=== PATIENT | female | born 1970 | race Caucasian/White ===

== ENCOUNTER 2020-09-03 14:05 | Emergency (ER) | payer MEDICAID, SELFPAY ==
[2020-09-03 14:17] VITALS: BP 145/81; PULSE 115; RESP 26; TEMP 36.9; O2SAT 99; BMI 16.4
--- NOTE | 2020-09-03 14:29 | XR_ITS ---
WS: [id number] XR chest 1V portable [id number] REASON FOR EXAM: chest pain FINDINGS: There is a mass density projected over the medial upper portion of the right lung which appears to be mediastinal, possibly enlarged lymph node or lymph nodes. This is associated with a very irregular t hickening of the apex of the right lung. The remainder of the mediastinum and lungs are unremarkable. No abnormality of the bony thorax is identified. XR/XR chest 1V portable [id number] IMPRESSION: The lung abnormalities described above were not present on views of the cervica l spine 05/23/2016 with this area of the chest included on the AP view. 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 A contrast-enhanced CT scan of the chest wou ld be the next most appropriate imaging to determine the diagnosis.
[2020-09-03 15:06] VITALS: BP 135/68; PULSE 108; RESP 18; O2SAT 100
--- NOTE | 2020-09-03 15:08 | ED_ITS ---
HPI - Chest Pain General: Chief Complaint: Chest Pain Stated Complaint: CP Time Seen by Provider: 09/03/20 14:29 History of Present Illness: HPI narrative: 50-year-old female presents emergency room with complaint of chest pain radiating to her shoulder blades. This began 4 days ago. She states it is worse when she takes deep breath better with shallow breathing other than that she has not really taken any medicines for she has noticed anything else that seems to relieve it. She denies any trauma. She not had any fever sweats or chills he is not had a productive cough or particularly been short of breath other than the fact that she just cannot take a deep breath. It is mildly reproducible with patient in the anterior chest wall. MD complaint: chest pain Onset (ago): day(s) (4) Timing of current episode: constant Onset: during rest Pain location: left chest Pain radiation: back, left shoulder and right shoulder Severity: severe Quality: sharp Relieving factors: nothing Exacerbating factors: other (Inspiration) Associated symptoms: Reports sense of impending doom; Deny abdominal pain, diaphoresis, dyspnea, fever(s), leg edema, nausea, palpitations, syncope, vomiting or other Review of Systems Const: Denies: fever(s) or diaphoresis ENMT: Denies: throat pain, ear or mastoid pain, nasal discharge or nasal congestion Card: Denies: palpitations or syncope Resp: Denies: dyspnea GI: Denies: abdominal pain, nausea or vomiting : Denies: flank pain, difficulty voiding, dysuria, urinary frequency or urinary urgency Skin/Breast: Denies: rash or pruritus [facility] ED PFSH: Medical History Anxiety Surgical History Delivery by section H/O dilation and curettage H/O LEEP History of hysterectomy S/P lumpectomy, right breast Physical Exam Const: COMMON NORMALS: no acute distress GENERAL APPEARANCE: cooperative and comfortable ORIENTATION/CONSCIOUSNESS: Yes awake, Yes oriented to person, Yes oriented to place and Yes oriented to time HENMT: COMMON NORMALS: normocephalic, atraumatic and hearing grossly normal bilaterally HEAD & SCALP: normocephalic and atraumatic Eye: COMMON NORMALS: Equal, round and reactive pupils present, EOMs intact bilaterally, conjunctivae normal and no scleral icterus CONJUNCTIVA: Yes conjunctivae normal PUPIL: Yes Equal, round and reactive pupils present Neck/C-Spine: COMMON NORMALS: full ROM, no lymphadenopathy, supple and no JVD Lymph: LYMPHATIC: no lymphadenopathy noted and no lymphedema noted Resp: COMMON NORMALS: normal respiratory effort, No retractions, No use of accessory muscles and clear to auscultation bilaterally AUSCULTATION: clear to auscultation bilaterally Cardio: COMMON NORMALS: no JVD, regular rate, regular rhythm and No murmurs present (Cardio) RATE: regular rate RHYTHM: regular rhythm GI: COMMON NORMALS: Soft to palpation and No hepatosplenomegaly present AUSCULTATION: Yes normoactive bowel sounds PALPATION: Yes Soft to palpation, No Tenderness to palpation present (GI), No Guarding due to palpation present (GI) and Yes No hepatosplenomegaly present Extremity: COMMON NORMALS: normal to inspection, capillary refill normal, no clubbing, cyanosis or edema, no calf tenderness and no pedal edema Neuro: SENSORIUM/ORIENTATION: Yes oriented to person, Yes oriented to place and Yes oriented to time Skin: COMMON NORMALS: no rashes or lesions noted GENERAL SKIN EXAM: no rashes or lesions noted Course Vital Signs: Vital signs: Vital Signs Temperature 98.5 F 09/03/20 14:17 Pulse Rate 97 09/03/20 15:48 Respiratory Rate 18 09/03/20 15:48 Blood Pressure 104/73 09/03/20 15:48 Pulse Oximetry 99 09/03/20 15:48 MDM - Chest Pain MDM Narrative: Medical decision making narrative: CT shows chest mass that it on the right that is highly suspicious for cancer with metastasis we will go and discharge home set up see pulmonology for bronchoscopy. Lab Data: Labs: Lab Results 09/03/20 09/03/20 09/03/20 Range/Units 15:03 15:03 15:03 WBC 15.3 H (4.0-10.0) 10^3/ uL RBC 4.40 (4.1-5.3) 10^6/u L Hgb 13.5 (11.5-15.3) g/dL Hct 41.7 (37.0-47.0) % MCV 94.8 (81-99) fL MCH 30.7 (28.0-34.0) pg MCHC 32.4 (30.0-36.0) g/dL RDW 12.2 (12.1-15.1) % Plt Count 332 (130-400) 10^3/c mm MPV 10.1 (7.4-10.4) fL Neut % (Auto) 71.0 % Lymph % (Auto) 19.0 % [place] % (Auto) 8.3 % Eos % (Auto) 0.8 % Baso % (Auto) 0.4 % Neut # (Auto) 10.89 H (1.8-7.7) 10^3/u L Lymph # (Auto) 2.9 (0.8-4.8) 10^3/u L [place] # (Auto) 1.3 H (0.2-0.9) 10^3/u L Eos # (Auto) 0.1 (0.0-0.8) 10^3/u L Baso # (Auto) 0.1 (0.0-0.1) 10^3/u L Nucleated RBC % (a uto) 0 % Nucleated RBCs # 0.0 /100WBC Sodium 140 (136-145) mmol/L Potassium 3.9 (3.5-5.1) mmol/L Chloride 105 (98-107) mmol/L Carbon Dioxide 24 (22-29) mmol/L Anion Gap 14.9 (5-19) BUN 5 L (6-20) mg/dL Creatinine 0.5 (0.5-0.9) mg/dL GFR Calculation 131.7 H (90-130) mL/min Glucose 93 (65-115) mg/dL Calculated Osmolal ity 287 (285-295) mOsm/k g Calcium 9.5 (8.5-10.5) mg/dL Total Bilirubin 0.2 (0.15-1.2) mg/dL AST 18 (0-32) U/L ALT 7 (0-33) U/L Alkaline Phosphata se 62 (35-105) IU/L Troponin T Baselin e 6 (0-10) ng/L Total Protein 6.7 (6.6-8.7) g/dL Albumin 4.6 (3.5-5.2) g/dL Globulin 2.1 (1.3-4.6) g/dL Discharge Plan Discharge Patient Disposition: Home Clinical Impression: Lung mass, Pleuritic chest pain Condition: Stable Prescriptions: New hydrocodone-acetaminophen 5-325 mg tablet 1 tab PO Q6H PRN (Reason: pain) Qty: 25 RF: 0 Zofran 4 mg tablet 4 mg PO Q6H PRN (Reason: nausea and vomiting) Qty: 20 RF: 0 Ativan 1 mg tablet 1 mg PO Q6H PRN (Reason: anxiety) Qty: 14 RF: 0 Discharge Orders: Discharge ED (Routine); Ordered 09/03/20 Ordered By: Nicola Sibley Referrals: Aslhey Jennings FNP [Primary Care Provider] - Activity Restrictions/Additional Instructions: Case management will call to assist to getting referrals for further evaluation of the chest mass. If you have increasing difficulty or uncontrollable pain return to the emergency room. Coding Level of Care Code ED Potter Or Ceramic Artist for Joeg Fwd Exam Comprehensive
[2020-09-03 15:11] LABS: Basophils # 0.1 10^3/uL (0.0-0.1); Basophils % 0.4 %; Eosinophils # 0.1 10^3/uL (0.0-0.8); Eosinophils % 0.8 %; Hematocrit 41.7 % (37.0-47.0); Hemoglobin 13.5 g/dL (11.5-15.3); Lymphocytes # 2.9 10^3/uL (0.8-4.8); Mean Corpuscular HGB Conc 32.4 g/dL (30.0-36.0); Mean Corpuscular Hemoglobin 30.7 pg (28.0-34.0); Mean Corpuscular Volume 94.8 fL (81-99); Mean Platelet Volume 10.1 fL (7.4-10.4); Monocytes # 1.3 10^3/uL (0.2-0.9); Monocytes % 8.3 %; Neutrophils # 10.89 10^3/uL (1.8-7.7); Nucleated Red Blood Cells % 0 %; Platelet Count 332 10^3/cmm (130-400); Red Cell Distribution Width 12.2 % (12.1-15.1); White Blood Count 15.3 10^3/uL (4.0-10.0)
--- NOTE | 2020-09-03 15:15 | CT_ITS ---
WS: [id number] CT CHEST ANGIOGRAPHY WITH REFORMATS HISTORY: Chest pain and abnormal chest CT. TECHNIQUE: Contiguous axial images are obtained through the chest during arterial injection of intrav enous contrast. Images are reconstructed to evaluate the pulmonary arteries. MIP imaging also reviewe d. All CT scans at [facility] use at least one of these dose optimization techniques: aut omated exposure control; mA and/or kV adjustment per patient size (includes targeted exams where dose is matched to clinical indication); or iterative reconstruction. CONTRAST: Omnipaque 350; 95 mL IV. DLP: 308.29 mGy.cm COMPARISON: Chest radiograph 09/03/2020. Very good opacification of the pulmonary arteries. No pulmonary embolism is identified. Mildly ectati c thoracic aorta. Scattered calcified plaque and intimal thickening. Heart size is normal. No RIGHT h eart strain. No pericardial or pleural effusions. Marked emphysema. RIGHT apical soft tissue mass centered at the apex, greatest laterally. Soft tissue mass measures at least 6.0 x 2.6 cm. There is additional interstitial thickening extending into the RIGHT upper lobe suggesting lymphangitic spread of tumor. No bone destruction is evident. Mass does e xtend medially to the upper thoracic vertebral bodies and is closely associated with the foramen at T 1-2. No supraclavicular lymph nodes are identified. Marked emphysema and hyperexpansion of both lungs. 5 mm nodule along the superior RIGHT major fissure . There is some very small indeterminate nodules along the RIGHT diaphragmatic surface. There is extensive mediastinal and hilar lymphadenopathy. Largest confluent lymph node group is along the RIGHT paratracheal location measuring 5.2 x 2.5 cm. Additional lymph nodes retroesophageal causi ng obscuration of the esophagus. Large RIGHT hilar lymph node maximum diameter 1.5 cm. There are poli tional smaller subcarinal lymph nodes. 1.1 cm lymph node near the RIGHT pulmonary vein. No evidence for metastatic disease in the liver on this early arterial enhancement examination. Hyper plastic LEFT adrenal gland. No evidence for metastatic disease to the osseous structures. CT/CT angio chest PE protcl [id number] IMPRESSION: 1. RIGHT apical soft tissue mass measures at least 6.0 x 2.6 cm. Likely a Panc oast tumor or metastatic disease.. 2. There is significant lymphadenopathy within the mediastinum and hilum. Larg est confluent group of lymph nodes is RIGHT paratracheal measuring 5.2 x 2.5 cm . 3. Additional small nodules along the RIGHT diaphragmatic surface may be metas tatic deposits. 4. Severe chronic emphysema. 5. Suspicious for lymphangitic spread of tumor into the RIGHT upper lobe. 6. No rib destruction or metastatic disease to the bones by CT. 7. No pulmonary embolism. 8. Mildly hyperplastic LEFT adrenal gland. Early metastatic lesion is not excl uded.
[2020-09-03 15:37] LABS: Alanine Aminotransferase 7 U/L (0-33); Albumin Level 4.6 g/dL (3.5-5.2); Alkaline Phosphatase 62 IU/L (35-105); Anion Gap 14.9 (5-19); Aspartate Amino Transferase 18 U/L (0-32); Blood Urea Nitrogen 5 mg/dL (6-20); Calcium 9.5 mg/dL (8.5-10.5); Carbon Dioxide 24 mmol/L (22-29); Chloride 105 mmol/L (98-107); Globulin 2.1 g/dL (1.3-4.6); Glomerular Filtration Rate 131.7 mL/min (90-130); Glucose 93 mg/dL (65-115); Osmolality Calculated 287 mOsm/kg (285-295); Potassium 3.9 mmol/L (3.5-5.1); Sodium 140 mmol/L (136-145); Total Bilirubin 0.2 mg/dL (0.15-1.2); Total Protein 6.7 g/dL (6.6-8.7)
[2020-09-03 15:38] LABS: Troponin(5th) Baseline 6 ng/L (0-10)
[2020-09-03] MEDS: iohexol 350 mg/mL 100 mL Btl IV (15:41)
[2020-09-03 15:45] VITALS: RESP 15; O2SAT 100
[2020-09-03] MEDS: morphine 4 mg/mL SDV 1 mL IVP (15:45)
[2020-09-03] MEDS: ondansetron 2 mg/ML SDV 2 mL 4 MG IVP (15:46)
[2020-09-03 15:48] VITALS: BP 104/73; PULSE 97; RESP 18; O2SAT 99
[2020-09-03 16:37] VITALS: BP 145/77; PULSE 94; RESP 14; O2SAT 96
--- NOTE | 2020-09-03 20:29 | ECG_ITS ---
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 Measurements Intervals Reading Rate: 102 P: 85 FL: 115 QRS: 87 QRSD: 86 T: 75 QT: 318 QTc: 415 Interpretive Statements SINUS TACHYCARDIA WITH SHORT FL INTERVAL RIGHT ATRIAL ENLARGEMENT [0.3mV P WAVE] LEFT ATRIAL ENLARGEMENT [-0.15mV P WAVE IN V1/V2] MODERATE ST DEPRESSION [0.05+ mV ST DEPRESSION] No previous ECG available for comparison Electronically Signed On 09-03-2020 20:57:59 PLASTER MOLD MAKER by Chloe Garzon M.D. [id number]
--- NOTE | 2020-09-06 10:13 | DCPLANNER ---
manager report had message to schedule a follow up appointment for patient with pulmonolgy. manager report called [facility], spoke with Ros, gave clinic patients information. A follow up appointment was scheduled for Monday, September 14, 2020 at 1:[address] Grande. manager report spoke with patient and gave patient appointment information.
--- NOTE | 2020-11-05 13:45 | DCPLANNER ---
Patient had a follow up appointment scheduled for 09.14.21 with heart care - patient did attend appointment.
== END 2020-09-03 16:38 | disposition home or self-care (01) ==
PROVIDERS: Emergency Provider Family Medicine; PCP Nurse Practitioner Family
DX: R07.81 Pleurodynia (principal); R91.8 Other nonspecific abnormal finding of lung field
CPT/HCPCS: 12345; 71045; 71275; 80053; 84484; 85025; 93005; 96374; 96375; 99282; 99284; J2270; J2405; Q9967

== ENCOUNTER → 2020-09-07 09:17 | Outpatient (BNVA) | payer MEDICAID, SELFPAY | PROVIDERS: PCP Nurse Practitioner Family; Visit Provider Internal Medicine Critical Care Medicine | DX: R91.8 Other nonspecific abnormal finding of lung field (principal) | CPT/HCPCS: 87635 ==

== ENCOUNTER 2020-09-10 05:59 | Day surgery (SDC) | payer MEDICAID, SELFPAY ==
[2020-09-09 14:07] VITALS: BMI 16.9
[2020-09-10] VITALS (12 sets, daily range): BP systolic 86–151; BP diastolic 48–88; PULSE 77–99; RESP 16–25; TEMP 36.4–37; O2SAT 68–100
--- NOTE | 2020-09-10 | CT_ITS ---
Guided Bronchoscopy Planning CT images; total exam DLP: 809.47 mGy-cm MTDD
--- NOTE | 2020-09-10 06:25 | ANES.PREANE2 ---
Pre-Anesthetic Assessment Pre-Anesthetic Assessment: Height/Weight: Height 1.5 m Weight 38.102 kg Temp Pulse Resp BP Pulse Ox 97.5 F L 84 18 97/63 99 09/10/20 06:11 09/10/20 06:11 09/10/20 06:11 09/10/20 06:11 09/10/20 06:11 Preop Diagnosis: Suspected lung cancer Proposed Procedure: Operation Date: 09/10/20 07:00 Proposed Procedures p Bhupinder(Not Applicable) - Madie Anand MD Last intake: Intake Last Liquid Date 09/09/20 Last Liquid Time 23:45 Last Solid Date 09/09/20 Last Solid Time 19:30 Social: Social History: Alcohol (occ) and Tobacco Exam: Pre-Anes Outpt Exam: alert, oriented x 3, clear to auscultation bilaterally and regular rate & rhythm Airway: Submandibular: WNL MP: 1 Dentition: Full (dentures) History/ROS: No significant history except as noted Pulmonary: Pulmonary: CHISHOLM Comments: lung mass CV/HEM: CV/HEM: None reported : : None reported Hepatic: Hepatic: None reported GI: GI: None reported Metabolic: Metabolic: None reported Musc/skel: Musc/skel: None reported Neuropsych: Neuropsych: None reported Anesthetic Plan: ASA status: 3 Anesthesia: Anesthesia Evaluation and General Risk of > 500 ml blood loss (7ml/kg in children): No PFSH Anesthesia PFSH: Medical History Anxiety Surgical History Delivery by section H/O dilation and curettage H/O LEEP History of hysterectomy S/P lumpectomy, right breast Social History Smoking and tobacco status: current every day smoker cigarettes Years cigarettes smoked: 40 [ Other cigarette details: Hx of 1PPD x 40 Years ] Quit status (tobacco): considering quitting Second hand smoke exposure: Yes Smoking risk assessment/counseling performed?: Yes Alcohol intake: current Alcohol intake frequency: holidays/special occasions only Desire information about substance/drug rehabilitation?: No Counseling given: Yes Lives independently: Yes Household members: spouse Marital status: Current occupational status: disabled History of recent travel: No Current gender identity: Female Data Anesthesia Cardiac Studies: No Data to Display
[2020-09-10] MEDS: sodium chloride 0.9% 500 ML 999 ML IV (06:30)
[2020-09-10] MEDS: sodium chloride 0.9% 1,000 ML 30 ML IV (06:32)
--- NOTE | 2020-09-10 06:49 | W.PM.OPSUD ---
Surgery/Procedure H&P Update DATE OF PROCEDURE: September 10, 2020 DATE H&P PERFORMED: 09/08/20 H&P UPDATE INFORMATION: I have reviewed H&P completed within last 30 days, I have examined patient prior to procedure and No changes to prior documentation PREOP DIAGNOSIS: Suspected lung cancer PRIMARY INDICATION FOR PROCEDURE: Suspected lung cancer PLANNED PROCEDURE: Bronchoscopy with inspection of the airway, possible endobronchial biopsies, bronchoalveolar lavage, navigational bronchoscopy guided transbronchial biopsies of the right upper lobe lung mass, fine-needle aspiration, Cytobrush, endobronchial ultrasound-guided transbronchial needle aspiration of lymph nodes and control of bleeding Operation Date: 09/10/20 07:00 Proposed Procedures p Vertasha(Not Applicable) - Madie Anand MD
[2020-09-10] MEDS: midazolam 1 mg/mL INJ 2 mL 2 MG IVP (06:56)
[2020-09-10] MEDS: lidocaine 1% INJ 20 mL SUBCUT (08:01)
--- NOTE | 2020-09-10 08:48 | P.OP_ITS ---
Operative Report Date of procedure: September 10, 2020 Pre-op Diagnosis: Suspected lung cancer Post-op diagnosis: same Brief History: This is a 50-year-old lady with recently identified lung mass suspicious for lung cancer coming in for bronchoscopic evaluation. Procedure: Name of the procedure: Bronchoscopy with inspection of the airway, navigational bronchoscopy guided transbronchial biopsies and fine-needle aspiration of right upper lobe lung mass, endobronchial ultrasound-guided transbronchial needle aspiration of lymph nodes and control of bleeding. Indication: Suspected lung cancer Anesthesia: General anesthesia. Local anesthesia: The vocal cords, jaki in the right and left mainstem bronchi were anesthetized with 1% lidocaine, 8 mL. Description of the procedure: The procedure was explained to the patient and the consent was obtained. The patient was brought to the OR. The patient underwent laryngeal mask airway placement for general anesthesia. Following induction of general anesthesia, the bronchoscope was advanced through the LMA. The vocal cords appeared normal. The vocal cords were anesthetized with 1% lidocaine. The lower trachea appeared to be mildly erythematous, no endotracheal lesion was seen. The jaki was sharp. The jaki, the right and left mainstem bronchi are anesthetized with 1% lidocaine. In a systematic manner bilateral bronchial tree was then examined. The bronchoscope was advanced into the left mainstem bronchus. There was no erythema,mucus or areas of cobblestoning. The left upper lobe, lingula and left lower lobe bronchi were examined up to the third subsegmental level and no abnormalities were identified. The bronchoscope was then introduced into the right mainstem bronchus. The right upper lobe, right middle lobe and right lower lobe bronchi were examined up to the third subsegmental level and no abnormalities were identified. Using navigational bronchoscopy, transbronchial biopsies and fine-needle aspirat ion will order for form from the right upper lobe lung mass. The endobronchial ultrasound was introduced through the ET tube. Large paratracheal lymphadenopathy on the right side was identified. Multiple transbronchial needle aspirations were performed from station 4R lymph node. Samples: 1. The transbronchial biopsies were sent for histopathology. 2. The fine-needle aspiration from right upper lobe lung mass were sent for histopathology and cytology. 3. Transbronchial needle aspiration of station 4 lymph node was sent for histopathology and cytology. Complications: There was no immediate complications. There is no significant bleeding. Chest x-ray: Pending
--- NOTE | 2020-09-10 09:04 | XR_ITS ---
WS: [id number] PORTABLE CHEST HISTORY: post bronchoscopy COMPARISON: 09/03/2020. No pneumothorax or hemorrhage status post bronchoscopy. Again noted is a marked pleural thickening at the RIGHT apex with extension into the parenchyma of th e RIGHT upper lobe. Hyperexpanded lungs from emphysema. No pleural effusion or pneumothorax. Cardiac size: Normal. Mediastinum/Aorta: RIGHT paratracheal mass measures 7.3 x 3.1 cm. No osseous abnormality seen. XR/XR chest 1V portable [id number] IMPRESSION: 1. No complications from the recent bronchoscopy. 2. Unchanged RIGHT apical pleural thickening with extension into the RIGHT upp er lobe and RIGHT paratracheal adenopathy.
--- NOTE | 2020-09-10 09:25 | SUR.PHASEI ---
0918 PT AWAKE ALERT VERBALIZING APPROP, COUGHING OCCASIONALLY VSS PT TO OPS HANDOFF AT BEDSIDE PT TAKING SIPS OF WATER WITHOUT DIFFICULTY.
--- NOTE | 2020-09-10 10:09 | SUR.PHASEII ---
Discussed patient with Dr Anand. Order for breathing treatment obtained. patient may be discharged after nebulizer treatment.
== END 2020-09-10 11:40 | disposition home or self-care (01) ==
PROVIDERS: PCP Nurse Practitioner Family; Visit Provider Internal Medicine Critical Care Medicine
PROC: 0BJ08ZZ Inspection of Tracheobronchial Tree, Via Natural or Artificial Opening Endoscopic (ICD-10-PCS; CPT 31622; principal; 2020-09-10 07:00)
PROC: BB4BZZZ Ultrasonography of Pleura (ICD-10-PCS; 2020-09-10 07:00)
DX: R91.8 Other nonspecific abnormal finding of lung field (principal); F17.210 Nicotine dependence, cigarettes, uncomplicated; F41.9 Anxiety disorder, unspecified
CPT/HCPCS: 12345; 31627; 31628; 71045; 77011; 80500; 88305; 94640; J1100; J2250; J2370; J2405; J2704; J3010; J3490; J7030; J7040; J7611

== ENCOUNTER 2020-09-23 09:43 | Outpatient (CLI) | payer MEDICAID, SELFPAY ==
--- NOTE | 2020-09-23 16:59 | ONC CON_ITS ---
Dr. Alberts New Patient Note Patient: Sia Coffman Unit #: [id number]: 1970 Dicatated By: Emile Alberts M.D.Date of Visit: Sep 23, 2020 Onc MED New Patient/Consult Referring Physician: Dr. UTE ARIAS M.D. History of Present Illness: Ms. Michelle Coffman, is a 50-year-old female with history of COPD and longstanding history of smoking e.g. 1 pack/day for 40+ years, recently developed progressive productive cough dyspnea on exertion and right posterior/upper back pain and on September 03, 2020 she went to hospital for evaluation and CT scan of the chest was done on September 03, 2020 which showed right apical soft tissue mass measuring 6 x 2.6 cm likely a Pancoast tumor or metastatic disease. There is significant lymphadenopathy within the mediastinum and hilum the largest confluent group of lymph nodes in the right paratracheal measuring 5.2 x 2.5 cm. And additional small nodules along the right diaphragmatic surface may be metastatic deposit. Severe chronic emphysema. Suspicious for lymphangitic spread of tumor to the right upper lobe., No rib destruction of metastatic disease to the bones by CT. No pulmonary embolism. 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 Denies any headaches blurred vision or double vision. Denies any lower extremity weakness, denies any dysphagia but she has history of significant weight loss as per patient she used to weigh 140 pounds [address] now way around 80 pounds. Patient still smoke about pack a day, denies alcohol use. Past Medical History: Ms. Landaverde medical history consists of anxiety. Past Surgical History: Ms. Landaverde surgical/procedural history consists of caesarean section, hysterectomy, LEEP, and right breast lumpectomy. Medications: Childrens Ibuprofen 15 mL (of 100 mg/5mL) Suspension Oral q 6 hours, HYDROcodone-Acetaminophen 10 mL (of 7.5-325 mg) Tablet Oral daily PRN, hydrOXYzine HCl 1 Tablet (of 10 mg) Oral at bedtime PRN Allergies: Aspirin Social History: Ms. Coffman is . She is a daily smoker who has smoked 1.0 pack/day for 40 years. She drinks occasionally. She has indicated exposure to the following products: cigarettes. Pt states she drinks very rarely. Family History: There is no documented family history. Review Of Symptoms: Constitutional - Appetite is good and weight is decreasing. No fever, night sweats, or hot flashes. Energy level is fair, ENMT - No sinus congestion/drainage. No mouth sores. No sore throat. Positive for difficulty swallowing, Hematologic/Lymphatic - No abnormal bruising or bleeding, Respiratory - Positive for shortness of breath. No cough. No pleuritic pain or hemoptysis, Cardiovascular - No angina pain. No palpitations, Gastrointestinal - No nausea or vomiting. No heartburn or acid reflux. No diarrhea or constipation. No blood in the stool or black stools, Genitourinary (F) - No dysuria or hematuria. No urinary frequency. No urgency or incontinence, Musculoskeletal - No joint or bone pain, Neurologic - No headache or dizziness. No numbness. Positive for tingling and neuropathy type pain (Pt describes it as a burning/fire sensation over her skin), Psychiatric - No anxiety or depression. No insomnia. Vital Signs: Performed on Sep 23, 2020 10:57: 10, 16.32 (LOW), 1.25 sq.m, 59 in, 100 %, 98 /min, 20 /min, 109/73 mm(hg), 98.3 F (LOW), and 80.8 lbs (HIGH). Performance Status: 2 - Ambulatory/capable of all self-care, unable to perform any work activities. Up and about more than 50% of waking hours. (ECOG) Physical Examination: ENMT - No mouth sores, no thrush, no jaundice, Respiratory - Poor air entry, mild wheezing bilaterally, Cardiovascular - Regular rate and rhythm of heart, Abdomen - Soft, bowel sounds present, Extremities - No visible edema. Lab/Imaging: Most recent lab results are not available for this patient. Impression: Poorly differentiated carcinoma with neuroendocrine differentiation per transbronchial biopsy done on September 10, 2020 also confirmed in 4R lymph node. Ki-67, Napsin-A, p53, CK 5/6, CK20 stains pending CT scan of chest done on September 03, 2020 showed right apical soft tissue mass measuring 6 x 2.6 cm, likely a Pancoast tumor or metastatic disease. Significant lymphadenopathy within the mediastinum and hilum. Largest confluent group of lymph nodes is right paratracheal measuring 5.2 x 2.5 cm. Severe chronic emphysema Additional small nodules right diaphragmatic surface No bone involvement No pulmonary embolism Mildly hypoplastic left adrenal gland. Plan: Discussed with patient regarding her disease status and treatment options, her case was discussed with pathologist today as final confirmation regarding histology is pending ,eg small cell lung cancer versus non-small cell versus metastatic disease , which will be confirmed based on immunohistochemistry included Ki-67, Napsin-A, p53, CK 5/6, CK7, CK20, And treatment will be planned based on this confirmation in the meantime , we will complete staging work-up with CT PET scan and MRI scan of the head. And also request Port-A-Cath placement. Because of severe right chest wall/posterior upper back pain, patient was advised to take hydrocodone/acetaminophen liquid on regular basis and use milk of magnesia for constipation. While waiting for histology confirmation ,We will also refer her to radiation oncology for evaluation for palliative radiation therapy patient will return to clinic in a week, by that time will have, as per pathologist, her histology confirmation based on immunohistochemistry stains. Patient was advised in case there is a worsening of pain, she need to go to hospital for evaluation and for possible inpatient pain management.^ ]Patient was also advised to quit smoking and was offered any assistance she may need Signed By: Emile Alberts M.D. <<Signature on File>>
== END 2020-09-23 09:44 | disposition home or self-care (01) ==
LOC: ONCMED 09:46
PROVIDERS: PCP Nurse Practitioner Family; Visit Provider Internal Medicine Hematology & Oncology
DX: C7A.1 Malignant poorly differentiated neuroendocrine tumors (principal); R59.0 Localized enlarged lymph nodes; J43.9 Emphysema, unspecified; R07.89 Other chest pain; M54.89 Other dorsalgia; K59.00 Constipation, unspecified; F17.210 Nicotine dependence, cigarettes, uncomplicated; Z79.891 Long term (current) use of opiate analgesic
CPT/HCPCS: 99203

== ENCOUNTER 2020-10-05 08:09 | Outpatient (CLI) | payer MEDICAID, SELFPAY ==
--- NOTE | 2020-10-05 08:15 | MR_ITS ---
WS: [id number] MRI BRAIN WITH AND WITHOUT CONTRAST HISTORY: LUNG CA COMPARISON: None available. TECHNIQUE: Multiplanar imaging performed through the brain with Prohance 8 ml's IV. No acute infarcts are seen. Fortune-white matter differentiation is well preserved. No signal abnormalit ies within the fortune or white matter from chronic ischemic disease or acute process. No susceptibility artifacts or prior lacunar infarcts. Ventricles and extra-axial spaces are normal. Clivus and pituitary gland are normal. Visualized posterior fossa and brainstem are also normal. Postcontrast images are negative for masses or vascular malformations. Dural venous sinuses are normal. Paranasal sinuses: Increased soft tissue in the frontal sinuses consistent with sinusitis. No air-flu id levels. Mastoid air cells: Normal. Calvarium and scalp: Normal. Mildly prominent soft tissue in the region of the adenoids. Probably postinflammatory. MR/MR head wo/w con [id number] IMPRESSION: 1. No evidence for metastatic disease to the brain. 2. No significant chronic white matter disease. 3. Frontal sinus disease.
== END 2020-10-05 08:10 | disposition home or self-care (01) ==
LOC: RADWPI 08:12
PROVIDERS: PCP Nurse Practitioner Family; Visit Provider Internal Medicine Hematology & Oncology
DX: C34.11 Malignant neoplasm of upper lobe, right bronchus or lung (principal)
CPT/HCPCS: 70553; A9579

== ENCOUNTER 2020-10-08 05:38 | Outpatient (RCR) | payer MEDICAID, SELFPAY ==
--- NOTE | 2020-09-27 15:31 | N.ONRAD NP_ITS ---
Radiation Oncology Consultation Note Patient Name: Sia Coffman Date of : 1970 Date of Service: 09/27/2020 Attending Physician: Fredi Rice M.D. Chel Coffman was seen in consultation this afternoon at the request of Sarabjit Alberts M.D. for consideration of palliative thoracic radiotherapy. I reviewed the patient's initial emergency department visit (in the EMR [facility]) and I directly visualized (in [facility]) the initial thoracic CT scan. A large right apical mass was confirmed that was associated with possible right diaphragmatic surface nodules and a hyperplastic left adrenal gland (stage [id number]-[id number]). The pathology report (directly canvassed by me) diagnosed a poorly differentiated malignancy with neuroendocrine features subsequent to a bronchoscopy performed by Kris Anand M.D. Following a discussion concerning Ms. Campoverde's pain, an attempt at palliative radiotherapy is warranted. I will prescribe a basal narcotic dose (Duragesic Patch) as the PET/CT is being scheduled to confirm metastatic disease. If the imaging identifies sites of disease beyond the thorax, I would recommend a two week course of hypo-fractionated radiotherapy focusing upon the previously described right apical mass. A computed tomographic radiotherapy planning scan in the treatment position will be performed to identify the gross tumor volume and treatment will attempt to provide palliation of her pain. The potential toxicities of thoracic radiotherapy were reviewed. The patient has verbalized understanding would like to proceed as recommended. Signed by: Dr. Fredi Rice 09/27/2020 3:30:14 PM
[2020-10-08 11:12] LABS: Basophils # 0.1 10^3/uL (0.0-0.1); Basophils % 0.7 %; Eosinophils # 0.2 10^3/uL (0.0-0.8); Eosinophils % 0.9 %; Hematocrit 41.5 % (37.0-47.0); Hemoglobin 13.6 g/dL (11.5-15.3); Lymphocytes # 2.7 10^3/uL (0.8-4.8); Lymphocytes % 14.5 %; Mean Corpuscular HGB Conc 32.8 g/dL (30.0-36.0); Mean Corpuscular Hemoglobin 30.1 pg (28.0-34.0); Mean Corpuscular Volume 91.8 fL (81-99); Mean Platelet Volume 10.4 fL (7.4-10.4); Monocytes # 1.9 10^3/uL (0.2-0.9); Neutrophils # 12.63 10^3/uL (1.8-7.7); Nucleated Red Blood Cells % 0 %; Platelet Count 325 10^3/cmm (130-400); Red Blood Count 4.52 10^6/uL (4.1-5.3); Red Cell Distribution Width 11.7 % (12.1-15.1); White Blood Count 18.6 10^3/uL (4.0-10.0)
[2020-10-08 11:29] LABS: Alanine Aminotransferase 42 U/L (0-33); Albumin Level 4.1 g/dL (3.5-5.2); Alkaline Phosphatase 88 IU/L (35-105); Aspartate Amino Transferase 56 U/L (0-32); Blood Urea Nitrogen 11 mg/dL (6-20); Carbon Dioxide 28 mmol/L (22-29); Chloride 98 mmol/L (98-107); Globulin 3.5 g/dL (1.3-4.6); Glomerular Filtration Rate 170.4 mL/min (90-130); Glucose 125 mg/dL (65-115); Osmolality Calculated 285 mOsm/kg (285-295); Sodium 137 mmol/L (136-145); Total Bilirubin 0.3 mg/dL (0.15-1.2); Total Protein 7.6 g/dL (6.6-8.7)
[2020-10-08 11:46] LABS: Slide Review Slide Review Perform
== END 2020-10-24 23:59 | disposition home or self-care (01) ==
LOC: ONCMED 05:38
PROVIDERS: PCP Nurse Practitioner Family; Visit Provider Radiology Radiation Oncology
DX: E27.8 Other specified disorders of adrenal gland (principal); R91.8 Other nonspecific abnormal finding of lung field; J43.9 Emphysema, unspecified; F17.200 Nicotine dependence, unspecified, uncomplicated; C34.90 Malignant neoplasm of unspecified part of unspecified bronchus or lung
CPT/HCPCS: 80053; 85025; 99215

== ENCOUNTER 2020-10-08 11:03 | Emergency (ER) | payer MEDICAID, SELFPAY ==
[2020-10-08 11:21] VITALS: BP 126/79; PULSE 126; RESP 18; TEMP 35.9; O2SAT 95; BMI 16.7
[2020-10-08 11:26] VITALS: BP 114/62; PULSE 116; RESP 14; TEMP 36.4; O2SAT 96
--- NOTE | 2020-10-08 11:37 | XR_ITS ---
WS: [id number] Chest with right rib detail, 10/08/2020 Clinical Data: fall, rib pain, rt Comparison: Portable chest, 09/10/2020. Findings: The apical thickening in the right chest has increased and now is seen overlapping the right fourth r ib. There is a right hilar mass which is also increased in size. There is now a left superior mediast inal adenopathy. The diaphragms are flattened. No pneumonia or pneumothorax is seen. The heart is normal. The ribs are intact. No rib fractures seen. No subcutaneous emphysema is present. No metastatic rib lesions are seen. XR/XR ribs RT mn 3V w CXR1V [id number] Impression: 1. Increase in right apical thickening, increased right hilar and left mediast inal adenopathy consistent with worsening lung cancer. 2. Negative for rib fracture or metastatic involvement to the ribs.
--- NOTE | 2020-10-08 11:37 | W.ED.RECABL ---
HPI - Recheck/Abnormal Lab/Rx General: Chief Complaint: Recheck/Abnormal Lab/Rx Stated Complaint: Rib pain Time Seen by Provider: 10/08/20 11:35 History of Present Illness: HPI narrative: 50-year-old female patient presents to the emergency department with right side rib pain. She reports sustained a fall last week, 7 days ago, hit her chest on the dresser trying to stop her fall. She reports out of her pain medication, fentanyl and hydrocodone. She receives her pain medication from Dr. Alberts at the cancer center due to lung cancer. She reports they would not fill her medication. she has active lung cancer, paratracheal tumor versus metastatic disease noted from CT scan completed in September; mediastinal lymphadenopathy present with largest lymph node measuring 5.2 x 2.5 cm. Varying metastatic disease noted to the diaphragm; call to [facility] oncology who stated patient received fentanyl prescription for 10 patches on September 27, 2020; stated she also received hydrocodone elixir; states no physician in the office to assist with medication refills. Review of Systems General: Reports: 10 or more systems reviewed and unremarkable except in HPI and below Const: Denies: fever(s), chills or diaphoresis Eyes: Denies: blurry vision or eye redness ENMT: Denies: throat pain, dental pain or disequilibrium Card: Denies: chest pain, palpitations or irregular heart rhythm Resp: Reports: dyspnea and pain on inspiration; Denies: productive cough, non-productive cough, wheezing or chest congestion GI: Denies: abdominal pain, nausea or vomiting : Denies: difficulty voiding or dysuria Musc: Denies: neck pain, back pain, joint pain or joint stiffness Skin/Breast: Denies: rash or pruritus Neuro: Denies: headache(s), weakness in extremities or behavioral changes Dave/Lymph: Denies: easy bruising PFSH ED PFSH: Medical History Anxiety Surgical History Delivery by section H/O dilation and curettage H/O LEEP History of hysterectomy S/P lumpectomy, right breast Social History Smoking and tobacco status: current every day smoker cigarettes Years cigarettes smoked: 40 [ Other cigarette details: Hx of 1PPD x 40 Years ] Quit status (tobacco): considering quitting Second hand smoke exposure: Yes Smoking risk assessment/counseling performed?: Yes Alcohol intake: current Alcohol intake frequency: holidays/special occasions only Desire information about substance/drug rehabilitation?: No Counseling given: Yes Lives independently: Yes Household members: spouse Marital status: Current occupational status: disabled History of recent travel: No Current gender identity: Female Physical Exam Const: COMMON NORMALS: no acute distress, patient oriented x3 and alert EXAM LIMITATIONS: no altered mental status and no physical limitations GENERAL APPEARANCE: cooperative, well kempt, anxious, frail appearing and well hydrated; not comfortable and not lethargic NUTRITIONAL APPEARANCE: overweight and thin ORIENTATION/CONSCIOUSNESS: Yes awake, Yes oriented to person, Yes oriented to place and Yes oriented to time; not lethargic HENMT: COMMON NORMALS: normocephalic, Normal external nose present and moist oral mucous membranes HEAD & SCALP: normocephalic NOSE: Normal external nose present Eye: COMMON NORMALS: Equal, round and reactive pupils present and EOMs intact bilaterally GENERAL EYE: appearance normal, both eyes and all related structures PUPIL: Yes Equal, round and reactive pupils present Neck/C-Spine: COMMON NORMALS: full ROM and no lymphadenopathy GENERAL: Yes normal visual inspection and Yes trachea midline CERVICAL SPINE: Yes cervical ROM normal, No Cervical spine tenderness, No Paracervical muscle tenderness, No Paracervical spasm and No Trapezius muscle tenderness Lymph: LYMPHATIC: no lymphadenopathy noted Chest: COMMONS NORMALS: normal inspection of the chest CHEST: Yes localized rib tenderness with anteroposterior compression and Yes tenderness (anterior chest wall, rt and underneath axilla) Resp: COMMON NORMALS: normal respiratory effort and clear to auscultation bilaterally EFFORT & INSPECTION: Yes able to speak in complete sentences, Yes decreased respiratory effort and Yes labored (due to pain) AUSCULTATION: clear to auscultation bilaterally and diminished lung sounds bilateral in the lower lung montaño Cardio: COMMON NORMALS: regular rate, regular rhythm, S1 normal heart sound present, S2 normal heart sound present and Peripheral pulses 2+ throughout RATE: regular rate RHYTHM: regular rhythm HEART SOUNDS: S1 normal heart sound present and S2 normal heart sound present PERIPHERAL PULSES: Peripheral pulses 2+ throughout GI: COMMON NORMALS: Soft to palpation and non-tender INSPECTION: Yes normal to inspection PALPATION: Yes Soft to palpation : COMMON NORMALS: Yes no CVA tenderness BLADDER/KIDNEY EXAM: Yes no CVA tenderness Back/Pelvis: COMMON NORMALS: no CVA tenderness and thoracic and lumbar spine normal to inspection Extremity: COMMON NORMALS: normal to inspection and capillary refill normal Neuro: COMMON NORMALS: patient oriented x3 and no focal motor deficits SENSORIUM/ORIENTATION: Yes alert, Yes oriented to person, Yes oriented to place, Yes oriented to time and No lethargic Psych: COMMON NORMALS: mental status grossly normal, Normal thought process present and cooperative APPEARANCE: Yes well kempt ACTIVITY/MOTOR BEHAVIOR: Yes appropriate eye contact THOUGHT PROCESS: Normal thought process present Skin: COMMON NORMALS: no rashes or lesions noted and turgor normal GENERAL SKIN EXAM: no rashes or lesions noted and turgor normal Course Vital Signs: Vital signs: Vital Signs Temperature 97.6 F 10/08/20 11:26 Pulse Rate 103 H 10/08/20 12:53 Respiratory Rate 16 10/08/20 12:53 Blood Pressure 127/78 10/08/20 12:53 Pulse Oximetry 96 10/08/20 12:53 MDM - Recheck/Abnormal Lab/Rx MDM Narrative: Medical decision making narrative: Pleasant 50-year-old female patient presents to the emergency department with right rib pain. Right rib fracture questioned as patient reports sustained a fall last week with increased right rib pain today. Chest x-ray revealed no acute fracture but findings evident with increased size of mediastinal adenopathy bilateral and worsening lung cancer. She has an appointment with Dr. Alberts next week, I spoke with Dr. Brock regarding pain medication needs; hydrocodone elixir will be provided as medication does help with her pain. She is requesting to go home to be with her family, agrees to return to the emergency department if she develops worsening symptoms such as pain, difficulty breathing or other concerning symptoms. director of home health services also contacted to assist with need for PET scan and other outpatient referral needs such as port placement as patient reports there is issues with her insurance and needed recommendations have not been completed. She agrees to return to the emergency department if she develops worsening symptoms such as shortness of breath, inability to catch her breath or other concerning symptoms; I discussed findings of chest x-ray with her today. Imaging Data^: CXR: Radiologist's impression: [address] [place] [address] XRay Report Signed Patient: Sia Coffman #: [id number] : 1970Acct#:[id number] Age/Sex: 50 / FADM Date: 10/08/20 Loc: ERRoom/Bed: Attending Dr: Ordering Provider/Ordering MD: Jumana Hodgson Date of Service: 10/08/20 Procedure(s): XR ribs RT mn 3V w CXR1V [id number] Accession Number(s): [id number] Report Number: [id number] WS: [id number] Chest with right rib detail, 10/08/2020 Clinical Data: fall, rib pain, rt Comparison: Portable chest, 09/10/2020. Findings: The apical thickening in the right chest has increased and now is seen overlapping the right fourth rib. There is a right hilar mass which is also increased in size. There is now a left superior mediastinal adenopathy. The diaphragms are flattened. No pneumonia or pneumothorax is seen. The heart is normal. The ribs are intact. No rib fractures seen. No subcutaneous emphysema is present. No metastatic rib lesions are seen. XR/XR ribs RT mn 3V w CXR1V [id number] Impression: 1. Increase in right apical thickening, increased right hilar and left mediastinal adenopathy consistent with worsening lung cancer. 2. Negative for rib fracture or metastatic involvement to the ribs. Dictated By:Shavonne Bhatt MD Signed By:Shavonne Bhatt MDSigned Date/Time:10/08/20 1208 DD/ 1204 Discharge Plan Discharge Patient Disposition: Home Clinical Impression: Cancer associated pain Contusion of rib on right side Qualifiers: Encounter type: initial encounter Qualified Code(s): S20.211A - Contusion of right front wall of thorax, initial encounter Condition: Stable Prescriptions: New hydrocodone-acetaminophen 7.5-325 mg/15 mL solution 15 ml PO Q6H PRN (Reason: pain) Qty: 250 RF: 0 No Action diazepam 5 mg/5 mL (1 mg/mL, 5 mL) solution 5 mg PO .q 6-8 hours PRN (Reason: muscle spasm) RF: 0 Stiolto Respimat 2.5-2.5 mcg/actuation mist 2 puff inhalation DAILY 30 Days Qty: 4 RF: 4 albuterol sulfate [ProAir HFA] 90 mcg/actuation HFA aerosol inhaler 2 puff inhalation QID PRN (Reason: shortness of breath or wheezing) 30 Days Qty: 18 RF: 4 hydrocodone-acetaminophen 10-325 mg/15 mL solution 15 ml PO Q4H PRN (Reason: Pain) RF: 0 Discharge Orders: Discharge ED (Routine); Ordered 10/08/20 Ordered By: Jumana Hodgson Referrals: Ashley Jennings FNP [Primary Care Provider] - Discharge Diet: Usual diet Discharge Activity: Resume usual activity Patient Instructions: Cancer Pain, Contusion in Adults (ED) Activity Restrictions/Additional Instructions: Continue follow up with oncology next week as scheduled take pain medication as prescribed -take laxatives as needed for constipation Increase fluid intake Rest at home, activity as tolerated Return to the emergency department if you develop difficulty breathing, inability to catch her breath or other concerning symptoms Coding Level of Care Code ED Regional Business Manager for Chg Fwd Exam Comprehensive
[2020-10-08] MEDS: HYDROcodone-APAP 7.5-325 mg/15 mL UDC PO (11:52)
[2020-10-08 12:14] VITALS: BP 108/71; PULSE 111; RESP 16; O2SAT 97
[2020-10-08 12:53] VITALS: BP 127/78; PULSE 103; RESP 16; O2SAT 96
--- NOTE | 2020-10-08 15:22 | PC.NURSE ---
Read and agree with assessment.
== END 2020-10-08 12:59 | disposition home or self-care (01) ==
PROVIDERS: Emergency Provider Nurse Practitioner Family; PCP Nurse Practitioner Family
DX: S20.211A Contusion of right front wall of thorax, initial encounter (principal); G89.3 Neoplasm related pain (acute) (chronic); F17.210 Nicotine dependence, cigarettes, uncomplicated; W19.XXXA Unspecified fall, initial encounter; C34.90 Malignant neoplasm of unspecified part of unspecified bronchus or lung
CPT/HCPCS: 12345; 71101; 99282; 99283

== ENCOUNTER → 2020-10-13 12:35 | Outpatient (BNVA) | payer MEDICAID, SELFPAY | PROVIDERS: PCP Nurse Practitioner Family; Visit Provider Surgery | DX: C34.90 Malignant neoplasm of unspecified part of unspecified bronchus or lung (principal) | CPT/HCPCS: 87635 ==

== ENCOUNTER 2020-10-14 18:16 | Emergency (ER) | payer MEDICAID, SELFPAY ==
[2020-10-14 18:21] VITALS: BP 107/65; PULSE 123; RESP 20; TEMP 37.7; O2SAT 94; BMI 17.2
[2020-10-14 18:42] VITALS: O2SAT 95
--- NOTE | 2020-10-14 19:18 | XR_ITS ---
WS: [id number] KUB, AP portable supine, 10/14/2020 Clinical Data: abdominal pain Comparison: None. Findings: No abnormal intraabdominal calcifications are seen. There is no dilatated small bowel or evidence of obstruction. The liver may be enlarged. There is air in the small bowel and colon. There is a moderate amount of f eces in the colon. XR/XR KUB portable [id number] Impression: 1. Generalized ileus. 2. Enlarged liver.
--- NOTE | 2020-10-14 19:20 | ED_ITS ---
Documented by User: MARIELENA Jimenez 10/15/20 00:41 HPI - Abdominal Pain General: Chief Complaint: Abdominal Pain Stated Complaint: Lower R ABD pain Time Seen by Provider: 10/14/20 18:54 Source: patient and family (s/o) Mode of arrival: ambulatory Limitations: no limitations History of Present Illness: HPI narrative: 50-year-old female patient presents to the emergency department with 2-day onset of right lower quadrant pain. She reports pain is continued despite use of prescribed narcotic medication. She has active lung cancer, currently under the care of Dr. Alberts -she reports last bowel movement was Friday, October 09, 2020; she reports experienced small amount of soft stool with scant amount of solid yesterday; she reports low-grade fever, chills that started yesterday. One episode of vomiting this morning with continued nausea. Previous hysterectomy/ as abdominal surgeries; last ate at 8 AM this morning but vomited. Has been n.p.o. since vomiting episode this morning. MD elicited complaint: abdominal pain Pertinent past history: constipation Onset (ago): day(s) (2) Pain Consistency: constant Location: RLQ Severity: moderate Quality: stabbing and dull Exacerbating factors: movement Relieving factors: rest Associated Symptoms: Reports anorexia, change in stool character, chills, constipation, diarrhea (yesterday), fever(s), nausea and vomiting; Denies belching, dysuria, heartburn and hematemesis Treatments prior to arrival: prescription analgesics Review of Systems General: Reports: 10 or more systems reviewed and unremarkable except in HPI and below Const: Reports: fever(s), chills and body aches Eyes: Denies: change in vision, blurry vision, eye discomfort, eye redness or dry eyes ENMT: Denies: throat pain, dental pain or disequilibrium Card: Denies: chest pain, palpitations or irregular heart rhythm Resp: Denies: dyspnea, productive cough, non-productive cough or wheezing GI: Reports: abdominal pain, nausea, vomiting, diarrhea (yesterday), constipation and change in stool character; Denies: hematemesis, heartburn or belching : Denies: difficulty voiding or dysuria Musc: Denies: neck pain, back pain, joint pain, joint warmth or joint stiffness Skin/Breast: Denies: rash or pruritus Neuro: Denies: headache(s), weakness in extremities or behavioral changes Psych: Denies: anxiety, depression or irritability Dave/Lymph: Denies: easy bruising PFSH ED PFSH: Medical History Anxiety Surgical History Delivery by section H/O dilation and curettage H/O LEEP History of hysterectomy S/P lumpectomy, right breast Social History Smoking and tobacco status: current every day smoker cigarettes Years cigarettes smoked: 40 [ Other cigarette details: Hx of 1PPD x 40 Years ] Quit status (tobacco): considering quitting Second hand smoke exposure: Yes Smoking risk assessment/counseling performed?: Yes Alcohol intake: current Alcohol intake frequency: holidays/special occasions only Desire information about substance/drug rehabilitation?: No Counseling given: Yes Lives independently: Yes Household members: spouse Marital status: Current occupational status: disabled History of recent travel: No Current gender identity: Female Physical Exam Const: COMMON NORMALS: patient oriented x3 and alert EXAM LIMITATIONS: no behavioral limitations and no physical limitations GENERAL APPEARANCE: cooperative, in distress, anxious and frail appearing NUTRITIONAL APPEARANCE: thin ORIENTATION/CONSCIOUSNESS: Yes awake, Yes oriented to person, Yes oriented to place and Yes oriented to time; not confused and not patient obtunded HENMT: COMMON NORMALS: normocephalic, atraumatic, Normal external nose present and moist oral mucous membranes HEAD & SCALP: normal to inspection, normocephalic and atraumatic FACE & SINUS: normal facial exam and face symmetric NOSE: Normal external nose present MOUTH: Normal oral and palatal mucosa present and tongue normal THROAT: posterior oropharynx normal, tonsils normal and uvula midline Eye: COMMON NORMALS: Equal, round and reactive pupils present and EOMs intact bilaterally GENERAL EYE: appearance normal, both eyes and all related structures PUPIL: Yes Equal, round and reactive pupils present Neck/C-Spine: COMMON NORMALS: full ROM and no lymphadenopathy GENERAL: Yes normal visual inspection and Yes trachea midline CERVICAL SPINE: Yes cervical ROM normal Lymph: LYMPHATIC: no lymphadenopathy noted Chest: COMMONS NORMALS: normal inspection of the chest Resp: COMMON NORMALS: normal respiratory effort, No use of accessory muscles and clear to auscultation bilaterally EFFORT & INSPECTION: Yes able to speak in complete sentences, No respiratory distress and No labored AUSCULTATION: clear to auscultation bilaterally and no wheezes Cardio: COMMON NORMALS: regular rate, regular rhythm, S1 normal heart sound present, S2 normal heart sound present and Peripheral pulses 2+ throughout RATE: regular rate RHYTHM: regular rhythm HEART SOUNDS: S1 normal heart sound present and S2 normal heart sound present PERIPHERAL PULSES: Peripheral pulses 2+ throughout GI: COMMON NORMALS: Soft to palpation INSPECTION: Yes normal to inspection, No abdominal wall ecchymosis, No central obesity, Yes scar (lower abdomen - small), No visible herniation and No GI erythema present AUSCULTATION: Yes Hypoactive bowel sounds present PALPATION: Yes Soft to palpation, Yes Ten derness to palpation present (GI) Details: RLQ, No Hernia present, Yes Rebound tenderness present and Yes Other GI palpation findings present (+ magno, + Mcburney) : BLADDER/KIDNEY EXAM: Yes CVA tenderness on the right EXTERNAL FEMALE EXAM: No Hernia present Back/Pelvis: COMMON NORMALS: thoracic and lumbar spine normal to inspection Extremity: COMMON NORMALS: normal to inspection and capillary refill normal Neuro: COMMON NORMALS: patient oriented x3 and no focal motor deficits SENSORIUM/ORIENTATION: Yes alert, Yes oriented to person, Yes oriented to place and Yes oriented to time Psych: COMMON NORMALS: mental status grossly normal, Normal thought process present and cooperative ACTIVITY/MOTOR BEHAVIOR: Yes appropriate eye contact THOUGHT PROCESS: Normal thought process present Skin: COMMON NORMALS: no rashes or lesions noted and turgor normal GENERAL SKIN EXAM: no rashes or lesions noted and turgor normal Course Vital Signs: Vital signs: Vital Signs Temperature 99.8 F H 10/14/20 18:21 Pulse Rate 114 H 10/15/20 00:09 Respiratory Rate 18 10/15/20 00:09 Blood Pressure 114/76 10/15/20 00:09 Pulse Oximetry 95 10/15/20 00:09 MDM - Abdominal Pain MDM Narrative: Medical decision making narrative: 50-year-old female patient with active lung cancer presents to the emergency department with abdominal pain, she continues with narcotic use secondary to cancer pain, CT scan of the abdomen completed secondary to suspicion of appendicitis, fecal retention, constipation was noted along with right ovarian mass; milk of molasses enema along with magnesium citrate administered, she did produce small bowel movement, she was able to tolerate p.o. fluids during her stay. I placed her on senna S twice daily to help with constipation. Advised continued follow-up with oncology; I also referred her to [facility] due to enlarged right ovary suspicious of disease. CBC was noted with slight elevation of white blood count which is chronic for her; CMP without acute findings, urinalysis without UTI. Differential Diagnosis: Differential diagnosis abdominal pain: Likely abdominal pain, acute appendicitis, pancreatitis and small bowel obstruction Medical Records: Attestation: I reviewed the patient's medical records. Lab Data: Attestation: I reviewed the patient's lab results. Labs: Lab Results 10/14/20 10/14/20 10/14/20 Range/Units 19:30 19:30 19:30 WBC 14.9 H (4.0-10.0) 10^3/ uL RBC 4.14 (4.1-5.3) 10^6/u L Hgb 12.4 (11.5-15.3) g/dL Hct 38.1 (37.0-47.0) % MCV 92.0 (81-99) fL MCH 30.0 (28.0-34.0) pg MCHC 32.5 (30.0-36.0) g/dL RDW 12.0 L (12.1-15.1) % Plt Count 265 (130-400) 10^3/c mm MPV 10.5 H (7.4-10.4) fL Lymph % (Auto) Not Reportable [place] % (Auto) Not Reportable Lymph # (Auto) Not Reportable [place] # (Auto) Not Reportable Total Counted 100 (0-100) Atypical Lymphs % 0.0 (0-5) % Absolute Neutrophi ls 10.7 H (1.4-6.5) 10^3/c mm Segmented Neutroph ils 69 % Abs Segm Neuts (Ma n) 10.3 H (1.6-7.1) 10/cmm Band Neutrophils 3.0 % Abs Band Neuts (Ma n) 0.4 (0.0-1.2) 10^3/c mm Lymphocytes (Manua l) 16 % Monocytes (Manual) 9.0 % Absolute Monocytes 1.3 H (0.1-0.6) 10^3/c mm Eosinophils (Manua l) 1 % Absolute Eosinophi ls 0.1 (0.0-0.7) 10^3/c mm Basophils (Manual) 0.0 % Absolute Basophils 0.0 (0.0-0.2) 10^3/c mm Platelet Estimate Normal (Normal) Sodium 133 L (136-145) mmol/L Potassium 4.4 (3.5-5.1) mmol/L Chloride 92 L (98-107) mmol/L Carbon Dioxide 27 (22-29) mmol/L Anion Gap 18.4 (5-19) BUN 16 (6-20) mg/dL Creatinine 0.4 L (0.5-0.9) mg/dL GFR Calculation 170.4 H (90-130) mL/min Glucose 131 H (65-115) mg/dL Calculated Osmolal ity 279 L (285-295) mOsm/k g Lactate 2.0 (0.5-2.2) mmol/L Calcium 13.0 H (8.5-10.5) mg/dL Total Bilirubin 0.4 (0.15-1.2) mg/dL AST 60 H (0-32) U/L ALT 42 H (0-33) U/L Alkaline Phosphata se 116 H (35-105) IU/L Total Protein 7.0 (6.6-8.7) g/dL Albumin 3.4 L (3.5-5.2) g/dL Globulin 3.6 (1.3-4.6) g/dL Lipase 14 (13-60) U/L Urine Color (Yellow) Urine Appearance (CLEAR) Urine pH (5-7) Ur Specific Gravit y (1.005-1.030) Urine Protein (Negative) Urine Glucose (UA) (Normal) Urine Ketones (Negative) Urine Blood (Negative) Urine Nitrate (Negative) Urine Bilirubin (Negative) Urine Urobilinogen (Negative) mg/dL Ur Leukocyte Rosario ase (Negative) Urine RBC (0-2) /hpf Urine WBC (0-5) /hpf Ur Squamous Epith Cells (0-5) /hpf Amorphous Sediment /hpf Urine Bacteria (NONE) /hpf 10/14/20 Range/Units 20:51 WBC (4.0-10.0) 10^3/ uL RBC (4.1-5.3) 10^6/u L Hgb (11.5-15.3) g/dL Hct (37.0-47.0) % MCV (81-99) fL MCH (28.0-34.0) pg MCHC (30.0-36.0) g/dL RDW (12.1-15.1) % Plt Count (130-400) 10^3/c mm MPV (7.4-10.4) fL Lymph % (Auto) [place] % (Auto) Lymph # (Auto) [place] # (Auto) Total Counted (0-100) Atypical Lymphs % (0-5) % Absolute Neutrophi ls (1.4-6.5) 10^3/c mm Segmented Neutroph ils % Abs Segm Neuts (Ma n) (1.6-7.1) 10/cmm Band Neutrophils % Abs Band Neuts (Ma n) (0.0-1.2) 10^3/c mm Lymphocytes (Manua l) % Monocytes (Manual) % Absolute Monocytes (0.1-0.6) 10^3/c mm Eosinophils (Manua l) % Absolute Eosinophi ls (0.0-0.7) 10^3/c mm Basophils (Manual) % Absolute Basophils (0.0-0.2) 10^3/c mm Platelet Estimate (Normal) Sodium (136-145) mmol/L Potassium (3.5-5.1) mmol/L Chloride (98-107) mmol/L Carbon Dioxide (22-29) mmol/L Anion Gap (5-19) BUN (6-20) mg/dL Creatinine (0.5-0.9) mg/dL GFR Calculation (90-130) mL/min Glucose (65-115) mg/dL Calculated Osmolal ity (285-295) mOsm/k g Lactate (0.5-2.2) mmol/L Calcium (8.5-10.5) mg/dL Total Bilirubin (0.15-1.2) mg/dL AST (0-32) U/L ALT (0-33) U/L Alkaline Phosphata se (35-105) IU/L Total Protein (6.6-8.7) g/dL Albumin (3.5-5.2) g/dL Globulin (1.3-4.6) g/dL Lipase (13-60) U/L Urine Color Yellow (Yellow) Urine Appearance Sl cloudy A (CLEAR) Urine pH 6.5 (5-7) Ur Specific Gravit y 1.010 (1.005-1.030) Urine Protein Neg (Negative) Urine Glucose (UA) Norm (Normal) Urine Ketones Negative (Negative) Urine Blood 2+ H (Negative) Urine Nitrate Negative (Negative) Urine Bilirubin Neg (Negative) Urine Urobilinogen Norm (Negative) mg/dL Ur Leukocyte Rosario ase Negative (Negative) Urine RBC 0-4 H (0-2) /hpf Urine WBC None (0-5) /hpf Ur Squamous Epith Cells 5-10 H (0-5) /hpf Amorphous Sediment Amorphous urates /hpf Urine Bacteria 1+ H (NONE) /hpf Imaging Data ^: CT Abd/Pel: Radiologist's impression: [place] [address] CT Scan Report Signed Patient: Sia Coffman Unit #: [id number] : 1970 Age/Sex: 50 / F ADM Date: 10/14/20 Loc: ER Room/Bed: Attending Dr: Ordering Provider/Ordering MD: Jumana Hodgson Date of Service: 10/14/20 Procedure(s): CT abdomen pelvis w con* [id number] Accession Number(s): [id number] Report Number: [id number] PROCEDURE INFORMATION: Exam: CT Abdomen And Pelvis With Contrast Exam date and time: 10/14/2020 8:26 PM Age: 50 years old Clinical indication: Nausea and vomiting; Abdominal pain; Localized; Right lower quadrant (rlq); Prior surgery; Surgery type: , hyst; Additional info: Rlq pain, ? appy TECHNIQUE: Imaging protocol: Computed tomography of the abdomen and pelvis with intravenous contrast. Total images: 188 Radiation optimization: All CT scans at this facility use at least one of these dose optimization techniques: automated exposure control; mA and/or kV adjustment per patient size (includes targeted exams where dose is matched to clinical indication); or iterative reconstruction. Contrast material: VISI 320; Contrast volume: 75 ml; Contrast route: INTRAVENOUS (IV); COMPARISON: US pelvic with transvaginal 12/17/2013 1:42 PM RADIATION DOSE METRICS: Total DLP (mGy-cm): 154.91 FINDINGS: Pleural space: Moderate volume right pleural effusion. Minimal subsegmental compressive atelectasis right lung base. Several pulmonary nodules within the field of view with concern for hematogenous metastasis. Pseudotumor with focal pleural effusion along the right major fissure. Liver: Diffuse hepatic metastatic disease. Hepatomegaly. Gallbladder and bile ducts: Gallbladder unremarkable. No visible cholelithiasis. Pancreas: Pancreas unremarkable. No visible pancreatic ductal ectasia. Spleen: Spleen unremarkable. Adrenal glands: Adrenal glands appear grossly unremarkable. No grossly visible adrenal mass. Kidneys and ureters: No hydronephrosis or perinephric fluid. No visible nephrolithiasis. Stomach and bowel: Heavy fecal residue consistent with constipation/obstipation. Associated colonic ileus. Appendix: The appendix is visualized and appears noninflamed. Intraperitoneal space: No visible pneumoperitoneum. Tiny amount of free fluid in the cul cul-de-sac. No visible diffuse intraperitoneal ascites. Vasculature: Portal vein patent. The abdominal aorta is nonaneurysmal. Moderate arterial sclerotic disease. Lymph nodes: No grossly visible enlarged lymph nodes. Urinary bladder: Urinary bladder without gross filling defect. Reproductive: Status post hysterectomy. Status post left oophorectomy. Right adnexal mixed cystic and solid mass, presumed right ovary, measuring 53 mm x 42 mm x 49 mm. 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 Bones/joints: No visible osteolytic or osteoblastic destructive process. Soft tissues: Unremarkable. Other findings: Cachexia. CT/CT abdomen pelvis w con* [id number] IMPRESSION: 1. Moderate volume right pleural effusion. Minimal subsegmental compressive atelectasis right lung base. 2. Several pulmonary nodules within the field of view with concern for hematogenous metastasis. 3. Diffuse hepatic metastatic disease. Hepatomegaly. 4. Heavy fecal residue consistent with constipation/obstipation. Associated colonic ileus. 5. The appendix is visualized and appears noninflamed. 6. Right adnexal mixed cystic and solid mass, presumed right ovary, measuring 53 mm x 42 mm x 49 mm. 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 Radiation Dose CTDIVOL = (mGy): DLP = 154.91 (mGy-cm) Dictated By: Nacho Mackey Signed By: Nacho Mackey Signed Date/Time: 10/14/202116 DD/ 15 Discharge Plan Discharge Patient Disposition: Home Clinical Impression: Abnormal CT of the abdomen Constipation Qualifiers: Constipation type: drug induced constipation Qualified Code(s): K59.03 - Drug induced constipation Abdominal pain Qualifiers: Abdominal location: right lower quadrant Qualified Code(s): R10.31 - Right lower quadrant pain Condition: Stable Prescriptions: New Senna Plus 8.6-50 mg tablet 1 tab-cap PO BID PRN (Reason: constipation) Qty: 20 RF: 0 No Action diazepam 5 mg/5 mL (1 mg/mL, 5 mL) solution 5 mg PO .q 6-8 hours PRN (Reason: muscle spasm) RF: 0 Stiolto Respimat 2.5-2.5 mcg/actuation mist 2 puff inhalation DAILY 30 Days Qty: 4 RF: 4 albuterol sulfate [ProAir HFA] 90 mcg/actuation HFA aerosol inhaler 2 puff inhalation QID PRN (Reason: shortness of breath or wheezing) 30 Days Qty: 18 RF: 4 hydrocodone-acetaminophen 7.5-325 mg/15 mL solution 15 ml PO Q6H PRN (Reason: pain) Qty: 250 RF: 0 Children's Ibuprofen 100 mg/5 mL Suspension 200 mg PO Q6H PRN (Reason: Pain) RF: 0 Discharge Orders: Discharge ED (Routine); Ordered 10/14/20 Ordered By: Jumana Hodgson Referrals: Ashley Jennings FNP [Primary Care Provider] - Discharge Diet: Usual diet Discharge Activity: Resume usual activity Patient Instructions: Constipation - Oncology, Constipation (ED), Abdominal Pain (ED) Activity Restrictions/Additional Instructions: guest services representative will be contacting you with an appointment with [facility] due to abnormal CT findings today of ovarian enlargement Continue follow-up with the cancer center, Dr. Alberts Drink plenty of fluids to help with hydration Return to the emergency department if you develop concerning/worsening symptoms such as worsening abdominal pain or nausea vomiting Coding Level of Care Code ED Proof Machine Operator for Chg Fwd Exam Comprehensive Documented by User: Grover Horn 10/14/20 19:59 HPI - Abdominal Pain General: Chief Complaint: Abdominal Pain Stated Complaint: Lower R ABD pain Time Seen by Provider: 10/14/20 18:54 PFSH ED PFSH: Medical History Anxiety Surgical History Delivery by section H/O dilation and curettage H/O LEEP History of hysterectomy S/P lumpectomy, right breast Social History Smoking and tobacco status: current every day smoker cigarettes Years cigarettes smoked: 40 [ Other cigarette details: Hx of 1PPD x 40 Years ] Quit status (tobacco): considering quitting Second hand smoke exposure: Yes Smoking risk assessment/counseling performed?: Yes Alcohol intake: current Alcohol intake frequency: holidays/special occasions only Desire information about substance/drug rehabilitation?: No Counseling given: Yes Lives independently: Yes Household members: spouse Marital status: Current occupational status: disabled History of recent travel: No Current gender identity: Female Course Vital Signs: Vital signs: Vital Signs Temperature 99.8 F H 10/14/20 18:21 Pulse Rate 114 H 10/15/20 00:09 Respiratory Rate 18 10/15/20 00:09 Blood Pressure 114/76 10/15/20 00:09 Pulse Oximetry 95 10/15/20 00:09 MDM - Abdominal Pain Lab Data: Labs: Lab Results 10/14/20 10/14/20 10/14/20 Range/Units 19:30 19:30 19:30 WBC 14.9 H (4.0-10.0) 10^3/ uL RBC 4.14 (4.1-5.3) 10^6/u L Hgb 12.4 (11.5-15.3) g/dL Hct 38.1 (37.0-47.0) % MCV 92.0 (81-99) fL MCH 30.0 (28.0-34.0) pg MCHC 32.5 (30.0-36.0) g/dL RDW 12.0 L (12.1-15.1) % Plt Count 265 (130-400) 10^3/c mm MPV 10.5 H (7.4-10.4) fL Lymph % (Auto) Not Reportable [place] % (Auto) Not Reportable Lymph # (Auto) Not Reportable [place] # (Auto) Not Reportable Total Counted 100 (0-100) Atypical Lymphs % 0.0 (0-5) % Absolute Neutrophi ls 10.7 H (1.4-6.5) 10^3/c mm Segmented Neutroph ils 69 % Abs Segm Neuts (Ma n) 10.3 H (1.6-7.1) 10/cmm Band Neutrophils 3.0 % Abs Band Neuts (Ma n) 0.4 (0.0-1.2) 10^3/c mm Lymphocytes (Manua l) 16 % Monocytes (Manual) 9.0 % Absolute Monocytes 1.3 H (0.1-0.6) 10^3/c mm Eosinophils (Manua l) 1 % Absolute Eosinophi ls 0.1 (0.0-0.7) 10^3/c mm Basophils (Manual) 0.0 % Absolute Basophils 0.0 (0.0-0.2) 10^3/c mm Platelet Estimate Normal (Normal) Sodium 133 L (136-145) mmol/L Potassium 4.4 (3.5-5.1) mmol/L Chloride 92 L (98-107) mmol/L Carbon Dioxide 27 (22-29) mmol/L Anion Gap 18.4 (5-19) BUN 16 (6-20) mg/dL Creatinine 0.4 L (0.5-0.9) mg/dL GFR Calculation 170.4 H (90-130) mL/min Glucose 131 H (65-115) mg/dL Calculated Osmolal ity 279 L (285-295) mOsm/k g Lactate 2.0 (0.5-2.2) mmol/L Calcium 13.0 H (8.5-10.5) mg/dL Total Bilirubin 0.4 (0.15-1.2) mg/dL AST 60 H (0-32) U/L ALT 42 H (0-33) U/L Alkaline Phosphata se 116 H (35-105) IU/L Total Protein 7.0 (6.6-8.7) g/dL Albumin 3.4 L (3.5-5.2) g/dL Globulin 3.6 (1.3-4.6) g/dL Lipase 14 (13-60) U/L Urine Color (Yellow) Urine Appearance (CLEAR) Urine pH (5-7) Ur Specific Gravit y (1.005-1.030) Urine Protein (Negative) Urine Glucose (UA) (Normal) Urine Ketones (Negative) Urine Blood (Negative) Urine Nitrate (Negative) Urine Bilirubin (Negative) Urine Urobilinogen (Negative) mg/dL Ur Leukocyte Rosario ase (Negative) Urine RBC (0-2) /hpf Urine WBC (0-5) /hpf Ur Squamous Epith Cells (0-5) /hpf Amorphous Sediment /hpf Urine Bacteria (NONE) /hpf 10/14/20 Range/Units 20:51 WBC (4.0-10.0) 10^3/ uL RBC (4.1-5.3) 10^6/u L Hgb (11.5-15.3) g/dL Hct (37.0-47.0) % MCV (81-99) fL MCH (28.0-34.0) pg MCHC (30.0-36.0) g/dL RDW (12.1-15.1) % Plt Count (130-400) 10^3/c mm MPV (7.4-10.4) fL Lymph % (Auto) [place] % (Auto) Lymph # (Auto) [place] # (Auto) Total Counted (0-100) Atypical Lymphs % (0-5) % Absolute Neutrophi ls (1.4-6.5) 10^3/c mm Segmented Neutroph ils % Abs Segm Neuts (Ma n) (1.6-7.1) 10/cmm Band Neutrophils % Abs Band Neuts (Ma n) (0.0-1.2) 10^3/c mm Lymphocytes (Manua l) % Monocytes (Manual) % Absolute Monocytes (0.1-0.6) 10^3/c mm Eosinophils (Manua l) % Absolute Eosinophi ls (0.0-0.7) 10^3/c mm Basophils (Manual) % Absolute Basophils (0.0-0.2) 10^3/c mm Platelet Estimate (Normal) Sodium (136-145) mmol/L Potassium (3.5-5.1) mmol/L Chloride (98-107) mmol/L Carbon Dioxide (22-29) mmol/L Anion Gap (5-19) BUN (6-20) mg/dL Creatinine (0.5-0.9) mg/dL GFR Calculation (90-130) mL/min Glucose (65-115) mg/dL Calculated Osmolal ity (285-295) mOsm/k g Lactate (0.5-2.2) mmol/L Calcium (8.5-10.5) mg/dL Total Bilirubin (0.15-1.2) mg/dL AST (0-32) U/L ALT (0-33) U/L Alkaline Phosphata se (35-105) IU/L Total Protein (6.6-8.7) g/dL Albumin (3.5-5.2) g/dL Globulin (1.3-4.6) g/dL Lipase (13-60) U/L Urine Color Yellow (Yellow) Urine Appearance Sl cloudy A (CLEAR) Urine pH 6.5 (5-7) Ur Specific Gravit y 1.010 (1.005-1.030) Urine Protein Neg (Negative) Urine Glucose (UA) Norm (Normal) Urine Ketones Negative (Negative) Urine Blood 2+ H (Negative) Urine Nitrate Negative (Negative) Urine Bilirubin Neg (Negative) Urine Urobilinogen Norm (Negative) mg/dL Ur Leukocyte Rosario ase Negative (Negative) Urine RBC 0-4 H (0-2) /hpf Urine WBC None (0-5) /hpf Ur Squamous Epith Cells 5-10 H (0-5) /hpf Amorphous Sediment Amorphous urates /hpf Urine Bacteria 1+ H (NONE) /hpf Discharge Plan Discharge Patient Disposition: Home Clinical Impression: Abnormal CT of the abdomen Constipation Qualifiers: Constipation type: drug induced constipation Qualified Code(s): K59.03 - Drug induced constipation Abdominal pain Qualifiers: Abdominal location: right lower quadrant Qualified Code(s): R10.31 - Right lower quadrant pain Condition: Stable Prescriptions: New Senna Plus 8.6-50 mg tablet 1 tab-cap PO BID PRN (Reason: constipation) Qty: 20 RF: 0 No Action diazepam 5 mg/5 mL (1 mg/mL, 5 mL) solution 5 mg PO .q 6-8 hours PRN (Reason: muscle spasm) RF: 0 Stiolto Respimat 2.5-2.5 mcg/actuation mist 2 puff inhalation DAILY 30 Days Qty: 4 RF: 4 albuterol sulfate [ProAir HFA] 90 mcg/actuation HFA aerosol inhaler 2 puff inhalation QID PRN (Reason: shortness of breath or wheezing) 30 Days Qty: 18 RF: 4 hydrocodone-acetaminophen 7.5-325 mg/15 mL solution 15 ml PO Q6H PRN (Reason: pain) Qty: 250 RF: 0 Children's Ibuprofen 100 mg/5 mL Suspension 200 mg PO Q6H PRN (Reason: Pain) RF: 0 Discharge Orders: Discharge ED (Routine); Ordered 10/14/20 Ordered By: Jumana Hodgson Referrals: Ashley Jennings FNP [Primary Care Provider] - Discharge Diet: Usual diet Discharge Activity: Resume usual activity Patient Instructions: Constipation - Oncology, Constipation (ED), Abdominal Pain (ED) Activity Restrictions/Additional Instructions: guest services representative will be contacting you with an appointment with [facility] due to abnormal CT findings today of ovarian enlargement Continue follow-up with the cancer center, Dr. Alberts Drink plenty of fluids to help with hydration Return to the emergency department if you develop concerning/worsening symptoms such as worsening abdominal pain or nausea vomiting Coding Level of Care Code ED Proof Machine Operator for Chg Fwd Exam Comprehensive
[2020-10-14] MEDS: sodium chloride 0.9% 1,000 ML 999 ML IV (19:44)
[2020-10-14] MEDS: ondansetron 2 mg/ML SDV 2 mL 4 MG IVP (19:45)
[2020-10-14 20:26] LABS: Hematocrit 38.1 % (37.0-47.0); Hemoglobin 12.4 g/dL (11.5-15.3); Mean Corpuscular HGB Conc 32.5 g/dL (30.0-36.0); Mean Platelet Volume 10.5 fL (7.4-10.4); Platelet Count 265 10^3/cmm (130-400); Red Blood Count 4.14 10^6/uL (4.1-5.3); White Blood Count 14.9 10^3/uL (4.0-10.0)
[2020-10-14 20:27] LABS: Alanine Aminotransferase 42 U/L (0-33); Albumin Level 3.4 g/dL (3.5-5.2); Alkaline Phosphatase 116 IU/L (35-105); Anion Gap 18.4 (5-19); Aspartate Amino Transferase 60 U/L (0-32); Blood Urea Nitrogen 16 mg/dL (6-20); Carbon Dioxide 27 mmol/L (22-29); Chloride 92 mmol/L (98-107); Globulin 3.6 g/dL (1.3-4.6); Glomerular Filtration Rate 170.4 mL/min (90-130); Glucose 131 mg/dL (65-115); Lipase 14 U/L (13-60); Osmolality Calculated 279 mOsm/kg (285-295); Potassium 4.4 mmol/L (3.5-5.1); Sodium 133 mmol/L (136-145); Total Bilirubin 0.4 mg/dL (0.15-1.2)
[2020-10-14] MEDS: iodixanol 320 mg/mL 100mL Btl IV (20:36)
[2020-10-14 21:05] LABS: Add Urine Microscopic? YES; Bacteria Urine 1+ /hpf; Bilirubin Urine Neg (Negative); Blood Urine 2+ (Negative); Glucose Urine UA Norm (Normal); Ketones Urine Negative (Negative); Leukocyte Esterase Urine Negative (Negative); Nitrate Urine Negative (Negative); Protein Urine Neg (Negative); RBC Urine 0-4 /hpf (0-2); Urine Color Yellow (Yellow); Urobilinogen Urine Norm (Negative); pH Urine 6.5 (5-7)
[2020-10-14 21:06] LABS: Add Urine Culture? No; Amorphous Sediment Urine AMORPHOUS URATES /hpf
[2020-10-14 21:10] LABS: Absolute Eosinophils 0.1 10^3/cmm (0.0-0.7); Absolute Segmented Neutrophil 10.3 10/cmm (1.6-7.1); Band Neutrophils Absolute 0.4 10^3/cmm (0.0-1.2); Eosinophils 1 %; Lymphocytes 16 %; Monocytes Absolute 1.3 10^3/cmm (0.1-0.6); Segmented Neutrophils 69 %; Total Cells Counted 100 (0-100)
[2020-10-14 21:11] LABS: Absolute Neutrophil 10.7 10^3/cmm (1.4-6.5); Platelet Estimate Normal (Normal)
[2020-10-14] MEDS: magnesium citrate Btl 296 mL PO (21:42)
[2020-10-14 23:22] VITALS: BP 137/89; PULSE 123; RESP 18; O2SAT 95
[2020-10-15 00:09] VITALS: BP 114/76; PULSE 114; RESP 18; O2SAT 95
== END 2020-10-15 00:11 | disposition home or self-care (01) ==
PROVIDERS: Emergency Provider Nurse Practitioner Family; PCP Nurse Practitioner Family
DX: K59.03 Drug induced constipation (principal); R10.31 Right lower quadrant pain; R93.5 Abnormal findings on diagnostic imaging of other abdominal regions, including retroperitoneum; F17.210 Nicotine dependence, cigarettes, uncomplicated
CPT/HCPCS: 12345; 74018; 74177; 80053; 81001; 83605; 83690; 85007; 85025; 96361; 96374; 96375; 99283; 99284; J2405; J7030; Q9967

== ENCOUNTER 2020-10-19 07:56 | Day surgery (SDC) | payer MEDICAID, SELFPAY ==
[2020-10-15 14:13] VITALS: BMI 17.9
--- NOTE | 2020-10-19 | SCC_ITS ---
Procedure Done: Right internal jugular vein PowerPort placement under ultrasound and fluoroscopic guidance by me through the whole entire procedure. 11.8 seconds of fluoroscopic guidance, for a cumulative dose of 1.03 mGy, was provided to Dr. Chaudhari by the radiology department. C-arm images of the chest were saved for the patient's permanent record. PAULD
--- NOTE | 2020-10-19 07:58 | SC_ITS ---
WS: [id number] INTRAOPERATIVE TECHNIQUE: 2 Spot fluoroscopic images for intraoperative purposes. FLUOROSCOPY TIME: 11.8 seconds CLINICAL INFORMATION: Powerport Placement COMPARISON: None. FINDINGS: Right central venous catheter with tip in the mid SVC. No visualized pneumothorax. Right hilar lympha denopathy. SC/C-arm [place] for CVA [id number] IMPRESSION: Images obtained for intraoperative purposes.
[2020-10-19 08:25] VITALS: BP 128/74; PULSE 127; RESP 18; TEMP 36.8; O2SAT 93
[2020-10-19] MEDS: sodium chloride 0.9% 1,000 ML 30 ML IV (08:38)
--- NOTE | 2020-10-19 08:53 | ANES.PREANE2 ---
Pre-Anesthetic Assessment Pre-Anesthetic Assessment: Height/Weight: Height 1.5 m Weight 40.37 kg Temp Pulse Resp BP Pulse Ox 98.3 F 127 H 18 128/74 93 10/19/20 08:25 10/19/20 08:25 10/19/20 08:25 10/19/20 08:25 10/19/20 08:25 Preop Diagnosis: Lung cancer Proposed Procedure: Operation Date: 10/19/20 09:10 Proposed Procedures p Portacath Placement 87971 C34.90(Not Applicable) - Ruperto Chaudhari MD Was Beta Gagan taken within 24 hours: N/A Last intake: Intake Last Liquid Date 10/19/20 Last Liquid Time 20:00 Last Solid Date 10/19/20 Last Solid Time 20:00 Social: Social History: Tobacco and No alcohol Exam: Pre-Anes Outpt Exam: alert, oriented x 3 and regular rate & rhythm Airway: Submandibular: WNL Cervical ROM: WNL MP: 2 Dentition: False Pulmonary: Pulmonary: COPD Comments: Lung mass right chest Neuropsych: Neuropsych: Anxiety Comments: Chronic pain/opioid Anesthetic Plan: ASA status: 3 Anesthesia: MAC Risk of > 500 ml blood loss (7ml/kg in children): No Meds/Allergies Current Medications: Current Medications Generic Name Dose Route Start Last Admin Trade Name Freq PRN Reason Stop Dose Admin Sodium Chloride 1,000 mls @ 30 ml s/hr 10/19/20 08:00 10/19/20 08:38 Sodium Chloride 0.9% IV 10/20/20 07:59 30 mls/hr .Q24H YUINOR Administration PFSH Anesthesia PFSH: Medical History Anxiety Surgical History Delivery by section H/O dilation and curettage H/O LEEP History of hysterectomy S/P lumpectomy, right breast Social History Smoking and tobacco status: current every day smoker cigarettes Years cigarettes smoked: 40 [ Other cigarette details: Hx of 1PPD x 40 Years ] Quit status (tobacco): considering quitting Second hand smoke exposure: Yes Smoking risk assessment/counseling performed?: Yes Alcohol intake: current Alcohol intake frequency: holidays/special occasions only Desire information about substance/drug rehabilitation?: No Counseling given: Yes Lives independently: Yes Household members: spouse Marital status: Current occupational status: disabled History of recent travel: No Current gender identity: Female Data Anesthesia Cardiac Studies: No Data to Display
[2020-10-19 09:00] VITALS: RESP 18; O2SAT 92
[2020-10-19] MEDS: fentaNYL 50 mcg/mL INJ 2mL IVP (09:00)
--- NOTE | 2020-10-19 09:50 | W.PM.OPSUD ---
Surgery/Procedure H&P Update DATE OF PROCEDURE: October 19, 2020 DATE H&P PERFORMED: 09/29/20 H&P UPDATE INFORMATION: I have reviewed H&P completed within last 30 days, I have examined patient prior to procedure and No changes to prior documentation PREOP DIAGNOSIS: Lung cancer PRIMARY INDICATION FOR PROCEDURE: The same PLANNED PROCEDURE: Operation Date: 10/19/20 09:10 Proposed Procedures p Portacath Placement 86895 C34.90(Not Applicable) - Ruperto Chaudhari MD
[2020-10-19] MEDS: lidocaine 2% INJ 20 mL INJECTION (10:29)
[2020-10-19] MEDS: heparin, porcine 1,000 unit/mL INJ 10 mL 9000 UNIT IRRIGATION (10:30)
--- NOTE | 2020-10-19 10:48 | PM.OP ---
Operative Report Date of procedure: October 19, 2020 Pre-op Diagnosis: Lung cancer Post-op diagnosis: same Procedure Done: Right internal jugular vein PowerPort placement under ultrasound and fluoroscopic guidance by me through the whole entire procedure. Implants: Right internal jugular vein PowerPort Surgeon: Ruperto Chaudhari Styrene Dehydration Reactor Operator: analytical technicianenzo Petersen Circulating nurse Linda Sandra Estimated blood loss (mL): 10 Condition: stable Disposition: same day Brief History: This is a pleasant 50 years old female patient history of lung cancer requiring PowerPort placed . plan of care; After thorough history physical examination and reviewing the chart, I counseled the patient for PowerPort placement, indications, risks including pneumothorax and injury of major vascular structures, benefits,indications and alternatives were all discussed with the patient, patient understands and is interested to proceed. Rationale was carefully and clearly discussed with the patient.Appropriate informed consent have been reviewed and signed. Procedure: U/S Guided IJ access Patient was identified in the holding area and taken to the operative room and placed in supine position IV propofol was given by the anesthesia provider ,both arms were tucked,Time-out was done verifying the patient's name/date of /planned procedure and destination after the procedure, all were in agreement. SCDs confirmed to be functioning, preoperative antibiotics administered per protocol, and beta tj protocol was confirmed, appropriate positioning of the patient was done by me. Medications were reviewed to assess for anticoagulant usage. Risks and benefits and prevention of central line associated blood stream infection (CLABSI) were discussed with the patient/CPOA, and a consent was obtained. Monitors were in place and monitored throughout the procedure. All necessary supplies were available prior to start. Hand hygiene was completed prior to starting. Maximum barrier technique was utilized including a sterile gown, sterile gloves with a hat and mask. Site was was prepped with [chlorhexidine] and a full body drape was placed. 5 mL of 2% lidocaine was injected into the skin with a 25 gauge needle. Prep& drape was done under the usual sterile technique, lidocaine 2% was injected at the site of the stick, started by right subclavian vein first but arterial blood was retrieved pressure was held and further attempt was not successful to access the subclavian vein at this point I did abort and deviated my attention towards the right Internal Juglar vein stick that retrieved venous blood was obtained from the first stick under ultrasound guidance and there was no evidence of intraluminal thrombosis, interpretation was done by me through the whole entire procedure, a guidewire was then threaded and under the guidance of fluoroscopy position was confirmed to be in the IVC and my interpretation, there was no PVC changes, at that point the guidewire was secured to the drapes with a hemostat and the needle was taken out. Attention was then deviated towards creation of a pocket for the port were lidocaine 2% was injected using an 15 blade knife skin incision was created at the right upper Chest ,dissection using the Bovie to create a pocket for the Port-A-Cath to be accommodated, hemostasis was secured, after the port being appropriately flushed it was inserted into the pocket and a tunneler was used to accommodate the catheter of the port cath to be delivered through the incision first created at the site of the stick, and then I was able to retrieve the catheter at the index site of the stick. At that point under fluoroscopy an estimated length was measured for the catheter and was cut at the designed level, followed by that a dilator with the sheath introduced onto the guidewire the dilator and the wire were retrieved and the catheter of the port was introduced via the sheath where it was peeled off and the catheter maintained to be in the SVC that was confirmed with fluoroscopy, and the fluoroscopy interpretation was done by me throughout the entire procedure. Multiple flushes of the port was done by heparin and I was able to retrieve without difficulty venous blood as well as appropriate flushing was achieved. The port was kept in its pocket, followed by 3-0 Vicryl deep subdermal continue sutures, skin was then closed by 4-0 Monocryl as subcuticular closure. The stick site was closed by 3-0 Vicryl and surgical glue was used followed by dressing. Patient tolerated the procedure well was taken to the recovery area Count was correct at the end of the procedure I was present for the whole entire procedure Chest x-ray after the procedure was done and showed no complications and the catheter in good position
--- NOTE | 2020-10-19 10:52 | XR_ITS ---
WS: [id number] CHEST XRAY TECHNIQUE: Portable chest. CLINICAL INFORMATION: Status post right internal jugular vein COMPARISON: None. FINDINGS: Right central venous catheter tip in the proximal SVC. No visualized pneumothorax. Right pleural effu geovanna and pleural thickening in the right lung apex. Right hilar and subcarinal lymphadenopathy. Mild interstitial infiltrate/edema in the right greater than left lungs. XR/XR chest 1V portable [id number] IMPRESSION: Right central venous catheter with tip in the proximal SVC. No pneumothorax.
[2020-10-19 10:58] VITALS: BP 140/86; PULSE 105; RESP 18; TEMP 36.6; O2SAT 91
[2020-10-19 11:21] VITALS: BP 140/82; PULSE 103; RESP 18; O2SAT 91
--- NOTE | 2020-10-19 13:35 | ANE.PACU2 ---
Inpatient post-anesthesia follow up: Airway intact: Yes Vital signs: Temperature 97.8 F Pulse Rate 103 Respiratory Rate 18 Blood Pressure 140/82 Pulse Oximetry 91 Oxygen Delivery Me thod Room Air Oxygen Flow Rate Fraction of Inspir ed Oxygen Hydration adequate: Yes Nausea and vomiting: No Pain level: 2 Mental status: Baseline
== END 2020-10-19 11:50 | disposition home or self-care (01) ==
PROVIDERS: PCP Nurse Practitioner Family; Visit Provider Surgery
PROC: (CPT 36561; principal; 2020-10-19 09:10)
DX: C34.90 Malignant neoplasm of unspecified part of unspecified bronchus or lung (principal); J44.9 Chronic obstructive pulmonary disease, unspecified; F17.210 Nicotine dependence, cigarettes, uncomplicated; G89.29 Other chronic pain; Z79.891 Long term (current) use of opiate analgesic
CPT/HCPCS: 36561; 12345; 71045; 77001; 96365; 96374; C1788; J0690; J1644; J2704; J3010; J7030

== ENCOUNTER 2020-11-01 12:16 | Inpatient (IN) | payer MEDICAID, SELFPAY ==
[2020-11-01] VITALS (10 sets, daily range): BP systolic 110–131; BP diastolic 63–88; PULSE 88–120; RESP 4–23; TEMP 36.8–37.2; O2SAT 90–95; BMI 16.3
--- NOTE | 2020-11-01 13:44 | ED_ITS ---
HPI - General Adult General: Chief complaint: General Medical Stated complaint: cannot eat/drink, groggy feeling Time Seen by Provider: 11/01/20 13:34 Source: patient Mode of arrival: ambulatory Limitations: no limitations History of Present Illness: HPI narrative: 42-year-old female has a history of lung cancer. She has not started any treatment. states that over the last 2 to 3 days she has had increasing confusion along with weakness. Patient is quite frail appearing and cachectic. She has had difficulty eating and has had nausea. She states she has had some abdominal distention as well. She denies any fever or cough. Denies any worsening improving factors. Associated symptoms: Reports confusion and nausea; Deny chest pain, dyspnea or rash Review of Systems Const: Denies: fever(s), chills, body aches or change in appetite Eyes: Denies: blurry vision or eye discomfort ENMT: Denies: throat pain or dental pain Card: Denies: chest pain Resp: Denies: dyspnea GI: Reports: nausea : Denies: dysuria Musc: Denies: neck pain or back pain Skin/Breast: Denies: rash Neuro: Reports: confusion Psych: Denies: depression Dave/Lymph: Denies: easy bruising All/Imm: Denies: urticaria PFSH ED PFSH: Medical History Anxiety Surgical History Delivery by section H/O dilation and curettage H/O LEEP History of hysterectomy S/P lumpectomy, right breast Social History Smoking and tobacco status: current every day smoker cigarettes Years cigarettes smoked: 40 [ Other cigarette details: Hx of 1PPD x 40 Years ] Quit status (tobacco): considering quitting Second hand smoke exposure: Yes Smoking risk assessment/counseling performed?: Yes Alcohol intake: current Alcohol intake frequency: holidays/special occasions only Desire information about substance/drug rehabilitation?: No Counseling given: Yes Lives independently: Yes Household members: spouse Marital status: Current occupational status: disabled History of recent travel: No Current gender identity: Female Physical Exam Const: COMMON NORMALS: patient oriented x3 GENERAL APPEARANCE: ill appearing and frail appearing HENMT: COMMON NORMALS: normocephalic and atraumatic HEAD & SCALP: normocephalic and atraumatic Eye: COMMON NORMALS: Equal, round and reactive pupils present and EOMs intact bilaterally PUPIL: Yes Equal, round and reactive pupils present Neck/C-Spine: COMMON NORMALS: full ROM and supple Chest: COMMONS NORMALS: normal inspection of the chest and normal palpation of entire chest wall Resp: COMMON NORMALS: normal respiratory effort, No retractions, No use of accessory muscles and clear to auscultation bilaterally EFFORT & INSPECTION: Yes tachypneic AUSCULTATION: clear to auscultation bilaterally Cardio: COMMON NORMALS: regular rhythm and No murmurs present (Cardio) RATE: tachycardic RHYTHM: regular rhythm GI: COMMON NORMALS: Normal to inspection, nondistended, normoactive bowel sounds present, Soft to palpation, non-tender and no masses PALPATION: Yes Soft to palpation Extremity: COMMON NORMALS: normal to inspection and full ROM Neuro: COMMON NORMALS: patient oriented x3, moves all extremities and no focal motor deficits Psych: COMMON NORMALS: mental status grossly normal, Normal thought process present and cooperative THOUGHT PROCESS: Normal thought process present Skin: COMMON NORMALS: no rashes or lesions noted and no wounds GENERAL SKIN EXAM: no rashes or lesions noted Course Vital Signs: Vital signs: Vital Signs Temperature 98.2 F 11/01/20 12:25 Pulse Rate 117 H 11/01/20 16:10 Respiratory Rate 4 L 11/01/20 16:10 Blood Pressure 113/78 11/01/20 16:10 Pulse Oximetry 94 11/01/20 16:10 MDM - General Adult MDM Narrative: Medical decision making narrative: Patient presents here with shortness of breath does have a history of lung cancer. She has a very large pleural effusion on the right likely malignant possibly infectious. Patient was started on IV antibiotics. Spoke to hospitalist and will admit. CT abdomen showed no acute blockages causing her constipation. She does have diffuse metastatic disease. Patient's blood pressures here been stable. Lab Data: Labs: Lab Results 11/01/20 11/01/20 11/01/20 Range/Units 14:00 14:00 14:00 WBC 23.9 H (4.0-10.0) 10^3/ uL Corrected WBC 22.1 H (4.8-10.8) 10^3/ cmm RBC 3.72 L (4.1-5.3) 10^6/u L Hgb 10.7 L (11.5-15.3) g/dL Hct 34.8 L (37.0-47.0) % MCV 93.5 (81-99) fL MCH 28.8 (28.0-34.0) pg MCHC 30.7 (30.0-36.0) g/dL RDW 14.6 (12.1-15.1) % Plt Count 73 L (130-400) 10^3/c mm MPV 9.9 (7.4-10.4) fL Lymph % (Auto) Not Reportable [place] % (Auto) Not Reportable Lymph # (Auto) Not Reportable [place] # (Auto) Not Reportable Total Counted 100 (0-100) Atypical Lymphs % 1.0 (0-5) % Absolute Neutrophi ls 15.5 H (1.4-6.5) 10^3/c mm Segmented Neutroph ils 53 % Abs Segm Neuts (Ma n) 12.7 H (1.6-7.1) 10/cmm Band Neutrophils 12.0 % Abs Band Neuts (Ma n) 2.9 H (0.0-1.2) 10^3/c mm Lymphocytes (Manua l) 23 % Monocytes (Manual) 4.0 % Absolute Monocytes 1.0 H (0.1-0.6) 10^3/c mm Eosinophils (Manua l) 3 % Absolute Eosinophi ls 0.7 (0.0-0.7) 10^3/c mm Basophils (Manual) 0.0 % Absolute Basophils 0.0 (0.0-0.2) 10^3/c mm Metamyelocytes 2.0 % Myelocytes 1.0 % Promyelocytes 1.0 % Nucleated RBCs 8.0 H (0-1) /100WBC Platelet Estimate Decreased L (Normal) Anisocytosis Trace Specimen Type Sample Site ABG pH (7.35-7.45) ABG pCO2 (35-45) mmHg ABG pO2 (80.0-100.0) mmH g ABG HCO3 (22-26) mmol/L ABG Base Excess (-2.0-2.0) mmol/ L Mello Test Hematocrit (37-47) % O2 Delivery Device O2 Liters/Min % Custom Framing Specialist ID Sodium 138 (136-145) mmol/L Potassium 4.2 (3.5-5.1) mmol/L Chloride 98 (98-107) mmol/L Carbon Dioxide 29 (22-29) mmol/L Anion Gap 15.2 (5-19) BUN 22 H (6-20) mg/dL Creatinine 0.3 L (0.5-0.9) mg/dL GFR Calculation 237.4 H (90-130) mL/min Glucose 94 (65-115) mg/dL Calculated Osmolal ity 289 (285-295) mOsm/k g Lactate 3.4 H (0.5-2.2) mmol/L Calcium 14.2 H* (8.5-10.5) mg/dL Total Bilirubin 0.5 (0.15-1.2) mg/dL AST 80 H (0-32) U/L ALT 24 (0-33) U/L Alkaline Phosphata se 167 H (35-105) IU/L Total Protein 6.1 L (6.6-8.7) g/dL Albumin 2.7 L (3.5-5.2) g/dL Globulin 3.4 (1.3-4.6) g/dL Urine Color (Yellow) Urine Appearance (CLEAR) Urine pH (5-7) Ur Specific Gravit y (1.005-1.030) Urine Protein (Negative) Urine Glucose (UA) (Normal) Urine Ketones (Negative) Urine Blood (Negative) Urine Nitrate (Negative) Urine Bilirubin (Negative) Urine Urobilinogen (Negative) mg/dL Ur Leukocyte Rosario ase (Negative) Urine RBC (0-2) /hpf Urine WBC (0-5) /hpf Ur Squamous Epith Cells (0-5) /hpf Amorphous Sediment Urine Bacteria (NONE) /hpf 11/01/20 11/01/20 Range/Units 14:08 14:42 WBC (4.0-10.0) 10^3/ uL Corrected WBC (4.8-10.8) 10^3/ cmm RBC (4.1-5.3) 10^6/u L Hgb (11.5-15.3) g/dL Hct (37.0-47.0) % MCV (81-99) fL MCH (28.0-34.0) pg MCHC (30.0-36.0) g/dL RDW (12.1-15.1) % Plt Count (130-400) 10^3/c mm MPV (7.4-10.4) fL Lymph % (Auto) [place] % (Auto) Lymph # (Auto) [place] # (Auto) Total Counted (0-100) Atypical Lymphs % (0-5) % Absolute Neutrophi ls (1.4-6.5) 10^3/c mm Segmented Neutroph ils % Abs Segm Neuts (Ma n) (1.6-7.1) 10/cmm Band Neutrophils % Abs Band Neuts (Ma n) (0.0-1.2) 10^3/c mm Lymphocytes (Manua l) % Monocytes (Manual) % Absolute Monocytes (0.1-0.6) 10^3/c mm Eosinophils (Manua l) % Absolute Eosinophi ls (0.0-0.7) 10^3/c mm Basophils (Manual) % Absolute Basophils (0.0-0.2) 10^3/c mm Metamyelocytes % Myelocytes % Promyelocytes % Nucleated RBCs (0-1) /100WBC Platelet Estimate (Normal) Anisocytosis Specimen Type Arterial Sample Site Radial, left ABG pH 7.47 H (7.35-7.45) ABG pCO2 43.9 (35-45) mmHg ABG pO2 63.1 L (80.0-100.0) mmH g ABG HCO3 32.1 H (22-26) mmol/L ABG Base Excess 7.6 H (-2.0-2.0) mmol/ L Mello Test Pos Hematocrit 34.5 L (37-47) % O2 Delivery Device Nc O2 Liters/Min 3.0 % Custom Framing Specialist ID jmn Sodium (136-145) mmol/L Potassium (3.5-5.1) mmol/L Chloride (98-107) mmol/L Carbon Dioxide (22-29) mmol/L Anion Gap (5-19) BUN (6-20) mg/dL Creatinine (0.5-0.9) mg/dL GFR Calculation (90-130) mL/min Glucose (65-115) mg/dL Calculated Osmolal ity (285-295) mOsm/k g Lactate (0.5-2.2) mmol/L Calcium (8.5-10.5) mg/dL Total Bilirubin (0.15-1.2) mg/dL AST (0-32) U/L ALT (0-33) U/L Alkaline Phosphata se (35-105) IU/L Total Protein (6.6-8.7) g/dL Albumin (3.5-5.2) g/dL Globulin (1.3-4.6) g/dL Urine Color Dark yellow (Yellow) Urine Appearance Clear (CLEAR) Urine pH 5 (5-7) Ur Specific Gravit y 1.025 (1.005-1.030) Urine Protein Trace (Negative) Urine Glucose (UA) Norm (Normal) Urine Ketones Negative (Negative) Urine Blood 3+ H (Negative) Urine Nitrate Negative (Negative) Urine Bilirubin Neg (Negative) Urine Urobilinogen 4 H (Negative) mg/dL Ur Leukocyte Rosario ase Negative (Negative) Urine RBC 0-4 H (0-2) /hpf Urine WBC 0-4 H (0-5) /hpf Ur Squamous Epith Cells 5-10 H (0-5) /hpf Amorphous Sediment Not Reportable Urine Bacteria 1+ H (NONE) /hpf Imaging Data^: CXR: Attestation: I personally reviewed and interpreted this imaging study as follows: Radiologist's impression: [address] [address] XRay Report Signed Patient: Sia Coffman Unit #: [id number] : 1970 Age/Sex: 50 / F ADM Date: 11/01/20 Loc: ER Room/Bed: Attending Dr: Ordering Provider/Ordering MD: Bethanie Sena MD Date of Service: 11/01/20 Procedure(s): XR chest 1V portable [id number] Accession Number(s): [id number] Report Number: [id number] PROCEDURE INFORMATION: Exam: XR Chest, 1 View Exam date and time: 11/01/2020 1:44 PM Age: 50 years old Clinical indication: Shortness of breath; Chest pain; Type not specified; Prior surgery; Surgery type: Port; Additional info: SOB TECHNIQUE: Imaging protocol: XR of the chest Views: 1 view. COMPARISON: ND XR chest 1V portable [id number] 10/19/2020 11:04 AM FINDINGS: Tubes, catheters and devices: There is a right jugular port with the catheter tip projecting over the upper mediastinum, likely in the right brachiocephalic vein or upper superior vena cava. The catheter has retracted in a superior direction. Lungs: Interval volume loss in the right lung with some residual aeration right upper lobe. The latter is associated with potential interstitial edema or lymphangitic spread of malignancy. An underlying right lung mass or hilar mass is not excluded on this exam. Small nonspecific nodules in the left upper lobe. Pulmonary metastatic disease is in the differential diagnosis. Pleural spaces: Large right pleural effusion. No left pleural effusion. No pneumothorax. Heart/Mediastinum: The right heart border is silhouetted out, but the heart is not felt to be enlarged. There is widening of the mediastinum suggesting adenopathy. Bones/joints: No acute osseous abnormality. XR/XR chest 1V portable [id number] IMPRESSION: 1. Large right pleural effusion, potentially malignant. 2. Suspect mediastinal adenopathy. 3. Superior retraction of the port catheter. CT Head: Radiologist's impression: [place] [address] CT Scan Report Signed Patient: Sia Coffman Unit #: [id number] : 1970 Age/Sex: 50 / F ADM Date: 11/01/20 Loc: ER Room/Bed: Attending Dr: Ordering Provider/Ordering MD: Bethanie Sena MD Date of Service: 11/01/20 Procedure(s): CT head wo con* [id number] Accession Number(s): [id number] Report Number: [id number] WS: [id number] CT HEAD TECHNIQUE: Noncontrast CT of the head obtained from the skullbase to the vertex. CLINICAL INFORMATION: confusion COMPARISON: None. DLP: 749.[address] scans at [facility] use at least one of these dose optimization techniques: automated exposure control; mA and/or kV adjustment per patient size (includes targeted exams where dose is matched to clinical indication); or iterative reconstruction. FINDINGS: No evidence of intracranial hemorrhage or mass effect. Ventricular system and basal cisterns are patent. No extra-axial fluid collections. No evidence of mass or mass effect. Normal beck-white differentiation. Mild mucosal thickening in the sphenoid sinuses. Mucosal thickening right mastoid tip. Left mastoid air cells are well aerated. CT Abd/Pel: Radiologist's impression: [address] [place] [address] CT Scan Report Signed Patient: Sia Coffman Unit #: [id number] : 1970 Age/Sex: 50 / F ADM Date: 11/01/20 Loc: ER Room/Bed: Attending Dr: Ordering Provider/Ordering MD: Bethanie Sena MD Date of Service: 11/01/20 Procedure(s): CT abdomen pelvis w con* [id number] Accession Number(s): [id number] Report Number: [id number] WS: [id number] CT ABDOMEN AND PELVIS WITH CONTRAST HISTORY: abd pain TECHNIQUE: Imaging performed of the abdomen and pelvis with IV contrast. Single phase imaging of the abdomen. Coronal and sagittal reformats are submitted. All CT scans at [facility] use at least one of these dose optimization techniques: automated exposure control; mA and/or kV adjustment per patient size (includes targeted exams where dose is matched to clinical indication); or iterative reconstruction. IV CONTRAST: Omnipaque 300; 95 mL IV. Oral contrast: No DLP: 222.5 mGy.cm COMPARISON: 10/14/2020 Lower thorax: Large RIGHT pleural effusion has progressed since 10/14/2020. Port-A-Cath present with tip in the distal SVC. Ovoid nodule at the RIGHT lung base abuts the pleura measuring up to 1.5 cm. Numerous pulmonary nodules of various sizes at the LEFT lung base. Nodules measure from a few millimeters to 10 mm. Heart is normal size. No hiatal hernia. Liver/biliary system: Innumerable metastatic lesions throughout the liver. These have significantly increased in size and number since 10/14/2011. The largest metastatic lesion in the RIGHT lobe measures 3.4 x 3.6 cm. No bile duct dilatation. Gallbladder: Normal. No gallstones or wall thickening. No pericholecystic fluid. Pancreas: Pancreas is poorly visualized. Spleen: Normal. Adrenal glands: Nodularity of the RIGHT adrenal gland. Suspicious for metastatic disease. LEFT adrenal gland is not well visualized. Right kidney: Normal. Left kidney: Normal. Aorta: Mild atherosclerosis with no aneurysm. Lymphadenopathy: No adenopathy identified. Small new lymph nodes to be obscured without fat visceral organs. Free fluid: There is a small amount of ascites within the abdomen and pelvis. GI tract: Fecal retention. No obstruction evident. Abdominal wall: Unremarkable abdominal wall. No hernia. Pelvis: Large cystic lobulated mass with septations and soft tissue component in the RIGHT adnexa measures 6.3 x 6.1 cm. Significantly increased in size since 10/14/2020. Positive on a recent PET/CT. Bones: Patient also has known metastatic osseous disease. This was better visualized on a recent PET/CT. There is a mixture of sclerotic and lytic foci. Significant destruction of the cortex involving the RIGHT ilium. Minimal concave deformity involving the superior endplate of L2 is stable. CT/CT abdomen pelvis w con* [id number] IMPRESSION: 1. Significant progression of the large RIGHT pleural effusion since 10/14/2020. 2. Increase in extent of the metastatic lesions at the lung bases, throughout the liver and in the RIGHT adnexa. 3. Diffuse metastatic osseous disease. 4. New small amount of ascites. 5. Suspect RIGHT adrenal metastasis. LEFT adrenal gland is not well visualized. Discharge Plan Discharge Patient Disposition: Admitted As Inpatient Clinical Impression: Pleural effusion Lung cancer Qualifiers: Laterality: unspecified laterality Lung location: unspecified part of lung Qualified Code(s): C34.90 - Malignant neoplasm of unspecified part of unspecified bronchus or lung Condition: Stable Coding Level of Care Code ED [employer] for [facility] Fwd Exam Comprehensive
--- NOTE | 2020-11-01 13:48 | CT_ITS ---
WS: [id number] CT ABDOMEN AND PELVIS WITH CONTRAST HISTORY: abd pain TECHNIQUE: Imaging performed of the abdomen and pelvis with IV contrast. Single phase imaging of the abdomen. Coronal and sagittal reformats are submitted. All CT scans at [facility] use at least one of these dose optimization techniques: automated exposure control; mA and/or kV adjustment per patient size (includes targeted exams where dose is matched to clinical indication); or iterativ e reconstruction. IV CONTRAST: Omnipaque 300; 95 mL IV. Oral contrast: No DLP: 222.5 mGy.cm COMPARISON: 10/14/2020 Lower thorax: Large RIGHT pleural effusion has progressed since 10/14/2020. Port-A-Cath present with t ip in the distal SVC. Ovoid nodule at the RIGHT lung base abuts the pleura measuring up to 1.5 cm. Nu merous pulmonary nodules of various sizes at the LEFT lung base. Nodules measure from a few millimete rs to 10 mm. Heart is normal size. No hiatal hernia. Liver/biliary system: Innumerable metastatic lesions throughout the liver. These have significantly i ncreased in size and number since 10/14/2011. The largest metastatic lesion in the RIGHT lobe measures 3.4 x 3.6 cm. No bile duct dilatation. Gallbladder: Normal. No gallstones or wall thickening. No pericholecystic fluid. Pancreas: Pancreas is poorly visualized. Spleen: Normal. Adrenal glands: Nodularity of the RIGHT adrenal gland. Suspicious for metastatic disease. LEFT adrena l gland is not well visualized. Right kidney: Normal. Left kidney: Normal. Aorta: Mild atherosclerosis with no aneurysm. Lymphadenopathy: No adenopathy identified. Small new lymph nodes to be obscured without fat separatin g visceral organs. Free fluid: There is a small amount of ascites within the abdomen and pelvis. GI tract: Fecal retention. No obstruction evident. Abdominal wall: Unremarkable abdominal wall. No hernia. Pelvis: Large cystic lobulated mass with septations and soft tissue component in the RIGHT adnexa vy sures 6.3 x 6.1 cm. Significantly increased in size since 10/14/2020. Positive on a recent PET/CT. Bones: Patient also has known metastatic osseous disease. This was better visualized on a recent PET/ CT. There is a mixture of sclerotic and lytic foci. Significant destruction of the cortex involving t he RIGHT ilium. Minimal concave deformity involving the superior endplate of L2 is stable. CT/CT abdomen pelvis w con* [id number] IMPRESSION: 1. Significant progression of the large RIGHT pleural effusion since 10/14/2020 . 2. Increase in extent of the metastatic lesions at the lung bases, throughout the liver and in the RIGHT adnexa. 3. Diffuse metastatic osseous disease. 4. New small amount of ascites. 5. Suspect RIGHT adrenal metastasis. LEFT adrenal gland is not well visualized .
--- NOTE | 2020-11-01 13:48 | CT_ITS ---
WS: [id number] CT HEAD TECHNIQUE: Noncontrast CT of the head obtained from the skullbase to the vertex. CLINICAL INFORMATION: confusion COMPARISON: None. DLP: 749.[address] scans at [facility] use at least one of these dose optimization techniques: automat ed exposure control; mA and/or kV adjustment per patient size (includes targeted exams where dose is matched to clinical indication); or iterative reconstruction. FINDINGS: No evidence of intracranial hemorrhage or mass effect. Ventricular system and basal cisterns are del rio nt. No extra-axial fluid collections. No evidence of mass or mass effect. Normal beck-white different iation. Mild mucosal thickening in the sphenoid sinuses. Mucosal thickening right mastoid tip. Left mastoid a ir cells are well aerated. CT/CT head wo con* [id number] IMPRESSION: 1. No evidence of intracranial hemorrhage or mass effect. 2. No acute intracranial findings.
[2020-11-01] MEDS: sodium chloride 0.9% 1,000 ML 999 ML IV (14:13)
[2020-11-01] MEDS: ondansetron 2 mg/ML SDV 2 mL 4 MG IVP (14:14)
[2020-11-01 14:19] LABS: ABG PCO2 43.9 mmHg (35-45); ABG PH Result 7.47 (7.35-7.45); Arterial Blood Gas Hematocrit 34.5 % (37-47); Base Excess ABG 7.6 mmol/L (-2.0-2.0); Blood Gas Allen Test Pos; Blood Gas Sample Site Radial, left; Blood Gas Sample Type Arterial; HCO3 ABG 32.1 mmol/L (22-26); Oxygen Device NC; PO2 ABG 63.1 mmHg (80.0-100.0)
[2020-11-01 14:23] LABS: Hematocrit 34.8 % (37.0-47.0); Hemoglobin 10.7 g/dL (11.5-15.3); Mean Corpuscular HGB Conc 30.7 g/dL (30.0-36.0); Mean Corpuscular Hemoglobin 28.8 pg (28.0-34.0); Mean Corpuscular Volume 93.5 fL (81-99); Mean Platelet Volume 9.9 fL (7.4-10.4); Platelet Count 73 10^3/cmm (130-400); Red Blood Count 3.72 10^6/uL (4.1-5.3); Red Cell Distribution Width 14.6 % (12.1-15.1); White Blood Count 23.9 10^3/uL (4.0-10.0)
[2020-11-01 14:42] LABS: Alanine Aminotransferase 24 U/L (0-33); Albumin Level 2.7 g/dL (3.5-5.2); Alkaline Phosphatase 167 IU/L (35-105); Anion Gap 15.2 (5-19); Aspartate Amino Transferase 80 U/L (0-32); Blood Urea Nitrogen 22 mg/dL (6-20); Carbon Dioxide 29 mmol/L (22-29); Chloride 98 mmol/L (98-107); Globulin 3.4 g/dL (1.3-4.6); Glomerular Filtration Rate 237.4 mL/min (90-130); Glucose 94 mg/dL (65-115); Osmolality Calculated 289 mOsm/kg (285-295); Potassium 4.2 mmol/L (3.5-5.1); Sodium 138 mmol/L (136-145); Total Bilirubin 0.5 mg/dL (0.15-1.2); Total Protein 6.1 g/dL (6.6-8.7)
[2020-11-01 14:50] LABS: Calcium 14.2 mg/dL (8.5-10.5)
[2020-11-01] MEDS: iohexol 300 mg/mL 100 mL Btl IV (15:06)
[2020-11-01 15:16] LABS: Lactate (Lactic Acid level) 3.4 mmol/L (0.5-2.2)
[2020-11-01 15:22] LABS: Slide Review Slide Review Perform
[2020-11-01 15:22] LABS: Specific Gravity, Urine 1.025 (1.005-1.030); Urine Appearance Clear (CLEAR); Urine Color Dark Yellow (Yellow); pH Urine 5 (5-7)
[2020-11-01 15:23] LABS: Add Urine Microscopic? YES; Bilirubin Urine Neg (Negative); Blood Urine 3+ (Negative); Glucose Urine UA Norm (Normal); Ketones Urine Negative (Negative); Leukocyte Esterase Urine Negative (Negative); Nitrate Urine Negative (Negative); Protein Urine Trace (Negative); Urobilinogen Urine 4 mg/dL (Negative)
[2020-11-01 15:24] LABS: Add Urine Culture? No; Bacteria Urine 1+ /hpf; RBC Urine 0-4 /hpf (0-2); WBC Urine 0-4 /hpf (0-5)
[2020-11-01] MEDS: piperacillin-tazobactam 3.375 GM in sodium chloride 0.9% (plus) 50 ML IV (15:24)
[2020-11-01] MEDS: vancomycin 1,000 MG in sodium chloride 0.9% 250 ML 250 MG IV (15:26)
[2020-11-01 15:36] LABS: Absolute Eosinophils 0.7 10^3/cmm (0.0-0.7); Absolute Segmented Neutrophil 12.7 10/cmm (1.6-7.1); Anisocytosis Trace; Band Neutrophils Absolute 2.9 10^3/cmm (0.0-1.2); Corrected White Blood Count 22.1 10^3/cmm (4.8-10.8); Eosinophils 3 %; Lymphocytes 23 %; Segmented Neutrophils 53 %; Total Cells Counted 100 (0-100)
[2020-11-01 15:37] LABS: Absolute Neutrophil 15.5 10^3/cmm (1.4-6.5); Platelet Estimate Decreased (Normal)
--- NOTE | 2020-11-01 17:56 | PM.HP ---
Providers/Chief Complaint Admitting Physician: Dariel Delgado MD Primary Care Provider: Ashley Jennings Chief Complaint: cannot eat/drink, groggy feeling History of Present Illness Sia Coffman is a 50 year old female with widely metastatic neuroendocrine lung malignancy presents with gradually worsening shortness of breath and right-sided chest pain. Patient was recently seen by oncology service and just had PET/CT performed in [place]. Report currently unknown. She was seen by radiation oncologist for palliative radiation. In emergency department she was found to have large right-sided pleural effusion which appears to be related to malignancy and likely the cause of patient's significant dyspnea. She has significant leukocytosis but denies fever chills and reports only coughing whenever she tries to drink thin liquids. Reports that for the last several days she was unable to eat or drink much. She is very dehydrated and she was also found to have severe hypercalcemia and therefore she is being admitted for close monitoring and treatment. During my evaluation in emergency department patient's is at bedside. She is very lethargic but able to answer questions. CODE STATUS was discussed with patient and her and patient wants to be a full code. Her reply was I want to be with my family as long as possible Patient reports that she was adopted and therefore she does not know her family history. She can recall that her sister had some lymph nodes related malignancy. Review of Systems Const: Denies: fever(s) or chills Eyes: Denies: change in vision ENMT: Reports: throat pain (Reports because she is very dry) and dry mouth; Denies: change in hearing Card: Reports: chest pain; Denies: edema or lightheadedness Resp: Reports: dyspnea; Denies: productive cough GI: Reports: abdominal pain and constipation; Denies: nausea, vomiting, dysphagia, diarrhea, hematochezia or melena : Denies: difficulty voiding Musc: Denies: joint pain or joint swelling Skin/Breast: Reports: erythema (Around recently placed Port-A-Cath but does not appear to be due to celluli); Denies: rash Neuro: Reports: numbness in extremities (Right upper extremity for the last several months and felt to be 2 cancer); Denies: headache(s) Psych: Denies: depression Endo: Denies: excessive sweating Dave/Lymph: Denies: easy bleeding All/Imm: Denies: throat swelling Medications/Allergies Home Medications Medication Instructions Recorded Confirmed Last Taken Type albuterol sulfate 90 mcg/actuation 2 puff INHALATION QID PRN 30 Days 09/27/20 11/01/20 10/19/20 Rx aerosol inhaler #18 g diazepam 5 mg/5 mL (1 mg/mL, 5 mL) See Rx Instructions .ROUTE 09/27/20 11/01/20 10/17/20 History oral solution .COMPLEX ml tiotropium 2.5 mcg-olodaterol 2.5 2 puff INHALATION DAILY 30 Days #4 09/27/20 11/01/20 10/29/20 Rx mcg/actuation mist for inhalation g ibuprofen [Children's Ibuprofen] 200 mg PO Q4H PRN 10/14/20 11/01/20 11/01/20 02:00 History fentanyl 1 patch TRANSDERMAL Q72H 10/19/20 11/01/20 10/31/20 History hydrocodone-acetaminophen 15 ml PO Q4H PRN 11/01/20 11/01/20 10/31/20 22:00 History 7 ml hydroxyzine HCl See Rx Instructions .ROUTE .COMPLEX 11/01/20 11/01/20 Unknown History pediatric multivitamin no.30 2 tab PO QAM 11/01/20 11/01/20 Unknown History [Gummies Children Multivitamin] polyethylene glycol 3350 [ClearLax] 17 g PO DAILY PRN 11/01/20 11/01/20 10/31/20 History Allergies Allergy/AdvReac Type Severity Reaction Status Date / Time aspirin Allergy ALGY-Fever Verified 11/01/20 14:14 PFSH Acute PFSH: Medical History Anxiety Surgical History Delivery by section H/O dilation and curettage H/O LEEP History of hysterectomy S/P lumpectomy, right breast Social History Smoking and tobacco status: current every day smoker cigarettes Years cigarettes smoked: 40 [ Other cigarette details: Hx of 1PPD x 40 Years ] Quit status (tobacco): considering quitting Second hand smoke exposure: Yes Smoking risk assessment/counseling performed?: Yes Alcohol intake: current Alcohol intake frequency: holidays/special occasions only Desire information about substance/drug rehabilitation?: No Counseling given: Yes Lives independently: Yes Household members: spouse Marital status: Current occupational status: disabled History of recent travel: No Current gender identity: Female Vitals/I&O/Wt Last Vital Signs Temp 98.2 F 11/01/20 12:25 Pulse 114 H 11/01/20 17:36 Resp 16 11/01/20 17:36 BP 131/88 11/01/20 17:36 Pulse Ox 95 11/01/20 17:36 11/01/20 11/01/20 11/01/20 06:59 14:59 22:59 Intake Total 1300 / 1300 Balance 1300 / 1300 Weight last 48 hrs Weight 36.741 kg Physical Exam Const: COMMON NORMALS: no acute distress and patient oriented x3 ORIENTATION/CONSCIOUSNESS: Yes lethargic OTHER: Patient is very cachectic HENMT: COMMON NORMALS: normocephalic and atraumatic HEAD & SCALP: normocephalic and atraumatic OTHER: Thrush noted mostly on the tongue Eye: COMMON NORMALS: EOMs intact bilaterally, conjunctivae normal and no scleral icterus CONJUNCTIVA: Yes conjunctivae normal Neck/C-Spine: COMMON NORMALS: no lymphadenopathy and no meningeal signs Lymph: LYMPHATIC: no lymphadenopathy noted Chest: OTHER: Patient has recently Port-A-Cath placed in the right chest with some surrounding dark-colored erythema but not suggestive of cellulitis. Resp: COMMON NORMALS: No use of accessory muscles and clear to auscultation bilaterally AUSCULTATION: clear to auscultation bilaterally Cardio: COMMON NORMALS: regular rate, regular rhythm and No murmurs present (Cardio) RATE: regular rate RHYTHM: regular rhythm OTHER: No lower extremity edema GI: COMMON NORMALS: Soft to palpation and non-tender PALPATION: Yes Soft to palpation RECTAL EXAM: deferred : COMMON NORMALS: Yes no CVA tenderness BLADDER/KIDNEY EXAM: Yes no CVA tenderness Back/Pelvis: COMMON NORMALS: no CVA tenderness and thoracic and lumbar spine normal to inspection Extremity: COMMON NORMALS: normal to inspection and capillary refill normal Neuro: COMMON NORMALS: patient oriented x3 and no focal motor deficits MENINGEAL SIGNS: Yes no meningeal signs Psych: COMMON NORMALS: mental status grossly normal, Normal thought process present and cooperative THOUGHT PROCESS: Normal thought process present Skin: COMMON NORMALS: no rashes or lesions noted (Except as mentioned.) GENERAL SKIN EXAM: no rashes or lesions noted Data : 11/01/20 14:00 11/01/20 14:00 Micro: Microbiology 11/01/20 15:24 Blood Culture - Preliminary Blood SPECIMEN COLLECTED 11/01/20 14:00 Blood Culture - Preliminary Blood SPECIMEN COLLECTED A&P Assessment and plan (1) Neuroendocrine carcinoma metastatic to multiple sites: Status: Acute (2) Pleural effusion: Appears to be secondary to malignancy. Underlying pneumonia/bleeding cannot be ruled out. Status: Acute (3) Hypercalcemia of malignancy: Dehydration could also play some role. Status: Acute (4) Dehydration: With decreased oral intake Status: Acute (5) Thrombocytopenia: Status: Acute (6) Normocytic anemia: Status: Acute (7) Nicotine addiction: Status: Acute (8) Anxiety: Status: Acute (9) Thrush, oral: Status: Acute Additional A&P Information PLAN: We will hydrate with LR and monitor urinary output. Pneumonia felt unlikely and since patient is hemodynamically stable I will not initiate antibiotics at this point. We will request thoracentesis in a.m. with fluid analysis. We will give patient 60 mg pamidronate and bowel regimen. Nystatin swish and swallow. We will request PT/OT and ST Overall patient appears to have poor prognosis. Unfortunately patient cannot make her appointment to see Dr. Alberts tomorrow and this will need to be rescheduled. I will check DIC panel as patient likely has some malignancy related DIC. No evidence of thrombosis at this point. Will avoid anticoagulation and use SCDs for prophylaxis at this point. Attestations Medical Necessity Statement*: Patient with severe hypercalcemia as well as metastatic malignancy related large pleural effusion requires close inpatient monitoring, treatment and evaluation. I expect patient will require more than 2 midnights. Time Spent in Patient Care: Greater than 35 minutes (>than 50% of time spent in counselling and/or direct pt care on unit). Coding Level of Care Code Acute Assembly Line Brazer for Chg Fwd Diagnoses Neuroendocrine carcinoma metastatic to multiple sites C7A.8; C7B.8 Pleural effusion J90 Hypercalcemia of malignancy E83.52 Dehydration E86.0 Thrombocytopenia D69.6 Normocytic anemia D64.9 Nicotine addiction F17.200 Anxiety F41.9 Thrush, oral B37.0
[2020-11-01 18:59] LABS: INR 1.29 (0.8-1.2)
[2020-11-01 19:00] LABS: Fibrinogen 481 mg/dL (174-498); Partial Thromboplastin Time 27.7 SECONDS (23.9-36.7)
[2020-11-01] MEDS: lactated ringers 1,000 ML 50 ML IV (19:07)
[2020-11-01 19:08] LABS: Lactate Dehydrogenase 2282 U/L (135-214)
[2020-11-01 19:11] LABS: D Dimer 4.54 ug/mIFEU (0-0.59)
--- NOTE | 2020-11-01 20:00 | PC.NURSE ---
Addendum entered by Michelle Parmar RN 11/02/20 01:59: Patient also has a healing Port a Cath site located to her upper right chest Original Note: Patient is noted to have healing scratches with scabs over them on her left butt cheek.
[2020-11-01] MEDS: nystatin 100,000 unit/mL UDC 5 mL 500000 UNIT PO (21:09)
[2020-11-01] MEDS: sennosides 8.6 mg Tablet 17.2 MG PO (21:14)
[2020-11-02] VITALS (14 sets, daily range): BP systolic 114–130; BP diastolic 74–90; PULSE 116–136; RESP 18–22; TEMP 36.5–37.3; O2SAT 89–94
--- NOTE | 2020-11-02 04:24 | NUR.SHIFT ---
Patient is wanting something to drink. Explained to patient that she does not have a diet order and the doctor was wanting to have an ultra sound guided Thoracentesis done today. Patient verbalized understanding and agreed to continue to just use the mouth swabs until later today. Patient attempted to sign the consent for the Thoracentesis but signed on the wrong line and states, I really see without my glasses can I not just tell you that I give you permission to do it? Explained to patient that would be fine. Consent placed in chart.
[2020-11-02 05:12] LABS: Hematocrit 32.1 % (37.0-47.0); Hemoglobin 9.6 g/dL (11.5-15.3); Mean Corpuscular HGB Conc 29.9 g/dL (30.0-36.0); Mean Corpuscular Hemoglobin 28.7 pg (28.0-34.0); Mean Corpuscular Volume 96.1 fL (81-99); Platelet Count 67 10^3/cmm (130-400); Red Blood Count 3.34 10^6/uL (4.1-5.3); Red Cell Distribution Width 14.7 % (12.1-15.1); White Blood Count 18.8 10^3/uL (4.0-10.0)
[2020-11-02 05:32] LABS: Slide Review Slide Review Perform
[2020-11-02 05:35] LABS: Procalcitonin 1.07 ng/mL (0-0.5); Thyroid Stimulating Hormone 0.55 uIU/mL (0.27-4.20)
[2020-11-02 05:47] LABS: Alanine Aminotransferase 21 U/L (0-33); Albumin Level 2.9 g/dL (3.5-5.2); Alkaline Phosphatase 159 IU/L (35-105); Anion Gap 15.2 (5-19); Aspartate Amino Transferase 79 U/L (0-32); Blood Urea Nitrogen 21 mg/dL (6-20); Calcium 13.1 mg/dL (8.5-10.5); Carbon Dioxide 29 mmol/L (22-29); Chloride 100 mmol/L (98-107); Globulin 2.7 g/dL (1.3-4.6); Glomerular Filtration Rate 237.4 mL/min (90-130); Glucose 73 mg/dL (65-115); Magnesium 1.7 mg/dL (1.7-2.3); Osmolality Calculated 292 mOsm/kg (285-295); Phosphorus 3.4 mg/dL (2.5-4.5); Potassium 4.2 mmol/L (3.5-5.1); Sodium 140 mmol/L (136-145); Total Bilirubin 0.5 mg/dL (0.15-1.2); Total Protein 5.6 g/dL (6.6-8.7)
--- NOTE | 2020-11-02 06:47 | PC.NURSE ---
Report to Teresita Leigh RN at this time. End of shift report. Patient rested comfortably most of the night. Patient states that she feels to weak to get up to the chair this morning.
--- NOTE | 2020-11-02 07:25 | PC.NURSE ---
Notified nurse of high pulse 116 Notified nurse of low oxygen of 89
--- NOTE | 2020-11-02 08:05 | US_ITS ---
WS: [id number] ULTRASOUND-GUIDED THORACENTESIS CLINICAL INFORMATION: right sided pleural effusion COMPARISON: None. PROCEDURE: Informed consent: The risks, benefits, and alternatives of the procedure were discussed with the troy ent. Verbal and written consent was obtained. Timeout: A timeout was performed to confirm the correct patient, procedure, and site. Site: Right Preparation: A suitable skin site was identified. The patient was prepped and draped in usual sterile fashion. Lidocaine 1% was used for local anesthesia. Catheter: 4 [place]raini One-Step catheter. Fluid Volume: 1100 ml Color: Dark red Discarded safely. Complications: None. Patient disposition: Discharged from the department in stable condition. / thoracentesis [id number] IMPRESSION: Uncomplicated ultrasound-guided thoracentesis with removal of 1100 cc fluid.
[2020-11-02] MEDS: albuterol 8 gm MDI 2 PUFF INHALATION ×4 (08:24→21:32)
--- NOTE | 2020-11-02 09:50 | P.PN_ITS ---
Subjective Subjective: Interval history: Concern about potential overlying skin changes of a right upper chest port that was placed on 10/19/2020, chest x-ray postprocedure showed: Right central venous catheter tip in the proximal SVC. No visualized pneumothorax. Right pleural effusion and pleural thickening in the right lung apex. Right hilar and subcarinal lymphadenopathy. Mild interstitial in filtrate/edema in the right greater than left lungs. XR/XR chest 1V portable [id number] IMPRESSION: Right central venous catheter with tip in the proximal SVC. No pneumothorax. I was contacted by the hospitalist services patient was admitted to medical service for broad spectrum of symptomatology and there was skin changes overlying a port recently placed and surgery was contacted for evaluating to rule out potential infection Vitals/I&O/Wt Last Vital Signs Temp 98.4 F 11/02/20 07:25 Pulse 123 H 11/02/20 08:29 Resp 22 H 11/02/20 08:27 BP 130/90 11/02/20 07:25 Pulse Ox 93 11/02/20 08:27 11/01/20 11/02/20 11/02/20 22:59 06:59 14:59 Intake Total 1415 / 1753 246.3436 / 2194.9997 Balance 1415 / 1907 923.3906 / 2194.9997 Weight last 48 hrs Weight 81 lb Physical Exam Narrative: EXAM NARRATIVE: Patient is conscious alert oriented X3 BMI 16.4 Head and neck examination PERRLA no masses no cervical lymphadenopathy no jaundi ce Cardiac examination audible S1-S2 no murmurs no gallops no arrhythmias Chest air entry diminished on the right side in comparison to the left Right upper chest PowerPort in place without complications and mild bruise at the site of the port but there is no evidence of surgical site infection. Physical examination was done in the presence of female diesel pile hammer operator nursing staff Teresita Abdomen nontender nondistended soft no organomegaly guarding or rigidity/no signs of peritonitis Extremities no cyanosis no clubbing no edema Data : 11/03/20 04:44 11/03/20 04:44 Micro: Microbiology 11/01/20 15:24 Blood Culture - Preliminary Blood SPECIMEN COLLECTED 11/01/20 14:00 Blood Culture - Preliminary Blood SPECIMEN COLLECTED A&P Assessment and plan (1) Port-A-Cath in place: After history taking physical examination and reviewing the chart and images of the chest x-ray which showed Lungs: Interval volume loss in the right lung with some residual aeration right upper lobe. The latter is associated with potential interstitial edema or lymphangitic spread of malignancy. An underlying right lung mass or hilar mass is not excluded on this exam. Small nonspecific nodules in the left upper lobe. Pulmonary metastatic disease is in the differential diagnosis. Pleural spaces: Large right pleural effusion. No left pleural effusion. No pneumothorax. Heart/Mediastinum: The right heart border is silhouetted out, but the heart is not felt to be enlarged. There is widening of the mediastinum suggesting adenopathy. Bones/joints: No acute osseous abnormality. XR/XR chest 1V portable [id number] IMPRESSION: 1. Large right pleural effusion, potentially malignant. 2. Suspect mediastinal adenopathy. 3. Superior retraction of the port catheter. From surgical standpoint of view there is no evidence of infection at the site of the port and can be flushed and used per protocol. Likely large amount of right pleural effusion is causing pressure on the catheter and patient would benefit from thoracocentesis and that would help with using the port after. If there is a concern about the port functioning, portogram can be obtained per interventional radiology where IV contrast can be injected in the port to see the flow. Please call for questions or concerns Status: Acute Attestations Medical Necessity Statement*: Continue hospitalization per medical care under hospitalist service Time Spent in Patient Care: (>than 50% of time spent in counselling and/or direct pt care on unit) . Coding Level of Care Code Acute Psychology Intern for Gee Richmond Diagnoses Port-A-Cath in place Z95.828
--- NOTE | 2020-11-02 12:45 | PC.OT ---
OT EVALUATION ATTEMPTED. PATIENT HR: 126 AND IS SCHEDULED FOR THORACENTESIS THIS AFTERNOON. HOLD UNTIL TOMORROW.
[2020-11-02] MEDS: morphine 4 mg/mL SDV 1 mL 2 MG IVP (13:34)
--- NOTE | 2020-11-02 13:50 | XR_ITS ---
WS: [id number] CHEST XRAY TECHNIQUE: Portable chest. CLINICAL INFORMATION: post thoracentesis COMPARISON: November 01, 2020 FINDINGS: Right central venous catheter with tip in the proximal SVC. Right pleural effusion improved post thoracentesis. Improved aeration of the right lung. No pneumothorax. No other changes from prev ious. Masslike mediastinal lymphadenopathy unchanged. Volume loss right lung. XR/XR chest 1V [id number] IMPRESSION: Improved right pleural effusion post thoracentesis. No pneumothorax.
[2020-11-02 14:23] LABS: Appearance, Pleural Fluid CLOUDY (CLEAR); Color, Pleural Fluid Amber (Pale Yellow)
[2020-11-02 14:30] LABS: Mononuclear %, Pleural Fluid 74 %; Mononuclear, Pleural Fluid # 0.379 10^3/uL; Polynuclear Cells, Pleural # 0.137 10^3/uL; Polynuclear Cells, Pleural % 27 %
[2020-11-02 14:31] LABS: PATH Referral YES
[2020-11-02 14:33] LABS: PATH Referal YES
[2020-11-02 14:42] LABS: Right Pleural Fluid Right Lung
[2020-11-02 14:50] LABS: LDH Pleural Fluid 764 U/L; Pleural Fluid Albumin 1.8 g/dL
--- NOTE | 2020-11-02 15:04 | PM.PN ---
Subjective Subjective: Interval history: Patient or short of breath this morning. Her oxygen requirement worsened and she now requires 6 L to saturate in the low 90s. She reports that she wants to go home. She had ultrasound performed which appears exudative related to cancer but otherwise does not appear to be infected. Patient was seen by Dr. Pickett earlier today and periportal skin change did not appear to be related to infection. Vitals/I&O/Wt Last Vital Signs Temp 98.7 F 11/02/20 11:33 Pulse 125 H 11/02/20 14:33 Resp 20 H 11/02/20 14:31 BP 114/77 11/02/20 11:33 Pulse Ox 90 11/02/20 14:31 11/02/20 11/02/20 11/02/20 06:59 14:59 22:59 Intake Total 779.9997 / 2194.9997 Balance 779.9997 / 2194.9997 Weight last 48 hrs Weight 36.741 kg Physical Exam Narrative: EXAM NARRATIVE: Her lungs show minimal left basilar Rales and decreased air movement on the right. Heart is regular. Lower extremities show no edema. Data : 11/02/20 05:03 11/02/20 05:03 Micro: Microbiology 11/01/20 15:24 Blood Culture - Preliminary Blood SPECIMEN COLLECTED 11/01/20 14:00 Blood Culture - Preliminary Blood SPECIMEN COLLECTED A&P Assessment and plan (1) Neuroendocrine carcinoma metastatic to multiple sites: Status: Acute (2) Pleural effusion: Appears to be secondary to malignancy. Underlying pneumonia/bleeding cannot be ruled out. Status: Acute (3) Hypercalcemia of malignancy: Dehydration could also play some role. Status: Acute (4) Dehydration: With decreased oral intake Status: Acute (5) Thrombocytopenia: Status: Acute (6) Normocytic anemia: Status: Acute (7) Nicotine addiction: Status: Acute (8) Anxiety: Status: Acute (9) Thrush, oral: Status: Acute (10) Acute respiratory failure with hypoxia: Present on admission. Status: Acute Additional A&P Information PLAN: Continue current monitoring and treatment. Awaiting culture results. White blood cell only slightly improved and patient continues to have thrombocytopenia. Infectious process cannot be completely ruled out therefore I will go ahead and start patient on ceftriaxone. Titrate oxygen down and if continues to improve we will likely be able to dismiss patient home may be tomorrow with outpatient follow-up with oncology. Attestations Medical Necessity Statement*: Patient with widely metastatic malignancy now with acute hypoxic respiratory failure and elevated blood blood cell count requires close inpatient monitoring and treatment till deemed safe for discharge. Time Spent in Patient Care: 16 - 35 minutes Coding Level of Care Code Acute Refining Supervisor for Chg Fwd Diagnoses Neuroendocrine carcinoma metastatic to multiple sites C7A.8; C7B.8 Pleural effusion J90 Hypercalcemia of malignancy E83.52 Dehydration E86.0 Thrombocytopenia D69.6 Normocytic anemia D64.9 Nicotine addiction F17.200 Anxiety F41.9 Thrush, oral B37.0 Acute respiratory failure with hypoxia J96.01
[2020-11-02] MEDS: metoprolol tartrate 1 mg/1 mL SDV 5 mL 5 MG IV ×2 (17:51→22:30)
[2020-11-02] MEDS: cefTRIAXone 1,000 MG in sodium chloride 0.9% (plus) 50 ML 100 MG IV (18:01)
[2020-11-02] MEDS: lactated ringers 1,000 ML 50 ML IV (18:02)
--- NOTE | 2020-11-02 18:24 | PC.NURSE ---
Notified nurse of refusal, patient will not wake up enough to eat.
--- NOTE | 2020-11-02 22:32 | PC.NURSE ---
Patient's heart rate is 132 Metoprolol given per orders at this time. Patient is alert and able to speak clearly to this sheet writer.
--- NOTE | 2020-11-02 23:47 | PC.NURSE ---
Patient has been very sleepy. The day shift nurse states that patient has been really sleepy since the procedure today. Patient was given Morphine today as well. Patient's Fentanyl patch was removed at this time.
[2020-11-03] VITALS (8 sets, daily range): BP systolic 100–124; BP diastolic 67–80; PULSE 70–122; RESP 18–24; TEMP 36.3–37.1; O2SAT 92–95
[2020-11-03] MEDS: morphine 4 mg/mL SDV 1 mL 2 MG IVP (02:10)
--- NOTE | 2020-11-03 02:11 | PC.NURSE ---
Patient is more awake. Patient pulled out her IV accidentally and is requesting pain medication for her back. New IV started in patient's right AC. Morphine 2 mg given.
[2020-11-03] MEDS: metoprolol tartrate 1 mg/1 mL SDV 5 mL 5 MG IV (03:40)
[2020-11-03 05:16] LABS: Basophils # 0.1 10^3/uL (0.0-0.1); Basophils % 0.3 %; Eosinophils # 0.3 10^3/uL (0.0-0.8); Eosinophils % 1.4 %; Hematocrit 30.7 % (37.0-47.0); Hemoglobin 9.3 g/dL (11.5-15.3); Lymphocytes % 21.5 %; Mean Corpuscular HGB Conc 30.3 g/dL (30.0-36.0); Mean Corpuscular Hemoglobin 28.3 pg (28.0-34.0); Mean Corpuscular Volume 93.3 fL (81-99); Mean Platelet Volume 10.6 fL (7.4-10.4); Monocytes # 1.1 10^3/uL (0.2-0.9); Monocytes % 5.9 %; Neutrophils # 10.02 10^3/uL (1.8-7.7); Neutrophils % 53.8 %; Nucleated Red Blood Cells # 3.1 /100WBC; Nucleated Red Blood Cells % 16.3 %; Platelet Count 59 10^3/cmm (130-400); Red Blood Count 3.29 10^6/uL (4.1-5.3); White Blood Count 18.7 10^3/uL (4.0-10.0)
[2020-11-03 05:31] LABS: Slide Review Slide Review Perform
[2020-11-03 05:39] LABS: Alanine Aminotransferase 59 U/L (0-33); Albumin Level 2.6 g/dL (3.5-5.2); Alkaline Phosphatase 138 IU/L (35-105); Anion Gap 18.1 (5-19); Aspartate Amino Transferase 227 U/L (0-32); Blood Urea Nitrogen 28 mg/dL (6-20); Carbon Dioxide 25 mmol/L (22-29); Chloride 102 mmol/L (98-107); Globulin 2.6 g/dL (1.3-4.6); Glomerular Filtration Rate 131.7 mL/min (90-130); Glucose 98 mg/dL (65-115); Magnesium 1.8 mg/dL (1.7-2.3); Osmolality Calculated 297 mOsm/kg (285-295); Phosphorus 2.5 mg/dL (2.5-4.5); Potassium 4.1 mmol/L (3.5-5.1); Sodium 141 mmol/L (136-145); Total Bilirubin 0.5 mg/dL (0.15-1.2); Total Protein 5.2 g/dL (6.6-8.7)
[2020-11-03] MEDS: fentaNYL 50 mcg Patch 1 PATCH TRANSDERMA (08:05)
[2020-11-03] MEDS: albuterol 8 gm MDI 2 PUFF INHALATION ×2 (08:18→20:00)
--- NOTE | 2020-11-03 08:22 | CT_ITS ---
WS: [id number] CTA OF THE CHEST WITH PULMONARY EMBOLISM PROTOCOL TECHNIQUE: High-resolution contrast enhanced CTA of the chest with coronal and sagittal reformatted i mages with pulmonary embolism protocol. MIP images are also reviewed. CLINICAL INFORMATION: Acute hypoxic respiratory failure in patient with metastatic COMPARISON: PET/CT to January 11, 2021 CTA September 03, 2020 DLP: 346.[address] scans at [facility] use at least one of these dose optimization techniques: automat ed exposure control; mA and/or kV adjustment per patient size (includes targeted exams where dose is matched to clinical indication); or iterative reconstruction. FINDINGS: Proximal main pulmonary arteries are normal. Mild narrowing of the right proximal main pulmonary montez ry due to mediastinal neoplasm. Segmental and subsegmental pulmonary arteries are patent. No filling defects to suggest pulmonary embolus.Tapering with compression right upper lobe segmental pulmonary a rtery due to the large mediastinal and right upper lobe infiltrating neoplasm with abrupt cut off. Ne oplasm involves the pericardium with pericardial thickening. Normal caliber thoracic aorta. Moderate right and small left pleural effusions. Compressive atelectas is in the lung bases. Interstitial thickening throughout the right lung suspicious for lymphangitic s pread of disease. Patchy infiltrates throughout the right lung. Additional noncalcified metastatic pu lmonary nodules throughout the left lung more prominent left upper lobe. Marked confluence anterior mediastinal and peribronchial lymphadenopathy eccentric to the right with right upper lobe mass. This is significantly progressed since September 03, 2020 and similar in appear ance compared to October 28, 2020. Right axillary lymphadenopathy. Diffuse metastatic disease partia lly visualized throughout the liver similar in appearance the recent PET/CT. Marked hepatomegaly. Sub pleural soft tissue nodularity in the right lower lobe suspicious for metastatic disease. Metastatic osseous disease. CT/CT angio chest PE protcl [id number] IMPRESSION: 1. No evidence of pulmonary embolus. 2. Soft tissue mediastinal neoplasm with mild narrowing of the right main pulm onary artery which remains patent. 3. Tapering with compression right upper lobe segmental pulmonary artery due t o mediastinal and right upper lobe infiltrating neoplasm with abrupt cut off. 4. Neoplasm appears to involve the pericardium with pericardial thickening. 5. Marked confluent mediastinal neoplasm with confluent lymphadenopathy has si gnificantly progressed since August 2020 and similar in appearance to recent PET/CT. 6. Moderate right and small left pleural effusions with compressive atelectasi s. 7. Patchy infiltrates with circumferential pleural thickening throughout the r ight lung. 8. Interstitial thickening right lung suspicious for lymphangitic spread of di sease. 9. Hepatomegaly with diffuse hepatic metastasis. 10. Osseous metastasis unchanged since the PET/CT.
--- NOTE | 2020-11-03 09:05 | PC.CHAP ---
Pastoral Care Encounter/Spiritual Assessment Type of Contact [] Declined encapsulator visit [] Patient/Family/Request visit [] Outpatient visit [] Follow-up visit [] Physician referral [] Code/Alert [x] Routine visit [] Staff referral [] Actively dying [] Patient sleeping [] Family support [] [] Out of room [] Palliative care [] [] Receiving care in room [] Pre-surgical visit [] Trauma [] Long length of stay [] ICU visit [] Other: Relational/Emotional Strength [] Patient feels connected with others/family/visitors/staff [] Distress [] Loneliness/isolation [] Abandonment Spirituality of Patient [x] Person of [place] [] Attends Hindu of their [place] [] Believes in Prayer [] Reads Bible or Presybeterian materials [] There are Spiritual issues to be addressed Investigative Reporter Interventions [x] Prayer [x Active listening [] Non-anxious presence [] Spiritual/emotional support [] Crisis/trauma care [] Spiritual counseling [] Bereavement support [] Provided bereavement packet [] Provided Bible/devotional materials [] Provided toy/stuffed animal, coloring book to patient or family member [] Provided Communion [] Anointing/[place] [] Salvation [x] Completed spiritual assessment [] Other: Impact on Illness or Injury [] Angry [] Fearful [] Anxious [] Often cries [] Exhaustion [] Unable to work [] Unable to attend lutheran [] Unable to walk/stand [] Unable to read [] Unable to drive [] Unable to eat/drink [] Unable to sleep [] Unable to be with family [] Patient intubated [] Other: Summary patient feeling better today but still having a hard time Time spent with patient 10 min
--- NOTE | 2020-11-03 11:01 | PM.PN ---
Subjective Subjective: Interval history: Patient's Port-A-Cath is not functioning. This morning patient reports shortness of breath and continues to have right-sided chest pain. Her oxygen requirement worsened and she now requires 6 L to saturate in the low 90s. Vitals/I&O/Wt Last Vital Signs Temp 98.6 F 11/03/20 08:00 Pulse 114 H 11/03/20 08:21 Resp 22 H 11/03/20 08:21 BP 100/67 11/03/20 08:00 Pulse Ox 94 11/03/20 08:21 11/02/20 11/03/20 11/03/20 22:59 06:59 14:59 Intake Total 860 / 860 520.833 / 1380.833 240 / 240 Balance 860 / 860 520.833 / 1380.833 240 / 240 Weight last 48 hrs Weight 36.741 kg Physical Exam Narrative: EXAM NARRATIVE: Her lungs show minimal left basilar Rales. Heart is regular. Lower extremities show no edema. Abdomen is tender throughout to palpation. Data : 11/03/20 04:44 11/03/20 04:44 Micro: Microbiology 11/01/20 15:24 Blood Culture - Preliminary Blood NEGATIVE TO DATE 11/01/20 14:00 Blood Culture - Preliminary Blood NEGATIVE TO DATE A&P Assessment and plan (1) Neuroendocrine carcinoma metastatic to multiple sites: Status: Acute (2) Pleural effusion: Appears to be secondary to malignancy. Underlying pneumonia/bleeding cannot be ruled out. Status: Acute (3) Hypercalcemia of malignancy: Dehydration could also play some role. Status: Acute (4) Dehydration: With decreased oral intake Status: Acute (5) Thrombocytopenia: Status: Acute (6) Normocytic anemia: Status: Acute (7) Nicotine addiction: Status: Acute (8) Anxiety: Status: Acute (9) Thrush, oral: Status: Acute (10) Acute respiratory failure with hypoxia: Present on admission. Status: Acute Additional A&P Information PLAN: Will obtain CT of chest to evaluate for possible PE. I will stop IV fluids as patient could be reaccumulating. We will add Levaquin as patient's white blood cell count did not improve much. Discussed case with Dr. Alberts and patient will receive palliative chemotherapy. Dr. Alberts does not think radiation therapy will help but because there is kind of malignancy is very responsive to chemotherapy we will proceed with palliative treatment inpatient. Discussed with patient's this morning regarding hospice and this definitely should be considered down the road. Attestations Medical Necessity Statement*: Patient with metastatic cancer requires close inpatient monitoring and treatment until deemed safe for discharge. Coding Level of Care Code Acute Crotch Piece Baster for Chg Fwd Diagnoses Neuroendocrine carcinoma metastatic to multiple sites C7A.8; C7B.8 Pleural effusion J90 Hypercalcemia of malignancy E83.52 Dehydration E86.0 Thrombocytopenia D69.6 Normocytic anemia D64.9 Nicotine addiction F17.200 Anxiety F41.9 Thrush, oral B37.0 Acute respiratory failure with hypoxia J96.01
[2020-11-03] MEDS: iohexol 350 mg/mL 100 mL Btl IV (11:04)
[2020-11-03] MEDS: ibuprofen Oral Susp 100 mg/5mL UDC 200 MG PO (12:33)
[2020-11-03] MEDS: levofloxacin-dextrose 5 % 750 MG/150 ML PREMIX 100 MG IV (12:35)
[2020-11-03] MEDS: ketorolac 30 mg/mL INJ 15 MG IVP (14:16)
--- NOTE | 2020-11-03 14:19 | P.MISC_ITS ---
Miscellaneous Note Purpose of Documentation: To discuss about role of palliative chemotherapy versus hospice care Note: Mr. Barb Coffman, is a 50-year-old female who was recently diagnosed with poorly differentiated carcinoma with neuroendocrine differentiation per r ight upper lobe mass transbronchial biopsy and CT PET scan done on October shows large right upper lobe pulmonary mass directly invades the mediastinum with extensive involvement as well as right lower neck and right thyroid lobe. A moderate right pleural effusion is present. Multiple ipsilateral and contralateral pulmonary and pleural implant are present consistent with metastatic involvement. Hepatomegaly with extensive liver involvement, likely right adrenal gland involvement and large right adnexal mass concerning for synchronous malignancy. Extensive skeleton metastatic invol vement including skull base and proximal appendicular skeleton Case was discussed with her , clinically appears, considering patient's poor performance status and with metastatic disease and concerned about synchronous ovarian malignancy, and her overall condition, her prognosis is guarded. Case was also discussed with pathologist, his impression was this poorly differentiated carcinoma with neuroendocrine differentiation may behave like small cell lung cancer which is usually chemosensitive, again concern is her overall performance status, chemotherapy related side effects. Patient's understand the situation very well but would consider 1 cycle of chemotherapy, if patient tolerate well and if there is response, then he would continue otherwise consider hospice., We will review her labs and then consider 1 cycle of chemotherapy with carboplatin AUC 5 on day 1 and etoposide 100 mg/m? daily for 3 days and if tolerated repeat every 21 days. All the side effects possible benefits associated with treatment including but not limited to, bone marrow suppression, nausea vomiting, hair loss, tumor lysis, and considering patient's overall performance status life-threatening complication including , was discussed, further teaching will be done by chemotherapy nurse. We will also consider starting her on allopurinol 300 mg p.o. daily. Advised to maintain hydration and monitor electrolytes and for tumor lysis. Patient and patient's expressed full understanding and agreed with the plan.
--- NOTE | 2020-11-03 14:45 | PC.NURSE ---
Received phone call from Jacey SIDHU from [facility]. Jacey reported to this nurse that Dr. Alberts had reviewed the patient's chart and decided that he did not want to start chemo treatments today due to her lab results. He wants patient to have a unit of platelets transfused and to have her labs redrawn in the morning. Dr. Alberts wants to make sure the hospitalist is aware. Dr. Delgado notified via voalte phone call that patient needs a unit of platelets. Dr. Delgado stated he would place orders in chart.
[2020-11-03] MEDS: cefTRIAXone 1,000 MG in sodium chloride 0.9% (plus) 50 ML 100 MG IV (17:38)
--- NOTE | 2020-11-03 18:33 | PC.NURSE ---
Marianna from lab called and told expert medical writer that platelets for patient could not be delivered. [facility] in [place] had already sent out a truck for a delivery to out facility earlier this evening for and will be unable to send another delivery due to the weather. [facility] also reports that they do not have stock to send the platelets at this time but they should have more available at 0900 and will send them at that time. Dr. Delgado notified.
[2020-11-04] VITALS (13 sets, daily range): BP systolic 104–122; BP diastolic 64–78; PULSE 92–120; RESP 16–20; TEMP 36.4–37.1; O2SAT 91–98
[2020-11-04 05:20] LABS: Basophils # 0.1 10^3/uL (0.0-0.1); Basophils % 0.3 %; Eosinophils # 0.2 10^3/uL (0.0-0.8); Eosinophils % 1.3 %; Hemoglobin 9.4 g/dL (11.5-15.3); Lymphocytes # 3.9 10^3/uL (0.8-4.8); Lymphocytes % 20.6 %; Mean Corpuscular HGB Conc 30.3 g/dL (30.0-36.0); Mean Corpuscular Volume 92.3 fL (81-99); Mean Platelet Volume 11.1 fL (7.4-10.4); Monocytes # 1.2 10^3/uL (0.2-0.9); Monocytes % 6.2 %; Neutrophils # 10.45 10^3/uL (1.8-7.7); Nucleated Red Blood Cells # 2.1 /100WBC; Nucleated Red Blood Cells % 11.3 %; Platelet Count 55 10^3/cmm (130-400); Red Blood Count 3.36 10^6/uL (4.1-5.3); Red Cell Distribution Width 15.2 % (12.1-15.1)
[2020-11-04 06:13] LABS: Slide Review Slide Review Perform
[2020-11-04 06:21] LABS: Alanine Aminotransferase 71 U/L (0-33); Albumin Level 2.5 g/dL (3.5-5.2); Alkaline Phosphatase 142 IU/L (35-105); Anion Gap 16.1 (5-19); Aspartate Amino Transferase 202 U/L (0-32); Blood Urea Nitrogen 22 mg/dL (6-20); Calcium 11.1 mg/dL (8.5-10.5); Carbon Dioxide 27 mmol/L (22-29); Chloride 99 mmol/L (98-107); Globulin 2.9 g/dL (1.3-4.6); Glomerular Filtration Rate 237.4 mL/min (90-130); Glucose 96 mg/dL (65-115); Magnesium 1.8 mg/dL (1.7-2.3); Osmolality Calculated 289 mOsm/kg (285-295); Phosphorus 1.7 mg/dL (2.5-4.5); Potassium 4.1 mmol/L (3.5-5.1); Sodium 138 mmol/L (136-145); Total Bilirubin 0.6 mg/dL (0.15-1.2); Total Protein 5.4 g/dL (6.6-8.7)
[2020-11-04] MEDS: albuterol 8 gm MDI 2 PUFF INHALATION (07:26)
[2020-11-04] MEDS: pantoprazole DR 40 mg Tablet PO (08:13)
[2020-11-04] MEDS: nystatin 100,000 unit/mL UDC 5 mL 500000 UNIT PO ×4 (08:13→21:11)
--- NOTE | 2020-11-04 08:35 | PC.NURSE ---
confirmed with Dr. Vega beckford to use port but to notify physician if any complications including swelling or pain are noted.
[2020-11-04] MEDS: FUROsemide 10 mg/mL SDV 2mL 20 MG IVP (08:47)
[2020-11-04] MEDS: potassium chloride premix 100 ML 50 MEQ IV (08:47)
--- NOTE | 2020-11-04 09:09 | PM.PN ---
Subjective Subjective: Interval history: Patient reports that she continues to be short of breath. She is saturating 96% on 7 L by oxygen mask. Patient feels that the oxygen mask is better than nasal cannula. She has no evidence of PE on CT scan but appears to have moderate pleural effusions bilaterally. Patient continues to have significant leukocytosis. She was not given chemotherapy yesterday because of low platelets. She was ordered 2 pack of platelets yesterday but unfortunately due to weather condition it will only be delivered later today. She reports that her right arm is more swollen and tender. She has IV line in cubital area on the right. Her Port-A-Cath is infusing okay but cannot draw blood from it. Dr. Chaudhari was okay for Port-A-Cath to be used for infusion. Vitals/I&O/Wt Last Vital Signs Temp 98.7 F 11/04/20 08:00 Pulse 106 H 11/04/20 08:02 Resp 18 11/04/20 08:02 BP 122/74 11/04/20 08:00 Pulse Ox 96 11/04/20 08:02 11/03/20 11/04/20 11/04/20 22:59 06:59 14:59 Intake Total 170 / 1159.167 250 / 1409.167 Balance 170 / 1159.167 250 / 1409.167 Physical Exam Narrative: EXAM NARRATIVE: Her lungs show minimal left basilar Rales and overall decreased air movement especially at bases.. Heart is regular. Lower extremities show no edema. Abdomen is tender throughout to palpation. Data : 11/04/20 05:01 11/04/20 05:01 A&P Assessment and plan (1) Neuroendocrine carcinoma metastatic to multiple sites: Status: Acute (2) Pleural effusion: Appears to be secondary to malignancy. Underlying pneumonia/bleeding cannot be ruled out. Status: Acute (3) Hypercalcemia of malignancy: Dehydration could also play some role. Status: Acute (4) Dehydration: With decreased oral intake Status: Acute (5) Thrombocytopenia: Status: Acute (6) Normocytic anemia: Status: Acute (7) Nicotine addiction: Status: Acute (8) Anxiety: Status: Acute (9) Thrush, oral: Status: Acute (10) Acute respiratory failure with hypoxia: Present on admission. Status: Acute Additional A&P Information PLAN: Awaiting platelet transfusions later today. We will switch ceftriaxone to vancomycin and continue Levaquin as underlying pneumonia cannot be completely ruled out. Once palliative chemotherapy is given patient's condition should nicely improve for at least short-term. We will give patient 1 dose of Lasix and potassium as We stop IV fluids and give 1 dose of Lasix and potassium as she shows worsening pleural effusions. We will remove patient's IV line from the right side. I think patient's right arm swelling is secondary to malignancy obstructing venous outflow. She was started yesterday on Toradol due to severe pain she had. Attestations Medical Necessity Statement*: Patient with metastatic malignancy and severe pain requires close inpatient monitoring and treatment. Time Spent in Patient Care: Greater than 35 minutes Coding Level of Care Code Acute Lift Team Technician for g Fwd Diagnoses Neuroendocrine carcinoma metastatic to multiple sites C7A.8; C7B.8 Pleural effusion J90 Hypercalcemia of malignancy E83.52 Dehydration E86.0 Thrombocytopenia D69.6 Normocytic anemia D64.9 Nicotine addiction F17.200 Anxiety F41.9 Thrush, oral B37.0 Acute respiratory failure with hypoxia J96.01
--- NOTE | 2020-11-04 10:16 | PC.NURSE ---
This nurse able to withdraw blood from port for lab drawl, flushed easily and reconnected to potassium infusion per MAR.
[2020-11-04] MEDS: metoprolol tartrate 1 mg/1 mL SDV 5 mL 5 MG IV (10:50)
--- NOTE | 2020-11-04 10:52 | PC.NURSE ---
PRN metoprolol given per doctors orders for heart rate of 126, see MAR for further details.
[2020-11-04] MEDS: ondansetron 2 mg/ML SDV 2 mL 8 MG IVP (10:58)
[2020-11-04] MEDS: dexamethasone 10 mg/mL INJ IVP (10:59)
--- NOTE | 2020-11-04 11:51 | PC.OT ---
CHECKED WITH NURSING AND PATIENT IS ABOUT TO RECEIVE FLUIDS AND CHEMO FOR THE REST OF THE AFTERNOON, HOLD THERAPY. IT IS ALSO HER FIRST TIME RECEIVING CHEMO WHICH THE PATIENT IS APPREHENSIVE ABOUT. WILL ATTEMPT TO TREAT TOMORROW.
[2020-11-04] MEDS: polyethylene glycol 3350 Pkt 17 gm PO (13:16)
[2020-11-04] MEDS: vancomycin 500 MG in sodium chloride 0.9% (plus) 100 ML 200 MG IV ×2 (14:20→22:27)
[2020-11-04] MEDS: levofloxacin-dextrose 5 % 750 MG/150 ML PREMIX 100 MG IV (14:48)
[2020-11-04] MEDS: ketorolac 30 mg/mL INJ 15 MG IVP ×2 (15:54→22:35)
[2020-11-04] MEDS: sennosides 8.6 mg Tablet 17.2 MG PO (21:11)
[2020-11-05] VITALS (14 sets, daily range): BP systolic 93–137; BP diastolic 58–83; PULSE 102–119; RESP 16–22; TEMP 36.2–36.6; O2SAT 91–100
--- NOTE | 2020-11-05 03:05 | PC.NURSE ---
Oxygen increase Pt needed more oxygen, pt upped from 5-7 NC to a 10 high flow. Pt is still stats at 84-90 with any removal of mask, she does not tolerate HOB below 30 degree angle
--- NOTE | 2020-11-05 03:06 | PC.NURSE ---
Painful swallowing Pt states, it hurts to swallow anything, pt reluctant to swallow PO medications.
[2020-11-05 05:46] LABS: Vancomycin Trough 7.5 ug/mL (10-15)
[2020-11-05 07:35] LABS: Hematocrit 27.5 % (37.0-47.0); Hemoglobin 8.4 g/dL (11.5-15.3); Mean Corpuscular HGB Conc 30.5 g/dL (30.0-36.0); Mean Corpuscular Hemoglobin 28.8 pg (28.0-34.0); Mean Corpuscular Volume 94.2 fL (81-99); Mean Platelet Volume 11.3 fL (7.4-10.4); Platelet Count 267 10^3/cmm (130-400); Red Blood Count 2.92 10^6/uL (4.1-5.3); Red Cell Distribution Width 16.2 % (12.1-15.1); White Blood Count 20.4 10^3/uL (4.0-10.0)
[2020-11-05 07:51] LABS: Alanine Aminotransferase 136 U/L (0-33); Albumin Level 2.9 g/dL (3.5-5.2); Alkaline Phosphatase 154 IU/L (35-105); Anion Gap 12.6 (5-19); Aspartate Amino Transferase 382 U/L (0-32); Blood Urea Nitrogen 27 mg/dL (6-20); Calcium 9.8 mg/dL (8.5-10.5); Carbon Dioxide 30 mmol/L (22-29); Chloride 99 mmol/L (98-107); Globulin 2.6 g/dL (1.3-4.6); Glomerular Filtration Rate 237.4 mL/min (90-130); Glucose 118 mg/dL (65-115); Osmolality Calculated 290 mOsm/kg (285-295); Potassium 4.6 mmol/L (3.5-5.1); Sodium 137 mmol/L (136-145); Total Bilirubin 0.8 mg/dL (0.15-1.2); Total Protein 5.5 g/dL (6.6-8.7)
--- NOTE | 2020-11-05 07:53 | PC.NURSE ---
discussed vanc trough with pharmacy, new orders to continue current vanc dose.
[2020-11-05] MEDS: vancomycin 500 MG in sodium chloride 0.9% (plus) 100 ML 200 MG IV ×3 (07:54→23:03)
[2020-11-05] MEDS: pantoprazole DR 40 mg Tablet PO (08:21)
[2020-11-05] MEDS: nystatin 100,000 unit/mL UDC 5 mL 500000 UNIT PO ×4 (08:21→23:02)
[2020-11-05] MEDS: FUROsemide 10 mg/mL SDV 2mL 20 MG IVP (08:21)
[2020-11-05] MEDS: polyethylene glycol 3350 Pkt 17 gm PO (08:26)
[2020-11-05 08:38] LABS: Slide Review Slide Review Perform
--- NOTE | 2020-11-05 08:42 | P.PN_ITS ---
Subjective Subjective: Interval history: Patient reports that she is unchanged. She continues to have right-sided chest pain and right upper extremity pain. She had chemotherapy yesterday. Vitals/I&O/Wt Last Vital Signs Temp 97.6 F 11/05/20 08:00 Pulse 113 H 11/05/20 08:00 Resp 18 11/05/20 08:00 BP 137/75 11/05/20 08:00 Pulse Ox 94 11/05/20 08:00 11/04/20 11/05/20 11/05/20 22:59 06:59 14:59 Intake Total 380 / 1860.35 100 / 1960.35 Balance 380 / 1860.35 100 / 1960.35 Physical Exam Narrative: EXAM NARRATIVE: Her lungs show minimal left basilar Rales and overall decreased air movement especially at bases.. Heart is regular. Lower extremities show no edema. Abdomen is tender throughout to palpation. Data : 11/05/20 05:06 11/05/20 05:06 A&P Assessment and plan (1) Neuroendocrine carcinoma metastatic to multiple sites: Status: Acute (2) Pleural effusion: Appears to be secondary to malignancy. Underlying pneumonia/bleeding cannot be ruled out. Status: Acute (3) Hypercalcemia of malignancy: Dehydration could also play some role. Status: Acute (4) Dehydration: With decreased oral intake Status: Acute (5) Thrombocytopenia: Status: Acute (6) Normocytic anemia: Status: Acute (7) Nicotine addiction: Status: Acute (8) Anxiety: Status: Acute (9) Thrush, oral: Status: Acute (10) Acute respiratory failure with hypoxia: Present on admission. Status: Acute Additional A&P Information PLAN: Continue current monitoring and treatment but hold Lasix for now. Continue Toradol which provided best pain control so far Patient has difficulty swallowing pills and we will see if we can transition everything to liquid form or IV if we can Attestations Medical Necessity Statement*: Patient with metastatic malignancy and significant pain requires close inpatient monitoring and treatment including pain control Coding Level of Care Code Acute Nursing Informatics Specialist for Gee Fwkaren Diagnoses Neuroendocrine carcinoma metastatic to multiple sites C7A.8; C7B.8 Pleural effusion J90 Hypercalcemia of malignancy E83.52 Dehydration E86.0 Thrombocytopenia D69.6 Normocytic anemia D64.9 Nicotine addiction F17.200 Anxiety F41.9 Thrush, oral B37.0 Acute respiratory failure with hypoxia J96.01
[2020-11-05] MEDS: allopurinol 300 mg Tablet PO (09:07)
[2020-11-05 09:08] LABS: Absolute Neutrophil 15.5 10^3/cmm (1.4-6.5); Absolute Segmented Neutrophil 14.1 10/cmm (1.6-7.1); Band Neutrophils Absolute 1.4 10^3/cmm (0.0-1.2); Eosinophils 0 %; Lymphocytes 3 %; Monocytes Absolute 1.2 10^3/cmm (0.1-0.6); Segmented Neutrophils 69 %; Total Cells Counted 100 (0-100)
[2020-11-05 09:09] LABS: Corrected White Blood Count 17.9 10^3/cmm (4.8-10.8)
[2020-11-05 09:10] LABS: Platelet Estimate Normal (Normal)
--- NOTE | 2020-11-05 09:11 | PC.NURSE ---
Patient reports difficulty breathing and not liking the current oxymask, RT notified and in to see patient, switched to high flow nasal canula, tolerated well, RT at bedside with patient.
[2020-11-05] MEDS: sodium chloride 0.9% 250 ML 75 ML IV (10:12)
[2020-11-05] MEDS: ondansetron 2 mg/ML SDV 2 mL 8 MG IV (10:14)
[2020-11-05] MEDS: ketorolac 30 mg/mL INJ 15 MG IVP (11:24)
--- NOTE | 2020-11-05 11:27 | PC.NURSE ---
Upon entry to the room patient stating ouch patient is also hallucinating per oncology nurse and patient spouse and experiencing anxiety, PRN toradol given per doctors orders, Dr. Delgado also notified of anxiety and requested something for PRN.
[2020-11-05] MEDS: LORazepam 2 mg/mL INJ 1 mL IVP (12:33)
--- NOTE | 2020-11-05 12:33 | PC.NURSE ---
anxiety noted patient moaning and crying out in fear, PRN ativan given per doctors orders, see MAR for further details.
[2020-11-05] MEDS: levofloxacin-dextrose 5 % 750 MG/150 ML PREMIX 100 MG IV (14:03)
--- NOTE | 2020-11-05 16:10 | PC.NURSE ---
Patient is resting quietly after OT completed bed bath, no distress noted, in room. No further anxiety noted.
[2020-11-05 19:46] LABS: Glucose Point of Care 206 mg/dL (70-110)
--- NOTE | 2020-11-05 19:50 | XRR_ITS ---
PROCEDURE INFORMATION: Exam: XR Chest, 1 View Exam date and time: 11/05/2020 8:00 PM Age: 50 years old Clinical indication: Shortness of breath; Additional info: Resp distress TECHNIQUE: Imaging protocol: XR of the chest Views: 1 view. COMPARISON: CR XR chest 1V [id number] 11/02/2020 2:16 PM FINDINGS: Tubes, catheters and devices: Tunnel Port-A-Cath in the right chest loops in the right neck and extends to the proximal SVC region unchanged from prior. Lungs: Compared to the prior imaging there is increasing opacification of the right thorax with whiteout of the right lung. Emphysematous changes of the left lung with hyperinflation apparent. Pleural spaces: No pneumothorax. Heart/Mediastinum: Unremarkable. No cardiomegaly. Bones/joints: Unremarkable. XR/XR chest 1V portable [id number] IMPRESSION: Increasing opacification of the right thorax since 11/02/2020 may represent combination of pleural effusion and increased atelectasis.
--- NOTE | 2020-11-05 19:51 | ECG_ITS ---
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 Measurements Intervals [place] Rate: 119 P: 70 CO: 97 QRS: 64 QRSD: 75 T: 34 QT: 298 QTc: 420 Interpretive Statements SINUS TACHYCARDIA WITH SHORT CO INTERVAL ABNORMAL RHYTHM ECG Compared to ECG 09/03/2020 14:15:00 Atrial abnormality no longer present ST (T wave) deviation no longer present Electronically Signed On 11-06-2020 19:21:08 SANITOR by Chloe Garzon M.D. [id number]
[2020-11-05 20:10] LABS: Basophils # 0.1 10^3/uL (0.0-0.1); Basophils % 0.8 %; Eosinophils # 0.3 10^3/uL (0.0-0.8); Eosinophils % 1.6 %; Hemoglobin 8.1 g/dL (11.5-15.3); Lymphocytes # 4.3 10^3/uL (0.8-4.8); Lymphocytes % 23.5 %; Mean Corpuscular Hemoglobin 27.9 pg (28.0-34.0); Mean Corpuscular Volume 93.1 fL (81-99); Mean Platelet Volume 10.5 fL (7.4-10.4); Monocytes # 0.5 10^3/uL (0.2-0.9); Neutrophils # 11.06 10^3/uL (1.8-7.7); Neutrophils % 60.7 %; Nucleated Red Blood Cells # 1.3 /100WBC; Platelet Count 222 10^3/cmm (130-400); Red Cell Distribution Width 16.4 % (12.1-15.1); White Blood Count 18.2 10^3/uL (4.0-10.0)
[2020-11-05 20:16] LABS: INR 1.51 (0.8-1.2)
[2020-11-05 20:22] LABS: Alanine Aminotransferase 179 U/L (0-33); Albumin Level 2.7 g/dL (3.5-5.2); Alkaline Phosphatase 154 IU/L (35-105); Anion Gap 15.3 (5-19); Aspartate Amino Transferase 443 U/L (0-32); Blood Urea Nitrogen 30 mg/dL (6-20); Calcium 8.5 mg/dL (8.5-10.5); Carbon Dioxide 27 mmol/L (22-29); Chloride 100 mmol/L (98-107); Globulin 2.7 g/dL (1.3-4.6); Glomerular Filtration Rate 237.4 mL/min (90-130); Glucose 177 mg/dL (65-115); Osmolality Calculated 297 mOsm/kg (285-295); Potassium 4.3 mmol/L (3.5-5.1); Sodium 138 mmol/L (136-145); Total Bilirubin 0.5 mg/dL (0.15-1.2); Total Protein 5.4 g/dL (6.6-8.7)
[2020-11-05] MEDS: propofol 1,000 MG/100 ML INJ 6.6 MG IV (20:30)
--- NOTE | 2020-11-05 20:30 | P.PNCC_ITS ---
Critical Care Event Note Critical Care Event The high probability of a clinically significant, sudden or life threatening deterioration of the patient's respiratory system(s) required my full and direct attention, intervention and personal management. The critical care time is as shown. This time is in addition to time spent performing any reported procedures but includes the following: [x] Data and vital sign review and interpretation [x] Patient assessment, examination and intervention [x] Documentation [x] Medication orders and management Rapid response was called at 1943 due to patient being found unresponsive and with oxygen saturations in the 50s. I arrived shortly thereafter. At shift change patient during nursing sign off had been conversive though sleepy. She received a dose of Ativan earlier in the day and has a fentanyl patch on but has not received any other sedating medications recently. She was tachycardic in the 100s, blood pressure was 90 systolic. She had decreased breath sounds on the right compared to the left but no tracheal deviation. Pulses were palpable. She was unresponsive to painful stimuli. Pupils were approximately 2 mm and sluggish. Fentanyl patch was removed by me. She was put on high flow oxygen with improvement in saturations to the 80s. BiPAP was initiated as an interim measure. ABG was ordered and showed 7.196/75/67/29. Stat portable chest x-ray showed completely jared out right lung. I reviewed medical records and prior x-rays. She had a thoracentesis on November 02 with bloody fluid, approximately liter removed. Cytology showed chronic inflammation without definitive signs of malignancy. Fluid has since reaccumulated. Discussed the case with Dr. Delgado, attending physician. Patient continued to be unresponsive to painful stimuli despite initiation of BiPAP and with current ABG findings decision made to proceed with intubation. Patient was transferred to the ICU. Procedure details as noted below. Post intubation, she remains tachycardic though heart rate is coming down. She had slight drop in blood pressures but current pressure is 98/63. Oxygen saturations are 100% on 100% FiO2, tidal volume 300 with PEEP of 6. Follow-up chest x-ray has been ordered. OG tube was placed. She did receive fluid bolus. Will order propofol and fentanyl for sedation. Again fentanyl patch was removed during rapid response. Will order Quinn catheter for close monitoring of urine output. Patient's was notified by nursing staff. Dr. Delgado will talk with him further about the next step of options. We will follow up pending stat labs and chest x-ray when they are completed. Patient maintained adequate pulse and blood pressures throughout event. We will recheck ABG shortly. Depending on clinical course tonight, may have to consider emergent thoracentesis. Critical Care Time Critical Care Time: Code activated: No Critical Care Time (min): 54 Additional information about critical care time: In 1945, out 2039 Procedures Intubation Time out performed: Yes Sedative: etomidate Mg given: 10 Paralytic: succinylcholine Mg given: 100 Laryngoscope: Abena ET tube size: 7.5 Tube secured depth (cm): 23 Tube secured location: lips Tube placement confirmation: visualized tube passing through cords, no breath sounds over epigastrium and color change noted Patient tolerated procedure: well Additional comments: Initially attempted to intubate patient via fiberoptic scope. Airway was quite anterior and I was unable to get ET tube angled sufficiently for placement. After 2 attempts via fiberoptic scope changed to laryngoscope. Vocal cords were easy to visualize but I had to get the end of the ET tube stylette at almost a 90 degree angle to enter the airway. Once this was accomplished, tube placement was easy. Tube visualized passing through the cords. Coding Level of Care Code Acute Quilting Machine Helper for Gee Richmond
--- NOTE | 2020-11-05 20:40 | PC.NURSE ---
1942-Rapid response ICU called for bed, pt family notified, spouse Justice Coffman. Last v/s at 1901 -97.2 t., 107HR, 20 RR, an B/P 101/60. Pt was alert and oriented at 1900 shift change. At report pt given toradol 15mg ivp at 1130 and Ativan 0.125 ivp at 1230. Pt sitting at 45 in bedside supine. Last v/s at 1901 were 97.2 t., 107HR, 20 RR, an B/P 101/60. Pt was alert and oriented at 1900 shift change. Full code, Pt found by nurse with oxygen status at 55. Pt not responsive to sternal rub. Glucose 208. Bilateral eyes, sluggish @2.0, non verbal/ no sounds with aggressive stimulation. Called for Rapid Response team. Dr Schilling came to run code, charge nurse Dayana, RT techs, bipap 100% on transfer, and nursing staff at bedside. Dr Schilling contacted attending physician, Family notified by nursing staff. Fentyl patch removed from Right shoulder by physician, Labs drawn from port, sent to lab, ordered bedside CXR. Fluid noted right sided. Transferred pt to ICU 9, report given to NAHUM Gong. Staff followed pt to ICU. @2010 EKG leads placed. @2017 100mg of Atomodate, 100 of succs ordered, BP 94/68, 98% oxygen rate, 103 HR. @2023 -Artificial airway attempted 2 times w/fiberoptic scope, changed to lyrngoscope @90 angle of tube @2299 Airway established successfully At 7 1/2 @2300 @2029 Rn started Propofol 10mcg/2.7 @2031 OG placed, gastric return noted, xray called to verify placement @2044 Order placed for Quinn, d/t incontinence. Hand off complete to ICU. Nahum Olivarez
[2020-11-05 21:06] LABS: Slide Review Slide Review Perform
--- NOTE | 2020-11-05 21:23 | XRR_ITS ---
PROCEDURE INFORMATION: Exam: XR Chest, 1 View Exam date and time: 11/05/2020 9:25 PM Age: 50 years old Clinical indication: Device placement; Ng tube; Additional info: Post intubation TECHNIQUE: Imaging protocol: XR of the chest Views: 1 view. COMPARISON: CR XR chest 1V portable [id number] 11/05/2020 8:01 PM FINDINGS: Tubes, catheters and devices: NG tube projects over the stomach but the distal tip is not imaged. Placement of endotracheal tube about 3 cm above jaki in good position. Right chest tunnel Port-A-Cath terminates in the proximal SVC region. Lungs: Mild increase in right upper lobe aeration compared to the prior. Left lung unchanged with hyperinflation and emphysematous changes noted. Pleural spaces: Persistent large right pleural effusion. Heart/Mediastinum: No cardiomegaly. Right-sided mediastinal mass versus medial right lung mass. Bones/joints: Unremarkable. XR/XR chest 1V portable [id number] IMPRESSION: 1. The NG tube projects below the margin of the film, at least to the mid gastric body area. 2. Endotracheal tube position is unremarkable.
--- NOTE | 2020-11-05 22:03 | PC.NURSE ---
Patient brought to ICU 2008 after rapid response called on Med Surg. Dr. Schilling at bedside, gave V.O. for 100 mg succinylcholine and 10 mg Etomidate which were both given IVP 2017, Dr. Schilling intubated patient 2019, good color change visualized, OG tube placed per V.O. 2030 placement confirmed by Auscultation and aspiration, ET and OG tube placement confirmed by CXR approximately 2114, OG tube inserted another 1.5 CM per V.O. from HCP followup CXR confirmed placement. Propofol started for sedation and Levophed started for hypotension per V.O. Alejandro at bedside 2129 and updated on patient condition.
[2020-11-05 22:56] LABS: Urine Color Yellow (Yellow); pH Urine 5 (5-7)
[2020-11-05 22:57] LABS: Add Urine Microscopic? YES; Bilirubin Urine Neg (Negative); Blood Urine 2+ (Negative); Glucose Urine UA Norm (Normal); Ketones Urine Negative (Negative); Leukocyte Esterase Urine Negative (Negative); Nitrate Urine Negative (Negative); Protein Urine Trace (Negative); Urobilinogen Urine 1 mg/dL (Negative)
[2020-11-05] MEDS: famotidine 20 mg/2 mL INJ IVP (23:01)
[2020-11-05] MEDS: sennosides 8.6 mg Tablet 17.2 MG PO (23:02)
[2020-11-05 23:16] LABS: Add Urine Culture? No; Amorphous Sediment Urine 2+ /hpf; Bacteria Urine 3+ /hpf; Hyaline Casts Urine >100 /lpf; Mucus Urine 2+ /hpf; Squamous Epithelial Cell Urine 25-40 /hpf (0-5); WBC Urine 0-4 /hpf (0-5)
--- NOTE | 2020-11-05 23:27 | PC.NURSE ---
BELLO noted to L neck NS 500 ml bolus running was stopped, Dr. Childers notified
[2020-11-05] MEDS: succinylcholine 20 mg/mL SDV 10mL 200 MG IVP (23:44)
[2020-11-06] VITALS (39 sets, daily range): BP systolic 84–117; BP diastolic 50–81; PULSE 112–140; RESP 16–24; TEMP 36.9–37.6; O2SAT 91–100
[2020-11-06 00:20] LABS: Glucose Point of Care 185 mg/dL (70-110)
[2020-11-06 02:12] LABS: Lactate Dehydrogenase 3321 U/L (135-214)
[2020-11-06] MEDS: ipratropium-albuterol 3 mL Neb INHALATION ×4 (02:49→20:19)
[2020-11-06 04:44] LABS: Basophils # 0.1 10^3/uL (0.0-0.1); Basophils % 0.4 %; Eosinophils # 0.1 10^3/uL (0.0-0.8); Eosinophils % 0.9 %; Hematocrit 24.4 % (37.0-47.0); Hemoglobin 7.6 g/dL (11.5-15.3); Lymphocytes # 2.5 10^3/uL (0.8-4.8); Lymphocytes % 21.4 %; Mean Corpuscular HGB Conc 31.1 g/dL (30.0-36.0); Mean Corpuscular Hemoglobin 28.5 pg (28.0-34.0); Mean Corpuscular Volume 91.4 fL (81-99); Mean Platelet Volume 10.9 fL (7.4-10.4); Monocytes # 0.4 10^3/uL (0.2-0.9); Monocytes % 3.2 %; Neutrophils # 7.75 10^3/uL (1.8-7.7); Neutrophils % 65.9 %; Nucleated Red Blood Cells # 0.7 /100WBC; Platelet Count 202 10^3/cmm (130-400); Red Blood Count 2.67 10^6/uL (4.1-5.3); Red Cell Distribution Width 16.1 % (12.1-15.1); White Blood Count 11.8 10^3/uL (4.0-10.0)
[2020-11-06 05:11] LABS: Alanine Aminotransferase 167 U/L (0-33); Albumin Level 2.5 g/dL (3.5-5.2); Alkaline Phosphatase 142 IU/L (35-105); Anion Gap 16.4 (5-19); Aspartate Amino Transferase 376 U/L (0-32); Blood Urea Nitrogen 29 mg/dL (6-20); Calcium 8.6 mg/dL (8.5-10.5); Carbon Dioxide 26 mmol/L (22-29); Chloride 100 mmol/L (98-107); Globulin 2.4 g/dL (1.3-4.6); Glomerular Filtration Rate 379.1 mL/min (90-130); Glucose 131 mg/dL (65-115); Magnesium 1.9 mg/dL (1.7-2.3); Osmolality Calculated 294 mOsm/kg (285-295); Potassium 4.4 mmol/L (3.5-5.1); Sodium 138 mmol/L (136-145); Total Bilirubin 0.6 mg/dL (0.15-1.2); Total Protein 4.9 g/dL (6.6-8.7); Uric Acid 5.6 mg/dL (2.4-5.7)
[2020-11-06 05:40] LABS: ABG PCO2 40.2 mmHg (35-45); ABG PH Result 7.46 (7.35-7.45); Arterial Blood Gas Hematocrit 20.1 % (37-47); Base Excess ABG 4.6 mmol/L (-2.0-2.0); Blood Gas Allen Test Pos; Blood Gas Operator Identificat JB; Blood Gas Sample Site Radial, right; Blood Gas Sample Type Arterial; HCO3 ABG 28.8 mmol/L (22-26); Oxygen Device VENT; PO2 ABG 78.4 mmHg (80.0-100.0)
[2020-11-06 06:18] LABS: Slide Review Slide Review Perform
[2020-11-06] MEDS: vancomycin 500 MG in sodium chloride 0.9% (plus) 100 ML 200 MG IV ×3 (06:21→21:13)
[2020-11-06 06:41] LABS: Basophils % 0.4 %; Eosinophils # 0.2 10^3/uL (0.0-0.8); Eosinophils % 1.4 %; Hematocrit 24.4 % (37.0-47.0); Hemoglobin 7.7 g/dL (11.5-15.3); Lymphocytes # 2.6 10^3/uL (0.8-4.8); Lymphocytes % 22.6 %; Mean Corpuscular HGB Conc 31.6 g/dL (30.0-36.0); Mean Corpuscular Hemoglobin 28.6 pg (28.0-34.0); Mean Corpuscular Volume 90.7 fL (81-99); Mean Platelet Volume 10.8 fL (7.4-10.4); Monocytes # 0.4 10^3/uL (0.2-0.9); Monocytes % 3.4 %; Neutrophils # 7.36 10^3/uL (1.8-7.7); Nucleated Red Blood Cells # 0.6 /100WBC; Nucleated Red Blood Cells % 5.5 %; Platelet Count 206 10^3/cmm (130-400); Red Blood Count 2.69 10^6/uL (4.1-5.3); Red Cell Distribution Width 16.1 % (12.1-15.1); White Blood Count 11.4 10^3/uL (4.0-10.0)
[2020-11-06 06:51] LABS: Neutrophils % 72.2 %
[2020-11-06] MEDS: phytonadione (ADULT) 10 mg/mL Ampule 1 mL 5 MG PO (08:07)
--- NOTE | 2020-11-06 08:51 | PM.PN ---
Subjective Subjective: Interval history: Patient became anxious yesterday afternoon and received small dose Ativan. She was doing well up until yesterday evening when she was found being without oxygen and unresponsive. Patient was evaluated by Dr. Schilling and was intubated and transferred to ICU. She is currently sedated on propofol and fentanyl. Because of hypotension she was started on Levophed drip. Her initial x-ray showed completely white out right side and this improved after she was mechanically ventilated. I highly suspect some obstructive process of her right bronchus whether related to malignancy or mucous plug. This morning patient is intubated and sedated. Her pupils are equal and conjugate. INR is 1.51 and hemoglobin is down to 7.7. Liver enzymes elevated with significantly elevated LDH and this is likely due to liver metastasis. Vitals/I&O/Wt Last Vital Signs Temp 97.2 F L 11/05/20 19:02 Pulse 116 H 11/06/20 08:50 Resp 23 H 11/06/20 08:46 BP 90/57 11/06/20 06:00 Pulse Ox 94 11/06/20 08:46 11/05/20 11/06/20 11/06/20 22:59 06:59 14:59 Intake Total 150 / 1400.85 200 / 1600.85 40 / 40 Output Total 275 / 275 Balance 150 / 1400.85 -75 / 1325.85 40 / 40 Physical Exam Narrative: EXAM NARRATIVE: Her lungs show decreased air movement on the right and with good air movement on the left side. Heart is regular. Lower extremities show trace pedal edema. Abdomen is tender throughout to palpation with some irregularities in the right upper quadrant on palpation. Urinary Catheter Management^: Quinn: Cath Placed During This Visit: yes Reason for Continuing Indwelling Catheter: Accurate Measurement of Urinary Output in Critically Ill Patients Urinary Catheter Date of Insertion: 11/05/20 Urinary Catheter Time of Insertion: 20:53 Data : 11/06/20 06:28 11/06/20 03:54 A&P Assessment and plan (1) Neuroendocrine carcinoma metastatic to multiple sites: Status: Acute (2) Pleural effusion: Appears to be secondary to malignancy. Underlying pneumonia/bleeding cannot be ruled out. Status: Acute (3) Hypercalcemia of malignancy: Dehydration could also play some role. Status: Acute (4) Dehydration: With decreased oral intake Status: Acute (5) Thrombocytopenia: Status: Acute (6) Normocytic anemia: Status: Acute (7) Nicotine addiction: Status: Acute (8) Anxiety: Status: Acute (9) Thrush, oral: Status: Acute (10) Acute respiratory failure with hypoxia: Present on admission. Status: Acute Additional A&P Information PLAN: 5 mg of vitamin K was given as patient is at risk for bleeding. Continue mechanical ventilation and will discuss with patient's when he comes to visit. Plan to interrupt sedation later today to assess patient's mental status. Continue antibiotics and monitor CBC. Continue allopurinol. Monitor urinary output and consider gentle IV hydration if needed. Currently patient's right-sided chest imaging does not appear to show significant pleural effusion for thoracentesis. There is could be quite complicated while patient is mechanically ventilated. Attestations Medical Necessity Statement*: Patient with respiratory failure requires close ICU monitoring and treatment including mechanical ventilation Time Spent in Patient Care: Greater than 35 minutes Coding Level of Care Code Acute Language Translator for [facility] Fwd Diagnoses Neuroendocrine carcinoma metastatic to multiple sites C7A.8; C7B.8 Pleural effusion J90 Hypercalcemia of malignancy E83.52 Dehydration E86.0 Thrombocytopenia D69.6 Normocytic anemia D64.9 Nicotine addiction F17.200 Anxiety F41.9 Thrush, oral B37.0 Acute respiratory failure with hypoxia J96.01
[2020-11-06] MEDS: famotidine 20 mg/2 mL INJ IVP ×2 (09:37→20:03)
[2020-11-06] MEDS: nystatin 100,000 unit/mL UDC 5 mL 500000 UNIT PO ×4 (09:37→20:14)
[2020-11-06] MEDS: allopurinol 300 mg Tablet PO (09:38)
[2020-11-06 10:36] LABS: ABG PCO2 53.8 mmHg (35-45); ABG PH Result 7.34 (7.35-7.45); Arterial Blood Gas Hematocrit 23.8 % (37-47); Base Excess ABG 2.9 mmol/L (-2.0-2.0); Blood Gas Allen Test Pos; Blood Gas Operator Identificat HARKR; Blood Gas Sample Site Radial, right; Blood Gas Sample Type Arterial; HCO3 ABG 29.2 mmol/L (22-26); Oxygen Device VENT
[2020-11-06 11:23] LABS: Arterial Blood Gas Hematocrit 26.4 % (37-47); Base Excess ABG 0.4 mmol/L (-2.0-2.0); Blood Gas Sample Site Brachial, right; Blood Gas Sample Type Arterial; Carboxyhemoglobin 1.1 %THgb (0.4-20.1); HCO3 ABG 29.3 mmol/L (22-26); Ionized Calcium Level - ABG 1.3 mmol/L (1.1-1.4); Methemoglobin 1.2 % (0.4-1.5); Oxygen Device OXY MASK; Oxygen Saturation ABG 90.1; PO2 ABG 67.5 mmHg (80.0-100.0); Potassium Level - ABG 4.3 mmol/L (3.5-5.0); Total Hemoglobin 8.6 g/dL (12-16)
[2020-11-06 11:30] LABS: Glucose Point of Care 136 mg/dL (70-110)
--- NOTE | 2020-11-06 13:47 | PC.OT ---
OT tx attempted. Pt has moved to ICU secondary to decline in status and is currently sedated/intubated. THOMAS to consult with OTR regarding discharging OT services at this time due to pt's critical condition.
[2020-11-06] MEDS: propofol 1,000 MG/100 ML INJ 8.8 MG IV ×2 (13:53→22:35)
[2020-11-06 14:04] LABS: ABG PCO2 75.7 mmHg (35-45)
[2020-11-06 15:16] LABS: Glucose Point of Care 131 mg/dL (70-110)
--- NOTE | 2020-11-06 15:26 | PC.OT ---
After chart review and discussion with treating THOMAS, patient is discharged from skilled OT services secondary to decline in health status.
[2020-11-06] MEDS: levofloxacin-dextrose 5 % 750 MG/150 ML PREMIX 100 MG IV (15:28)
[2020-11-06 18:03] LABS: Glucose Point of Care 150 mg/dL (70-110)
[2020-11-06] MEDS: sennosides 8.6 mg Tablet 17.2 MG PO (20:03)
[2020-11-06 20:09] LABS: Glucose Point of Care 142 mg/dL (70-110)
[2020-11-07] VITALS (39 sets, daily range): BP systolic 85–126; BP diastolic 45–73; PULSE 111–142; RESP 17–29; TEMP 38.8–39.4; O2SAT 91–95
[2020-11-07] MEDS: ipratropium-albuterol 3 mL Neb INHALATION ×4 (02:30→20:38)
--- NOTE | 2020-11-07 03:48 | PC.NURSE ---
dr toribio contacted r/t pt heart rate. currently 145 message left
[2020-11-07] MEDS: vancomycin 500 MG in sodium chloride 0.9% (plus) 100 ML 200 MG IV ×3 (06:02→22:06)
--- NOTE | 2020-11-07 08:41 | P.PN_ITS ---
Subjective Subjective: Interval history: Patient is intubated and sedated. She is tachycardic. She requires Levophed as likely her blood pressure declined because of sedation. Her urine is very cloudy with a lot of sediment. Propofol could play some role Vitals/I&O/Wt Last Vital Signs Temp 98.5 F 11/06/20 16:00 Pulse 142 H 11/07/20 06:00 Resp 29 H 11/07/20 08:22 BP 98/58 11/07/20 04:00 Pulse Ox 93 11/07/20 04:00 11/06/20 11/07/20 11/07/20 22:59 06:59 14:59 Intake Total 326.56 / 820.56 6.667 / 827.227 0 / 0 Output Total 430 / 430 140 / 570 Balance -103.44 / 390.56 -133.333 / 257.227 0 / 0 Physical Exam Narrative: EXAM NARRATIVE: Patient is intubated and sedated her lungs show decreased air movement on the right and with good air movement on the left side. Heart is regular but tachycardic. Trace lower extremity edema. Abdomen is tender throughout to palpation with some irregularities in the right upper quadrant on palpation. Urinary Catheter Management^: Quinn: Cath Placed During This Visit: yes Reason for Continuing Indwelling Catheter: Accurate Measurement of Urinary Output in Critically Ill Patients Urinary Catheter Date of Insertion: 11/05/20 Urinary Catheter Time of Insertion: 20:53 Data : 11/06/20 06:28 11/06/20 03:54 Micro: Microbiology 11/01/20 15:24 Blood Culture - Final Blood NO GROWTH AFTER 5 DAYS 11/01/20 14:00 Blood Culture - Final Blood NO GROWTH AFTER 5 DAYS 11/06/20 04:00 Gram Stain - Final Sputum - Endotracheal Tube Aspirate A&P Assessment and plan (1) Neuroendocrine carcinoma metastatic to multiple sites: Status: Acute (2) Pleural effusion: Appears to be secondary to malignancy. Underlying pneumonia/bleeding cannot be ruled out. Status: Acute (3) Hypercalcemia of malignancy: Dehydration could also play some role. Status: Acute (4) Dehydration: With decreased oral intake Status: Acute (5) Thrombocytopenia: Status: Acute (6) Normocytic anemia: Status: Acute (7) Nicotine addiction: Status: Acute (8) Anxiety: Status: Acute (9) Thrush, oral: Status: Acute (10) Acute respiratory failure with hypoxia: Present on admission. Status: Acute Additional A&P Information PLAN: Awaiting labs this morning. We will interrupt sedation and check patient's mental status. We will discuss with patient and her and make decision regarding extubation. We will continue current antibiotics. Overall patient has poor prognosis. Attestations Medical Necessity Statement*: Patient with respiratory failure requires close ICU monitoring and treatment including mechanical ventilation. Coding Level of Care Code Acute Burr Machine Operator for [facility] Fwd Diagnoses Neuroendocrine carcinoma metastatic to multiple sites C7A.8; C7B.8 Pleural effusion J90 Hypercalcemia of malignancy E83.52 Dehydration E86.0 Thrombocytopenia D69.6 Normocytic anemia D64.9 Nicotine addiction F17.200 Anxiety F41.9 Thrush, oral B37.0 Acute respiratory failure with hypoxia J96.01
[2020-11-07] MEDS: allopurinol 300 mg Tablet PO (08:45)
[2020-11-07] MEDS: famotidine 20 mg/2 mL INJ IVP ×2 (08:45→20:11)
[2020-11-07] MEDS: metoprolol tartrate 1 mg/1 mL SDV 5 mL 5 MG IV (08:45)
[2020-11-07] MEDS: nystatin 100,000 unit/mL UDC 5 mL 500000 UNIT PO ×4 (08:48→20:11)
[2020-11-07 09:22] LABS: Glucose Point of Care 164 mg/dL (70-110)
[2020-11-07 10:32] LABS: Albumin Level 2.3 g/dL (3.5-5.2); Alkaline Phosphatase 148 IU/L (35-105); Blood Urea Nitrogen 31 mg/dL (6-20); Calcium 8.7 mg/dL (8.5-10.5); Carbon Dioxide 25 mmol/L (22-29); Chloride 98 mmol/L (98-107); Globulin 2.7 g/dL (1.3-4.6); Glomerular Filtration Rate 237.4 mL/min (90-130); Glucose 137 mg/dL (65-115); Magnesium 1.9 mg/dL (1.7-2.3); Osmolality Calculated 285 mOsm/kg (285-295); Sodium 133 mmol/L (136-145); Total Bilirubin 0.8 mg/dL (0.15-1.2)
[2020-11-07 10:38] LABS: Vancomycin Trough 23.1 ug/mL (10-15)
[2020-11-07 10:44] LABS: Alanine Aminotransferase 249 U/L (0-33)
[2020-11-07 10:52] LABS: Basophils % 0.3 %; Eosinophils # 0.1 10^3/uL (0.0-0.8); Eosinophils % 0.9 %; Hematocrit 25.1 % (37.0-47.0); Hemoglobin 8.3 g/dL (11.5-15.3); Lymphocytes # 2.7 10^3/uL (0.8-4.8); Lymphocytes % 28.4 %; Mean Corpuscular HGB Conc 33.1 g/dL (30.0-36.0); Mean Corpuscular Hemoglobin 30.6 pg (28.0-34.0); Mean Corpuscular Volume 92.6 fL (81-99); Mean Platelet Volume 11.2 fL (7.4-10.4); Monocytes # 0.1 10^3/uL (0.2-0.9); Monocytes % 1.2 %; Neutrophils # 5.98 10^3/uL (1.8-7.7); Neutrophils % 62.9 %; Nucleated Red Blood Cells # 0.1 /100WBC; Nucleated Red Blood Cells % 1.1 %; Platelet Count 150 10^3/cmm (130-400); Red Blood Count 2.71 10^6/uL (4.1-5.3); Red Cell Distribution Width 15.9 % (12.1-15.1); White Blood Count 9.5 10^3/uL (4.0-10.0)
[2020-11-07 10:57] LABS: Aspartate Amino Transferase 702 U/L (0-32)
[2020-11-07 10:58] LABS: Anion Gap 14.6 (5-19); Potassium 4.6 mmol/L (3.5-5.1)
[2020-11-07 11:34] LABS: Slide Review Slide Review Perform
--- NOTE | 2020-11-07 12:39 | PC.CHAP ---
Pastoral Care Encounter/Spiritual Assessment Type of Contact [] Declined steel pickler visit [] Patient/Family/Request visit [] Outpatient visit [] Follow-up visit [] Physician referral [] Code/Alert [X] Routine visit [] Staff referral [] Actively dying [] Patient sleeping [] Family support [] [] Out of room [] Palliative care [] [] Receiving care in room [] Pre-surgical visit [] Trauma [] Long length of stay [] ICU visit [] Other: Relational/Emotional Strength [X] Patient feels connected with others/family/visitors/staff [] Distress [] Loneliness/isolation [] Abandonment Spirituality of Patient [X] Person of Vern[place] [] Attends Amish of their [place] [X] Believes in Prayer [] Reads Bible or Mormonism materials [] There are Spiritual issues to be addressed Granite Installer Interventions [X] Prayer [X] Active listening [X] Non-anxious presence [X] Spiritual/emotional support [] Crisis/trauma care [X] Spiritual counseling [] Bereavement support [] Provided bereavement packet [] Provided Bible/devotional materials [] Provided toy/stuffed animal, coloring book to patient or family member [] Provided Communion [] Anointing/Beaver [] Salvation [] Completed spiritual assessment [] Other: Impact on Illness or Injury [] Angry [] Fearful [X] Anxious [] Often cries [] Exhaustion [] Unable to work [] Unable to attend scientology [] Unable to walk/stand [] Unable to read [] Unable to drive [] Unable to eat/drink [] Unable to sleep [] Unable to be with family [] Patient intubated [] Other: Summary Pt was intubated and in unconscious. SO was present and Granite Installer spoke with him. He was very upset, distraught, and wiping tears, over his 's condition. Her deterioration occurred suddenly so he is still emotionally processing it. He said he left to go home to clean up and rest but within 30 minutes after he left he received a call that he should return. He feels guilty over his decision to return home. His family has buried 4 family members in 2019 so he is also dealing with these loses. He does have a total of 8 children and step children, extended family, and friends he can turn to for support. Time spent with patient 20m>
[2020-11-07 13:28] LABS: Glucose Point of Care 139 mg/dL (70-110)
[2020-11-07] MEDS: sodium chloride 0.9% 1,000 ML 50 ML IV (13:40)
[2020-11-07] MEDS: levofloxacin-dextrose 5 % 750 MG/150 ML PREMIX 100 MG IV (15:54)
[2020-11-07 17:40] LABS: Glucose Point of Care 160 mg/dL (70-110)
[2020-11-07] MEDS: propofol 1,000 MG/100 ML INJ 6.6 MG IV (18:55)
--- NOTE | 2020-11-07 18:57 | PC.NURSE ---
Patient has remained on the ventilator and on sedation this shift.
[2020-11-07] MEDS: sennosides 8.6 mg Tablet 17.2 MG PO (20:11)
[2020-11-07 20:19] LABS: Glucose Point of Care 140 mg/dL (70-110)
[2020-11-08] VITALS (45 sets, daily range): BP systolic 78–138; BP diastolic 47–86; PULSE 90–123; RESP 16–32; TEMP 36.7–38.3; O2SAT 94–100
[2020-11-08] MEDS: ipratropium-albuterol 3 mL Neb INHALATION ×4 (02:06→20:10)
[2020-11-08 04:56] LABS: ABG PCO2 38.8 mmHg (35-45); ABG PH Result 7.46 (7.35-7.45); Arterial Blood Gas Hematocrit 20.8 % (37-47); Base Excess ABG 3.7 mmol/L (-2.0-2.0); Blood Gas Allen Test Pos; Blood Gas Sample Site Radial, right; Blood Gas Sample Type Arterial; HCO3 ABG 27.8 mmol/L (22-26); Oxygen Device VENT; PO2 ABG 78.9 mmHg (80.0-100.0)
[2020-11-08] MEDS: vancomycin 500 MG in sodium chloride 0.9% (plus) 100 ML 200 MG IV ×2 (05:03→14:19)
[2020-11-08 06:56] LABS: Basophils % 0.6 %; Eosinophils # 0.1 10^3/uL (0.0-0.8); Eosinophils % 0.7 %; Hematocrit 21.6 % (37.0-47.0); Hemoglobin 6.8 g/dL (11.5-15.3); Lymphocytes # 1.7 10^3/uL (0.8-4.8); Lymphocytes % 23.4 %; Mean Corpuscular HGB Conc 31.5 g/dL (30.0-36.0); Mean Corpuscular Hemoglobin 29.3 pg (28.0-34.0); Mean Corpuscular Volume 93.1 fL (81-99); Mean Platelet Volume 10.8 fL (7.4-10.4); Monocytes % 0.4 %; Neutrophils # 4.41 10^3/uL (1.8-7.7); Neutrophils % 60.7 %; Nucleated Red Blood Cells % 0.3 %; Platelet Count 82 10^3/cmm (130-400); Red Blood Count 2.32 10^6/uL (4.1-5.3); White Blood Count 7.3 10^3/uL (4.0-10.0)
[2020-11-08 07:14] LABS: Alanine Aminotransferase 217 U/L (0-33); Albumin Level 2.1 g/dL (3.5-5.2); Alkaline Phosphatase 115 IU/L (35-105); Aspartate Amino Transferase 431 U/L (0-32); Blood Urea Nitrogen 24 mg/dL (6-20); Calcium 7.6 mg/dL (8.5-10.5); Carbon Dioxide 25 mmol/L (22-29); Chloride 105 mmol/L (98-107); Globulin 2.2 g/dL (1.3-4.6); Glomerular Filtration Rate 379.1 mL/min (90-130); Glucose 120 mg/dL (65-115); Magnesium 1.9 mg/dL (1.7-2.3); Osmolality Calculated 291 mOsm/kg (285-295); Sodium 138 mmol/L (136-145); Total Bilirubin 0.7 mg/dL (0.15-1.2); Total Protein 4.3 g/dL (6.6-8.7); Uric Acid 2.2 mg/dL (2.4-5.7)
[2020-11-08 07:24] LABS: Anion Gap 12.2 (5-19); Potassium 4.2 mmol/L (3.5-5.1)
[2020-11-08 07:31] LABS: Glucose Point of Care 143 mg/dL (70-110)
[2020-11-08 07:37] LABS: Lactate Dehydrogenase 3011 U/L (135-214)
[2020-11-08 07:54] LABS: Slide Review Slide Review Perform
--- NOTE | 2020-11-08 08:12 | XR_ITS ---
WS: [id number] PORTABLE CHEST HISTORY: hypoxia COMPARISON: 11/05/2020 Endotracheal tube in good position. Nasogastric tube terminates beyond the GE junction but is not inc luded on this series. RIGHT Port-A-Cath with tip in mid SVC. Very little aerated RIGHT lung. Increasing consolidation surrounding the central aerated lung. Probab ly combination of pleural fluid and atelectasis. Pneumonia not excluded. LEFT lung is clear. There is a small LEFT pleural effusion. No pneumothorax. Cardiac size: Normal. Mediastinum/Aorta: Mild atherosclerosis aorta. No osseous abnormality seen. XR/XR chest 1V portable [id number] IMPRESSION: 1. Nasogastric and endotracheal tubes in good position. 2. Large layering RIGHT pleural effusion with atelectasis. Superimposed pneumo cynthia may appear similar. No interval change.
--- NOTE | 2020-11-08 08:19 | USCV_ITS ---
Sia Coffman Age: 50 Gender: F : 1970 Exam Date: 11/08/2020 08:58 Ordering Phys: Kendell Qureshi MD Technologist: Rj Coker Exam Location: [facility] [place] Indication: LUNG CANCER BP: 128 / 78 HR: 76 Rhythm: Sinus Technical Quality: Fair MEASUREMENTS (Male / Female) Normal Values 2D ECHO LV Diastolic Diameter PLAX 3.5 cm 4.2 - 5.9 / 3.9 - 5.3 cm LV Systolic Diameter PLAX 2.1 cm IVS Diastolic Thickness 0.8 cm 0.6 - 1.0 / 0.6 - 0.9 cm IVS Systolic Thickness 1.2 cm LVPW Diastolic Thickness 0.8 cm 0.6 - 1.0 / 0.6 - 0.9 cm LVPW Systolic Thickness 1.3 cm LVOT Diameter 2.0 cm LV Ejection Fraction 2D Teich 71.3 % LA Diameter 2.4 cm LA Width 2.7 cm LA Height 3.5 cm RA Width 2.5 cm RA Height 2.8 cm M-MODE LV Diastolic Diameter MM 4.2 cm 4.2 - 5.9 / 3.9 - 5.3 cm LV Systolic Diameter MM 2.4 cm LV Ejection Fraction MM Teich 73.3 % IVS Diastolic Thickness MM 0.7 cm 0.6 - 1.0 / 0.6 - 0.9 cm IVS Systolic Thickness MM 1.1 cm LVPW Diastolic Thickness MM 0.7 cm 0.6 - 1.0 / 0.6 - 0.9 cm LVPW Systolic Thickness MM 1.3 cm RV Diastolic Diameter MM 1.4 cm Aortic Annulus Diameter 2.7 cm LA Ao Ratio MM 0.9 MV E Point Septal Separation 0.7 cm DOPPLER AV Peak Velocity 104.0 cm/s LVOT Peak Velocity 95.0 cm/s AV Area Cont Eq vti 3.9 cm squared AV Area Cont Eq pk 2.7 cm squared MV Area PHT 5.0 cm squared Mitral E to A Ratio 1.2 MV E' Velocity 37.0 cm/s Mitral E to MV E' Ratio 7.7 Mitral E to LV E' Lateral Ratio 7.8 Mitral E to LV E' Septal Ratio 7.6 TR Peak Velocity 268.0 cm/s TR Peak Gradient 28.7 mmHg TV Peak E Velocity 108.0 cm/s Right Atrial Pressure 3.0 mmHg Pulmonary Artery Systolic Pressu 31.7 mmHg FINDINGS Left Ventricle Normal left ventricular cavity size. Normal left ventricular systolic function. Left ventricular ejection fraction is estimated at 55 %. There is possible septal hypokinesis. Abnormal diastolic function. Right Ventricle Normal right ventricular size and systolic function. Right ventricular systolic pressure 31.7 mmHg. Right Atrium Right atrium not well visualized. Probably normal right atrial size. Left Atrium Left atrium not well visualized. Mitral Valve Thickened mitral valve. No mitral valve stenosis. Trace mitral valve regurgitation. Aortic Valve Aortic valve not well visualized. No aortic valve stenosis. No aortic valve regurgitation. Tricuspid Valve Thickened tricuspid valve. Mild tricuspid valve regurgitation. Pulmonic Valve Pulmonic valve not well visualized. Pericardium Small pericardial effusion more along right ventricle. No evidence of tamponade physiology. Aorta Normal sized aortic root. CONCLUSIONS 1. Normal left ventricular cavity size and systolic function. Left ventricular ejection fraction is estimated at 55 %. There is possible septal hypokinesis. Abnormal diastolic function. 2. Mild tricuspid valve regurgitation. 3. Normal pulmonary artery pressure. 4. Small pericardial effusion more along right ventricle. No evidence of tamponade physiology. 5. No prior similar studies to compare. Krystina Crain MD (Electronically Signed) Final Date: 08 November 2020 17:50 S
[2020-11-08] MEDS: allopurinol 300 mg Tablet PO (08:51)
[2020-11-08] MEDS: nystatin 100,000 unit/mL UDC 5 mL 500000 UNIT PO ×4 (08:51→21:37)
[2020-11-08] MEDS: famotidine 20 mg/2 mL INJ IVP ×2 (08:51→21:37)
[2020-11-08 09:30] LABS: LAB Peripheral Smear Sent for Review
--- NOTE | 2020-11-08 09:37 | PC.CHAP ---
Pastoral Care Encounter/Spiritual Assessment Type of Contact [] Declined satellite dish repairer visit [] Patient/Family/Request visit [] Outpatient visit [] Follow-up visit [] Physician referral [] Code/Alert [x] Routine visit [] Staff referral [] Actively dying [] Patient sleeping [] Family support [] [] Out of room [] Palliative care [] [] Receiving care in room [] Pre-surgical visit [] Trauma [] Long length of stay [x] ICU visit [] Other: Relational/Emotional Strength [] Patient feels connected with others/family/visitors/staff [] Distress [] Loneliness/isolation [] Abandonment Spirituality of Patient [] Person of Vern[place] [] Attends Rastafarian of their [place] [] Believes in Prayer [] Reads Bible or Tenriism materials [] There are Spiritual issues to be addressed Underground Miner Interventions [x] Prayer [] Active listening [] Non-anxious presence [] Spiritual/emotional support [] Crisis/trauma care [] Spiritual counseling [] Bereavement support [] Provided bereavement packet [] Provided Bible/devotional materials [] Provided toy/stuffed animal, coloring book to patient or family member [] Provided Communion [] Anointing/[place]orah [] Salvation [x] Completed spiritual assessment [] Other: Impact on Illness or Injury [] Angry [] Fearful [] Anxious [] Often cries [] Exhaustion [] Unable to work [] Unable to attend bahai [] Unable to walk/stand [] Unable to read [] Unable to drive [] Unable to eat/drink [] Unable to sleep [] Unable to be with family [] Patient intubated [] Other: Summary satellite dish repairer entered room- prayed for patient and assured patient, satellite dish repairer would return tomorrow.... Time spent with patient
--- NOTE | 2020-11-08 10:47 | P.CONIM_ITS ---
Providers/Reason For Consult Consulting Physican/Specialty*: Pulmonary critical care medicine Reason for Consult*: Respiratory failure in a patient with metastatic lung cancer Attending Physician: Kendell Qureshi Primary Care Provider: Ashley Jennings History of Present Illness History of Present Illness Sia Coffman is a 50 year old female who I had initially evaluated on September 08 for right upper lobe lung mass. The patient underwent bronchoscopy on September 10, 2020. The right upper lobe transbronchial biopsy was consistent with poorly differentiated carcinoma with neuroendocrine differentiation. The 4R knee for station was also consistent with metastatic poorly differentiated carcinoma with neuroendocrine differentiation. The patient sees Dr. Alberts. She underwent port placement on October 19, 2020. The patient presented to the hospital on November 01 with worsening shortness of breath and was found to have a large right-sided pleural effusion. The patient underwent ultrasound-guided thoracentesis on November 02, 2010 100 cc of fluid was removed. CT angiogram obtained on November 03 revealed significant progression of the malignant disease. There is no pulmonary embolism. The right upper lobe bronchus was narrowed. There is loculated large right-sided pleural effusion. During hospitalization, the patient developed progressively worsening hypoxic respiratory failure and got intubated on November 05. The patient received 1 dose of chemotherapy for her cancer during hospitalization. I was asked to come and see the patient today for possible extubation. The patient was seen and examined in the ICU. The patient is awake on small dose of fentanyl and propofol. Able to answer questions by nodding her head. The bedside ultrasound revealed a large right-sided pleural effusion as well as a small left-sided pleural effusion. The CT scan of the head did not reveal any evidence of metastatic disease however an MRI would be necessary in the future. Review of Systems Narrative: Unable to assess due to the clinical condition Meds/Allergies Home Medications and Allergies Home Medications Medication Instructions Recorded Confirmed Last Taken Type albuterol sulfate 90 mcg/actuation 2 puff INHALATION QID PRN 30 Days 09/27/20 11/01/20 10/19/20 Rx aerosol inhaler #18 g diazepam 5 mg/5 mL (1 mg/mL, 5 mL) See Rx Instructions .ROUTE 09/27/20 11/01/20 10/17/20 History oral solution .COMPLEX ml tiotropium 2.5 mcg-olodaterol 2.5 2 puff INHALATION DAILY 30 Days #4 09/27/20 11/01/20 10/29/20 Rx mcg/actuation mist for inhalation g ibuprofen [Children's Ibuprofen] 200 mg PO Q4H PRN 10/14/20 11/01/20 11/01/20 02:00 History fentanyl 1 patch TRANSDERMAL Q72H 10/19/20 11/01/20 10/31/20 History hydrocodone-acetaminophen 15 ml PO Q4H PRN 11/01/20 11/01/20 10/31/20 22:00 History 7 ml hydroxyzine HCl See Rx Instructions .ROUTE .COMPLEX 11/01/20 11/01/20 Unknown History pediatric multivitamin no.30 2 tab PO QAM 11/01/20 11/01/20 Unknown History [Gummies Children Multivitamin] polyethylene glycol 3350 [ClearLax] 17 g PO DAILY PRN 11/01/20 11/01/20 10/31/20 History Allergies Allergy/AdvReac Type Severity Reaction Status Date / Time No Known Allergies Allergy Verified 11/04/20 14:41 Current Medications Current Medications Generic Name Dose Route Start Last Admin Trade Name Freq PRN Reason Stop Dose Admin Albuterol/Ipratropium 3 ml 11/05/20 21:00 11/08/20 08:28 Ipratropium-Albuterol 3 Ml Neb INHALATION 3 ml Q6H.RESPIRATORY YUNIOR Administration Allopurinol 300 mg 11/05/20 09:00 11/08/20 08:51 Allopurinol 300 Mg Tablet PO 300 mg DAILY YUNIOR Administration Famotidine 20 mg 11/05/20 21:00 11/08/20 08:51 Famotidine 20 Mg/2 Ml Inj IVP 20 mg Q12H YUNIOR Administration Fentanyl 1 patch 11/03/20 09:00 11/03/20 08:05 Fentanyl 50 Mcg Patch TRANSDERMA 1 patch Q72H YUNIOR Administration Furosemide 20 mg 11/04/20 09:00 11/05/20 08:21 Furosemide 10 Mg/Ml Sdv 2ml IVP 20 mg Q24H YUNIOR Administration Levofloxacin/Dextrose 750 mg in 150 mls @ 100 mls/hr 11/03/20 11:30 11/07/20 17:55 Levaquin-D5w IV Infused Q24H YUNIOR Infusion Protocol Vancomycin HCl 500 mg/ Sodium 100 mls @ 200 mls/hr 11/04/20 14:00 11/08/20 05:45 Chloride IV Infused Q8H YUNIOR Infusion Propofol 1,000 mg in 100 mls @ 0 mls/hr 11/05/20 20:15 11/07/20 18:55 Diprivan IV 30 mcg/kg/min .Q0M YUNIOR 6.6 mls/hr Administration Protocol Per Protocol Norepinephrine Bitartrate 4 mg 254 mls @ 0 mls/hr 11/05/20 20:15 11/08/20 05:00 / Dextrose IV 3 mcg/min .Q0M YUNIOR 11.4 mls/hr Administration Protocol Per Protocol Fentanyl 1,000 mcg/ Sodium 100 mls @ 0 mls/hr 11/05/20 21:00 11/08/20 04:57 Chloride IV 40 mcg/hr .Q0M YUNIOR 4 mls/hr Administration Protocol Per Protocol Sodium Chloride 1,000 mls @ 50 mls/hr 11/07/20 12:45 11/07/20 13:40 Sodium Chloride 0.9% IV 50 mls/hr .Q20H YUNIOR Administration Imipenem/Cilastatin Sodium 250 100 mls @ 200 mls/hr 11/07/20 14:00 11/08/20 05:45 mg/ Sodium Chloride IV Infused Q8H YUNIOR Infusion Insulin Aspart 0 unit 11/05/20 23:15 11/07/20 20:14 Insulin Aspart 100 Unit/1 Ml SUBCUT Not Given BEDTIME [facility] Protocol Insulin Aspart 0 unit 11/06/20 08:00 11/08/20 08:51 Insulin Aspart 100 Unit/1 Ml SUBCUT 2 unit TIDWM [facility] Administration Protocol Ketorolac Tromethamine 15 mg 11/03/20 13:41 11/05/20 11:24 Ketorolac 30 Mg/Ml Inj IVP 11/08/20 13:40 15 mg Q6H PRN Administration MODERATE PAIN Lorazepam 0.125 mg 11/05/20 11:27 11/05/20 12:33 Lorazepam 2 Mg/Ml Inj 1 Ml IVP 0.125 mg Q4H PRN Administration ANXIETY Metoprolol Tartrate 5 mg 11/02/20 17:42 11/07/20 08:45 Metoprolol Tartrate 1 Mg/1 Ml Sdv 5 Ml IV 5 mg Q4H PRN Administration HEART RATE-HIGH Morphine Sulfate 2 mg 11/01/20 18:14 11/03/20 02:10 Morphine 4 Mg/Ml Sdv 1 Ml IVP 2 mg Q4H PRN Administration SEVERE PAIN Nystatin 500,000 unit 11/01/20 21:00 11/08/20 08:51 Nystatin 100,000 Unit/Ml Udc 5 Ml PO 500,000 unit QID YUNIOR Administration Polyethylene Glycol 17 gm 11/01/20 18:36 11/05/20 08:26 Polyethylene Glycol 3350 Pkt 17 Gm PO 17 gm DAILY PRN Administration Constipation Senna 17.2 mg 11/01/20 21:00 11/07/20 20:11 Sennosides 8.6 Mg Tablet PO 17.2 mg BEDTIME YUNIOR Administration PFSH Acute PFSH: Medical History Anxiety Surgical History Delivery by section H/O dilation and curettage H/O LEEP History of hysterectomy S/P lumpectomy, right breast Social History Smoking and tobacco status: current every day smoker cigarettes Years cigarettes smoked: 40 [ Other cigarette details: Hx of 1PPD x 40 Years ] Quit status (tobacco): considering quitting Second hand smoke exposure: Yes Smoking risk assessment/counseling performed?: Yes Alcohol intake: current Alcohol intake frequency: holidays/special occasions only Desire information about substance/drug rehabilitation?: No Counseling given: Yes Lives independently: Yes Household members: spouse Marital status: Current occupational status: disabled History of recent travel: No Current gender identity: Female Vitals/I&O/Wt Last Vital Signs Temp 98.0 F 11/08/20 08:00 Pulse 103 H 11/08/20 08:29 Resp 17 11/08/20 10:41 BP 100/58 11/08/20 08:00 Pulse Ox 98 11/08/20 08:28 11/07/20 11/08/20 11/08/20 22:59 06:59 14:59 Intake Total 802.872 / 1049.155 299.896 / 1349.051 Output Total 350 / 550 275 / 825 Balance 452.872 / 499.155 24.896 / 524.051 Physical Exam Narrative: EXAM NARRATIVE: General: Patient is intubated and mildly sedated, able to follow commands. The patient appears cachectic Neck: No JVD Respiratory: Auscultation: Reduced breath sound in the right hemithorax, no wheezing or rhonchi Cardiovascular: Tachycardia, S1-S2 present, no murmur, no right ventricular heave, minimal peripheral edema. Abdomen: Soft, nontender, nondistended, positive bowel sound Skin: Edema in bilateral upper extremities Neuro: The patient is able to follow commands and answers simple questions and move all extremities. Urinary Catheter Management^: Quinn: Cath Placed During This Visit: yes Reason for Continuing Indwelling Catheter: Accurate Measurement of Urinary Output in Critically Ill Patients Urinary Catheter Date of Insertion: 11/05/20 Urinary Catheter Time of Insertion: 20:53 Data Micro: Micro: Microbiology 11/06/20 04:00 Gram Stain - Final Sputum - Endotrac heal Tube Aspirate Sputum Culture - F inal Other Data: Attestation for Other Data: I personally reviewed and interpreted the following: Other data: I have reviewed the laboratory, microbiologic and radiologic data. Please see the HPI for details. A&P Assessment and plan (1) Acute respiratory failure with hypoxia: The patient has acute hypoxic respiratory failure secondary to a combination of her emphysema, large right upper lobe lung mass leading to reduced caliber of right upper lobe bronchus, worsening right-sided pleural effusion likely secondary to malignancy as well. The patient is currently on full control mechanical ventilation. The patient underwent thoracentesis on November 02 however the pleural fluid her completion has occurred again. At this time, the patient will be candidate for Pleurx catheter. This will likely help her with extubation, and keep her out of the hospital as well and provide comfort. Status: Acute (2) Malignant pleural effusion: Status: Acute (3) Neuroendocrine carcinoma metastatic to multiple sites: Status: Acute (4) Lung cancer: Patient most likely has metastatic lung cancer with neuroendocrine differentiation possibly small cell lung cancer. The patient has received 1 course of chemotherapy. Her overall prognosis is very poor. Status: Acute Qualifiers: Laterality: unspecified laterality Lung location: unspecified part of lung Qualified Code(s): C34.90 - Malignant neoplasm of unspecified part of unspecified bronchus or lung Coding Level of Care Code Acute Hospitality Director for [facility] Diagnoses Acute respiratory failure with hypoxia J96.01 Malignant pleural effusion J91.0 Neuroendocrine carcinoma metastatic to multiple sites C7A.8; C7B.8 Lung cancer C34.90 Laterality: unspecified laterality Lung location: unspecified part of lung
[2020-11-08 11:17] LABS: Glucose Point of Care 125 mg/dL (70-110)
--- NOTE | 2020-11-08 12:00 | P.PN_ITS ---
Subjective Subjective: Interval history: This morning she is awake, alert, however subsequently with weaning sedation getting anxious. During my visit denies chest pain or pressure. Somewhat bothered by ET tube, but otherwise feels breathing is not bothering her significantly with ventilatory support. Vitals/I&O/Wt Last Vital Signs Temp 98.0 F 11/08/20 08:00 Pulse 103 H 11/08/20 08:29 Resp 18 11/08/20 11:51 BP 100/58 11/08/20 08:00 Pulse Ox 98 11/08/20 08:28 11/07/20 11/08/20 11/08/20 22:59 06:59 14:59 Intake Total 802.872 / 1049.155 299.896 / 1349.051 Output Total 350 / 550 275 / 825 Balance 452.872 / 499.155 24.896 / 524.051 Physical Exam Const: COMMON NORMALS: no acute distress and patient oriented x3 GENERAL APPEARANCE: anxious (min) and frail appearing ORIENTATION/CONSCIOUSNESS: Yes awake OTHER: Intubated HENMT: COMMON NORMALS: oropharynx normal Neck/C-Spine: COMMON NORMALS: no JVD Resp: COMMON NORMALS: normal respiratory effort and clear to auscultation bilaterally AUSCULTATION: clear to auscultation bilaterally Cardio: COMMON NORMALS: no JVD, regular rhythm, S1 normal heart sound present, S2 normal heart sound present and No murmurs present (Cardio) RHYTHM: regular rhythm HEART SOUNDS: S1 normal heart sound present and S2 normal heart sound present GI: COMMON NORMALS: Normal to inspection, nondistended, normoactive bowel sounds present, Soft to palpation and non-tender PALPATION: Yes Soft to palpation Extremity: COMMON NORMALS: no joint enlargement GENERAL: Yes edema (Bilate ral hand and pedal edema, 2+) Neuro: COMMON NORMALS: patient oriented x3 and moves all extremities Skin: COMMON NORMALS: no rashes or lesions noted GENERAL SKIN EXAM: no rashes or lesions noted Urinary Catheter Management^: Quinn: Cath Placed During This Visit: yes Reason for Continuing Indwelling Catheter: Accurate Measurement of Urinary Output in Critically Ill Patients Urinary Catheter Date of Insertion: 11/05/20 Urinary Catheter Time of Insertion: 20:53 Data : 11/08/20 06:38 11/08/20 06:38 Micro: Microbiology 11/06/20 04:00 Gram Stain - Final Sputum - Endotracheal Tube Aspirate Sputum Culture - Final A&P Assessment and plan (1) Acute respiratory failure with hypoxia: Additionally assessed by chest x-ray this morning, with finding of progression of right lung effusion. Additionally with anemia today requiring 1 unit PRBC transfusion. With also concern for possibility of lymphangitic spread in the right lung on CTA. Discussed concerns with pulmonology, appreciate assessment additional recommendations. Discussed also with her recommendation for Pleurx catheter. She otherwise continues on empiric antibiotics with Levaquin, Primaxin, vancom ycin due to recurrent fevers, with possible underlying pneumonia. Status: Acute (2) Neuroendocrine carcinoma metastatic to multiple sites: Discussed with her oncologist. Underwent partial palliative chemotherapy. In case responsive may see some improvement within 2-3 weeks if makes it through the acute episode, at which point consideration may be given to reimaging, possible additional palliative chemotherapy. Discussed with her . He understands that due to diffusely metastatic disease she is at high risk of multiple additional comorbidities that may still occur in between now and then. Status: Acute (3) Malignant pleural effusion: As above. Status: Acute (4) Thrombocytopenia: Thrombocytopenia noted today, platelets down to 82,000. For now only SCD for DVT prophylaxis. Appears to be chemotherapy related. Status: Acute (5) Normocytic anemia: Suspect chemotherapy related. Check Hemoccult. Today will receive 1 unit PBC transfusion. Status: Acute (6) Hypercalcemia of malignancy: Resolved. Status: Acute Additional A&P Information Anxiety Nicotine addiction Thrush: Continue nystatin Attestations Medical Necessity Statement*: Continue admission for assessment management of respiratory failure, recurrent malignant pleural effusion with underlying metastatic malignancy, acute anemia, thrombocytopenia. 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
--- NOTE | 2020-11-08 12:41 | XR_ITS ---
WS: [id number] PORTABLE CHEST HISTORY: Post Pleurx catheter placement COMPARISON: 11/08/2020. Moderate improvement in aeration throughout the RIGHT lung as compared to the prior study the same da y. Apical capping consistent with the pleural fluid over the RIGHT apex which is probably due to supi ne positioning. Chest tube has been placed with the tip overlying the medial RIGHT lower thorax. No p leural effusion or pneumothorax. Cardiac size: Normal. Mediastinum/Aorta: Mild atherosclerosis aorta. Mild atelectasis noted adjacent to the aortic arch. Po rt-A-Cath present with tip in the distal SVC. Endotracheal nasogastric tubes in good position. No osseous abnormality seen. XR/XR chest 1V portable [id number] IMPRESSION: 1. Moderate improvement in aeration throughout the RIGHT lung. Less pleural ef fusion. 2. Interval insertion of a RIGHT chest tube. 3. Pleural effusion over the RIGHT apex with atelectasis RIGHT upper lobe.
--- NOTE | 2020-11-08 12:42 | PM.ACPR ---
Procedure/Consent Time out: Time Out Performed: Yes Consent: Consent for Procedure: Consent obtained from other (indicate) Procedure Narrative: Name of the procedure: Right-sided Pleurx catheter placement Indication: Malignant pleural effusion with rapid recurrence Anesthesia: The patient is intubated and sedated with fentanyl and propofol Local: 1% lidocaine 13 mL. Description of the procedure: The the procedure including risks are discussed and consent was obtained from the significant other. The patient was placed in left lateral position. Using the ultrasound a safe fluid pocket was identified in the right eighth intercostal space in the midaxillary line. The site was marked. The patient was then prepared using sterile technique. 1% lidocaine was used to anesthetize the skin and subcutaneous tissue periosteum and the pleural space was entered. Serosanguineous fluid was aspirated. The introducer needle was then introduced into the pleural space. The guide wire was introduced and left in place. About 6 cm from the initial introduction site in the anterolateral chest wall a second incision was made. The pleural catheter was then tunneled under the skin with the help of a trocar. The initial site was then dilated and the Pleurx catheter was advanced into the pleural space without any difficulty. The incision sites were sutured. There was good hemostasis. 1700 cc of serosanguineous fluid was drained. Complications: None Follow-up: 1. The patient will follow-up with me in 10 days time for removal of sutures. Acute Procedures Epistaxis Control: Time out performed: Yes
[2020-11-08] MEDS: FUROsemide 10 mg/mL SDV 2mL 20 MG IVP (13:29)
[2020-11-08] MEDS: sodium chloride 0.9% (100 ml) 100 ML 20 ML (13:30)
[2020-11-08] MEDS: propofol 1,000 MG/100 ML INJ 2.2 MG IV (13:31)
--- NOTE | 2020-11-08 14:44 | PC.NURSE ---
Patient remains intubated. Blood transfusion is running per orders.
--- NOTE | 2020-11-08 16:05 | PC.NURSE ---
Error Temperature was entered incorrectly on vitals for 1550 in TAR. temp was entered as 100.9. Correct temp was 99.8
[2020-11-08 17:47] LABS: Glucose Point of Care 130 mg/dL (70-110)
[2020-11-08 21:31] LABS: Glucose Point of Care 117 mg/dL (70-110)
[2020-11-08] MEDS: sennosides 8.6 mg Tablet 17.2 MG PO (21:37)
[2020-11-09] VITALS (32 sets, daily range): BP systolic 84–122; BP diastolic 49–75; PULSE 98–117; RESP 15–29; TEMP 36.8–37.1; O2SAT 92–98
[2020-11-09] MEDS: ipratropium-albuterol 3 mL Neb INHALATION ×4 (03:08→20:40)
[2020-11-09 04:09] LABS: Hematocrit 31.7 % (37.0-47.0); Mean Corpuscular HGB Conc 31.5 g/dL (30.0-36.0); Mean Corpuscular Hemoglobin 29.1 pg (28.0-34.0); Mean Corpuscular Volume 92.2 fL (81-99); Mean Platelet Volume 10.9 fL (7.4-10.4); Platelet Count 52 10^3/cmm (130-400); Red Blood Count 3.44 10^6/uL (4.1-5.3); Red Cell Distribution Width 15.3 % (12.1-15.1); White Blood Count 3.9 10^3/uL (4.0-10.0)
[2020-11-09 04:24] LABS: Alanine Aminotransferase 174 U/L (0-33); Albumin Level 2.1 g/dL (3.5-5.2); Alkaline Phosphatase 115 IU/L (35-105); Aspartate Amino Transferase 268 U/L (0-32); Blood Urea Nitrogen 22 mg/dL (6-20); Calcium 7.1 mg/dL (8.5-10.5); Carbon Dioxide 25 mmol/L (22-29); Chloride 105 mmol/L (98-107); Globulin 2.3 g/dL (1.3-4.6); Glomerular Filtration Rate 379.1 mL/min (90-130); Glucose 104 mg/dL (65-115); Osmolality Calculated 294 mOsm/kg (285-295); Sodium 140 mmol/L (136-145); Total Bilirubin 0.9 mg/dL (0.15-1.2); Total Protein 4.4 g/dL (6.6-8.7)
[2020-11-09 04:27] LABS: Slide Review Slide Review Perform
[2020-11-09] MEDS: propofol 1,000 MG/100 ML INJ 8.8 MG IV (04:27)
[2020-11-09 04:33] LABS: Absolute Segmented Neutrophil 2.7 10/cmm (1.6-7.1); Band Neutrophils Absolute 0.2 10^3/cmm (0.0-1.2); Lymphocytes 24 %; Segmented Neutrophils 70 %; Total Cells Counted 100 (0-100)
[2020-11-09 04:34] LABS: Absolute Neutrophil 2.9 10^3/cmm (1.4-6.5); Platelet Estimate Decreased (Normal); Poikilocytosis 1+; Tear Drop Cells Trace
[2020-11-09 04:35] LABS: Eosinophils 0 %
[2020-11-09 04:37] LABS: Anion Gap 13.7 (5-19); Potassium 3.7 mmol/L (3.5-5.1)
[2020-11-09 05:19] LABS: ABG PCO2 37.1 mmHg (35-45); ABG PH Result 7.48 (7.35-7.45); Arterial Blood Gas Hematocrit 41.8 % (37-47); Base Excess ABG 3.9 mmol/L (-2.0-2.0); Blood Gas Operator Identificat JB; Blood Gas Sample Site Brachial, right; Blood Gas Sample Type Arterial; HCO3 ABG 27.5 mmol/L (22-26); Oxygen Device VENT; PO2 ABG 69.2 mmHg (80.0-100.0)
[2020-11-09] MEDS: sodium chloride 0.9% 1,000 ML 50 ML IV (05:42)
--- NOTE | 2020-11-09 06:00 | XR_ITS ---
WS: [id number] PORTABLE CHEST HISTORY: Hypoxia COMPARISON: 11/08/2020 Endotracheal and nasogastric tubes are in good position. Right-sided Port-A-Cath with tip in the mid SVC. RIGHT basilar chest tube is noted. There is continued obscuration of the RIGHT apex is dense consolid ation which may be pleural fluid or loculated fluid. Increased soft tissue along the RIGHT paratrache al region. Patient has known soft tissue tumor at the RIGHT apex and extending along the RIGHT paratr acheal and RIGHT hilar regions. Scattered opacifications throughout the remaining RIGHT aerated lung. Small LEFT pleural effusion. Cardiac size: Normal. Mediastinum/Aorta: Normal mediastinum. No osseous abnormality seen. XR/XR chest 1V portable [id number] IMPRESSION: 1. Nasogastric and endotracheal tubes in good position. 2. Dense opacification at the RIGHT apex and RIGHT paratracheal region corresp onds to soft tissue masses seen on the recent CT of 11/03/2020. 3. Right-sided chest tube with tip terminating in the RIGHT lower thorax.
--- NOTE | 2020-11-09 06:39 | PC.NURSE ---
uneventful night, eyes open and alert, responds to verbal and follows commands, tolerating vent
[2020-11-09 07:41] LABS: Glucose Point of Care 113 mg/dL (70-110)
--- NOTE | 2020-11-09 08:44 | PM.PN ---
Subjective Subjective: Interval history: The patient was seen and examined. She underwent Pleurx catheter placement yesterday with 1700 cc of serosanguineous fluid drained. The patient is intubated and sedated currently. She is arousable and follows simple commands. The tidal volume is significantly better today than yesterday. Medications: Reviewed: Yes Vitals/I&O/Wt Last Vital Signs Temp 98.8 F 11/09/20 08:00 Pulse 103 H 11/09/20 08:07 Resp 20 H 11/09/20 08:07 BP 113/66 11/09/20 08:00 Pulse Ox 97 11/09/20 08:07 11/08/20 11/09/20 11/09/20 22:59 06:59 14:59 Intake Total 579.427 / 1834.377 136.707 / 1971.084 Output Total 1000 / 1150 700 / 1850 75 / 75 Balance -420.573 / 684.377 -563.293 / 121.084 -75 / -75 Weight last 48 hrs Weight 83 lb Physical Exam Narrative: EXAM NARRATIVE: General: Patient is intubated and mildly sedated, able to follow commands. The patient appears cachectic Neck: No JVD Respiratory: Auscultation: Breath sound is better on the right side compared to yesterday, no wheezing or rhonchi Cardiovascular: Regular rate and rhythm, S1-S2 present, no murmur, no right ventricular heave, minimal peripheral edema. Abdomen: Soft, nontender, nondistended, positive bowel sound Skin: Edema in bilateral upper extremities Neuro: Patient is currently sedated with fentanyl and propofol, arousable and able to follow commands Urinary Catheter Management^: Quinn: Cath Placed During This Visit: yes Reason for Continuing Indwelling Catheter: Accurate Measurement of Urinary Output in Critically Ill Patients Urinary Catheter Date of Insertion: 11/05/20 Urinary Catheter Time of Insertion: 20:53 Data : 11/09/20 03:18 11/09/20 03:18 Micro: Microbiology 11/06/20 04:00 Gram Stain - Final Sputum - Endotracheal Tube Aspirate Sputum Culture - Final Attestation for Other Data: I personally reviewed and interpreted the following: Other data: I have reviewed the patient laboratory, microbiologic and radiologic data. Chest x-ray from this morning revealed dense consolidation in the right apex and paratracheal area from known cancer, pleural effusion is much better. A&P Assessment and plan (1) Acute respiratory failure with hypoxia: The patient has acute hypoxic respiratory failure secondary to a combination of her emphysema, large right upper lobe lung mass leading to reduced caliber of right upper lobe bronchus, worsening right-sided pleural effusion likely secondary to malignancy as well. The patient is currently doing well. Good tidal volumes oxygen saturation is good. The patient should be ready for extubation. We will turn of the sedation and extubate her promptly. Status: Acute (2) Malignant pleural effusion: The patient has a right-sided Pleurx catheter. For now we will continue to drain every other day. Hopefully this will keep her out of the hospital and help her with her shortness of breath. Status: Acute (3) Neuroendocrine carcinoma metastatic to multiple sites: Status: Acute (4) Lung cancer: Patient most likely has metastatic lung cancer with neuroendocrine differentiation possibly small cell lung cancer. The patient has received 1 course of chemotherapy. Her overall prognosis is very poor. 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
[2020-11-09] MEDS: famotidine 20 mg/2 mL INJ IVP ×2 (08:58→21:07)
[2020-11-09] MEDS: nystatin 100,000 unit/mL UDC 5 mL 500000 UNIT PO ×3 (08:58→21:07)
[2020-11-09] MEDS: allopurinol 300 mg Tablet PO (08:58)
--- NOTE | 2020-11-09 09:47 | PC.NURSE ---
Extubation Patient was extubated at 0930 and placed on 2L NC. Tolerated well. No complaints at this time
--- NOTE | 2020-11-09 09:49 | PC.RESP ---
extubated pt extubated and placed on 3lpm nc. tolerated well
--- NOTE | 2020-11-09 10:35 | P.PN_ITS ---
Subjective Subjective: Interval history: Awake, alert, calm. Denies any discomfort or pain, although ET tube is bothering her, and she does not want it taken out today. Vitals/I&O/Wt Last Vital Signs Temp 98.8 F 11/09/20 08:00 Pulse 103 H 11/09/20 08:07 Resp 20 H 11/09/20 08:07 BP 113/66 11/09/20 08:00 Pulse Ox 97 11/09/20 08:07 11/08/20 11/09/20 11/09/20 22:59 06:59 14:59 Intake Total 579.427 / 1834.377 136.707 / 1971.084 100 / 100 Output Total 1000 / 1150 700 / 1850 75 / 75 Balance -420.573 / 684.377 -563.293 / 121.084 25 / 25 Weight last 48 hrs Weight 37.648 kg Physical Exam Const: COMMON NORMALS: no acute distress and patient oriented x3 GENERAL APPEARANCE: comfortable, anxious (min) and frail appearing ORIENTA TION/CONSCIOUSNESS: Yes awake OTHER: Intubated HENMT: COMMON NORMALS: oropharynx normal Neck/C-Spine: COMMON NORMALS: no JVD Resp: COMMON NORMALS: normal respiratory effort and clear to auscultation bilaterally AUSCULTATION: clear to auscultation bilaterally Cardio: COMMON NORMALS: no JVD, regular rhythm, S1 normal heart sound present, S2 normal heart sound present and No murmurs present (Cardio) RHYTHM: regular rhythm HEART SOUNDS: S1 normal heart sound present and S2 normal heart sound present GI: COMMON NORMALS: Normal to inspection, nondistended, normoactive bowel sounds present, Soft to palpation and non-tender PALPATION: Yes Soft to palpation Extremity: COMMON NORMALS: no joint enlargement GENERAL: Yes edema (Bilateral hand and pedal edema, 1+) Neuro: COMMON NORMALS: patient oriented x3 and moves all extremities Skin: COMMON NORMALS: no rashes or lesions noted GENERAL SKIN EXAM: no rashes or lesions noted Urinary Catheter Management^: Quinn: Cath Placed During This Visit: yes Reason for Continuing Indwelling Catheter: Accurate Measurement of Urinary Output in Critically Ill Patients Urinary Catheter Date of Insertion: 11/05/20 Urinary Catheter Time of Insertion: 20:53 Data : 11/09/20 03:18 11/09/20 03:18 Micro: Microbiology 11/06/20 04:00 Gram Stain - Final Sputum - Endotracheal Tube Aspirate Sputum Culture - Final A&P Assessment and plan (1) Acute respiratory failure with hypoxia: Oxygenation remained stable. 1.7 L drained last night. Pleurx catheter was placed. She is awake, alert, calm, following commands. Planned extubation this morning. Per discussion with pulmonology antibiotics de-escalate it to Primaxin alone for now. Continue to monitor. Status: Acute (2) Thrombocytopenia: Leukopenia and thrombocytopenia with decreased counts today. Platelets down to 52,000. Monitor. Hemoglobin did respond well to previous transfusion. For now only SCD for DVT prophylaxis. Appears to be chemotherapy related. Status: Acute (3) Neuroendocrine carcinoma metastatic to multiple sites: Discussed with her oncologist. Underwent partial palliative chemotherapy. In case responsive may see some improvement within 2-3 weeks if makes it through the acute episode, at which point consideration may be given to reimaging, possible additional palliative chemotherapy. Discussed with her . He understands that due to diffusely metastatic disease she is at high risk of multiple additional comorbidities that may still occur in between now and then. Status: Acute (4) Malignant pleural effusion: As above. Status: Acute (5) Normocytic anemia: Hemoglobin responded well to previous transfusion. Up to 10 today. Monitor. Requested Hemoccult. Status: Acute (6) Hypercalcemia of malignancy: Resolved. Status: Acute Additional A&P Information Anxiety Nicotine addiction Thrush: Continue nystatin Attestations Medical Necessity Statement*: Continue admission for assessment and management of respiratory failure. Coding Level of Care Code Acute Natural Resources Technician for [facility] Diagnoses Acute respiratory failure with hypoxia J96.01 Thrombocytopenia D69.6 Neuroendocrine carcinoma metastatic to multiple sites C7A.8; C7B.8 Malignant pleural effusion J91.0 Normocytic anemia D64.9 Hypercalcemia of malignancy E83.52
--- NOTE | 2020-11-09 10:39 | PC.CHAP ---
Pastoral Care Encounter/Spiritual Assessment Type of Contact [] Declined coal yard supervisor visit [] Patient/Family/Request visit [] Outpatient visit [] Follow-up visit [] Physician referral [] Code/Alert [x] Routine visit [] Staff referral [] Actively dying [] Patient sleeping [] Family support [] [] Out of room [] Palliative care [] [] Receiving care in room [] Pre-surgical visit [] Trauma [] Long length of stay [x] ICU visit [] Other: Relational/Emotional Strength [] Patient feels connected with others/family/visitors/staff [] Distress [] Loneliness/isolation [] Abandonment Spirituality of Patient [] Person of Vern[place] [] Attends Jew of their [place] [] Believes in Prayer [] Reads Bible or Yazidi materials [] There are Spiritual issues to be addressed Engine Watchman Interventions [x] Prayer [] Active listening [] Non-anxious presence [] Spiritual/emotional support [] Crisis/trauma care [] Spiritual counseling [] Bereavement support [] Provided bereavement packet [] Provided Bible/devotional materials [] Provided toy/stuffed animal, coloring book to patient or family member [] Provided Communion [] Anointing/[place] [] Salvation [x] Completed spiritual assessment [] Other: Impact on Illness or Injury [] Angry [] Fearful [] Anxious [] Often cries [] Exhaustion [] Unable to work [] Unable to attend sikhism [] Unable to walk/stand [] Unable to read [] Unable to drive [] Unable to eat/drink [] Unable to sleep [] Unable to be with family [] Patient intubated [] Other: Summary patient unable to communicate.. setting up.. coal yard supervisor assured patient she would be back tomorrow. Time spent with patient 10 min
[2020-11-09 11:28] LABS: Glucose Point of Care 111 mg/dL (70-110)
[2020-11-09] MEDS: morphine 4 mg/mL SDV 1 mL 2 MG IVP ×2 (14:25→20:51)
[2020-11-09 16:28] LABS: Glucose Point of Care 101 mg/dL (70-110)
--- NOTE | 2020-11-09 21:51 | PC.NURSE ---
Addendum entered by Eugene Boyer RN 11/09/20 22:01: wasted 75 ml of fentanyl out of 100ml bag Addendum entered by Emmanuel Lynn RN 11/09/20 21:58: Correction: Wasted 75mL of fentanyl out of a 100mL bag. Wasted was witnessed by Stacie Boyre RN. Original Note: Wasted 75mcg of fentanyl out of a 100mL bag. Waste was witnessed by Shorty Perla RN.
--- NOTE | 2020-11-09 22:49 | PC.NURSE ---
Received report from off going nurse. Pt's plan of care reviewed. Pt is resting in bed. Pt is stating she cant breathing. Pt is sating 93% on 3LPM/NC. Respirations are in the 30s. Pt was given 2mg/IV morphine for air hunger. Pt responded well and is now breathing 20RPM and sating 95% on 3LPM. Pt verbally stated she feels better. Pt denies any other pains or concerns at this time. No s/sx of distress noted. Pt refused PO medications stating she doesn't take pills. States she has high anxiety when having to take them. I asked if she was willing to take them crushed in apple sauce but pt still refuses to take them. Bed in lowest and locked position, call light and water within reach, x's 2 rails up. Pt states she just wants to go to sleep and be left alone. Offered to turn her but she refused. Will continue to monitor pt.
--- NOTE | 2020-11-09 23:46 | PC.NURSE ---
Pt c/o difficulty breathing again. States that it feels like she is suffocating. Pt is sating 93% on 3LPM/NC. Good air flow noted in bilateral lungs. Breathing 30-40RPM. Notified hospitalist. New order given. Pt does not appear to be in the reported distress when I'm not in room. When reentering the room after notifying the hospitalist pt was asleep and respirations were even and unlabored. No s/sx of distress noted. Sating 93% on 3LPM/NC and breathing 20RPM. Once she opened her eyes and seen that I was in the room she was instantly back into distress.
[2020-11-10] VITALS (30 sets, daily range): BP systolic 107–167; BP diastolic 48–86; PULSE 74–107; RESP 18–43; TEMP 36.5–37.1; O2SAT 89–98
[2020-11-10] MEDS: LORazepam 2 mg/mL INJ 1 mL 0.5 MG IVP (00:10)
[2020-11-10] MEDS: sodium chloride 0.9% 1,000 ML 50 ML IV (00:53)
--- NOTE | 2020-11-10 00:55 | PC.NURSE ---
Pt was given 0.5mg IV ativan. Pt appears to be resting comfortably with her eyes closed at this time. Respirations are even and unlabored. No s/sx of distress noted. BP 123/71, Respirations 22, 97% on 3LPM/NC. Will continue to monitor.
[2020-11-10] MEDS: ipratropium-albuterol 3 mL Neb INHALATION ×4 (02:58→21:02)
[2020-11-10] MEDS: morphine 4 mg/mL SDV 1 mL 2 MG IVP ×4 (05:08→23:14)
[2020-11-10 05:18] LABS: Hemoglobin 9.7 g/dL (11.5-15.3); Lymphocytes # 1.3 10^3/uL (0.8-4.8); Lymphocytes % 41.4 %; Mean Corpuscular HGB Conc 32.3 g/dL (30.0-36.0); Mean Corpuscular Hemoglobin 28.4 pg (28.0-34.0); Mean Platelet Volume 11.8 fL (7.4-10.4); Monocytes # 0.1 10^3/uL (0.2-0.9); Neutrophils # 1.05 10^3/uL (1.8-7.7); Neutrophils % 34.7 %; Nucleated Red Blood Cells % 0 %; Red Blood Count 3.41 10^6/uL (4.1-5.3); Red Cell Distribution Width 15.2 % (12.1-15.1)
[2020-11-10 05:36] LABS: Alanine Aminotransferase 130 U/L (0-33); Albumin Level 2.3 g/dL (3.5-5.2); Alkaline Phosphatase 106 IU/L (35-105); Anion Gap 11.3 (5-19); Aspartate Amino Transferase 186 U/L (0-32); Blood Urea Nitrogen 15 mg/dL (6-20); Calcium 7.3 mg/dL (8.5-10.5); Carbon Dioxide 25 mmol/L (22-29); Chloride 106 mmol/L (98-107); Globulin 1.8 g/dL (1.3-4.6); Glomerular Filtration Rate 131.7 mL/min (90-130); Glucose 84 mg/dL (65-115); Osmolality Calculated 288 mOsm/kg (285-295); Potassium 3.3 mmol/L (3.5-5.1); Sodium 139 mmol/L (136-145); Total Protein 4.1 g/dL (6.6-8.7)
[2020-11-10 06:10] LABS: Platelet Count 24 10^3/cmm (130-400); Slide Review Slide Review Perform
[2020-11-10 06:14] LABS: Glucose Point of Care 117 mg/dL (70-110)
[2020-11-10 08:00] LABS: Glucose Point of Care 92 mg/dL (70-110)
--- NOTE | 2020-11-10 09:24 | PC.CHAP ---
Pastoral Care Encounter/Spiritual Assessment Type of Contact [] Declined vacation planner visit [] Patient/Family/Request visit [] Outpatient visit [] Follow-up visit [] Physician referral [] Code/Alert [x] Routine visit [] Staff referral [] Actively dying [] Patient sleeping [] Family support [] [] Out of room [] Palliative care [] [] Receiving care in room [] Pre-surgical visit [] Trauma [] Long length of stay [x] ICU visit [] Other: Relational/Emotional Strength [] Patient feels connected with others/family/visitors/staff [] Distress [] Loneliness/isolation [] Abandonment Spirituality of Patient [] Person of Vernell [] Attends Yazdanism of their [place] [] Believes in Prayer [] Reads Bible or Roman Catholic materials [] There are Spiritual issues to be addressed Physics Instructor Interventions [x] Prayer [] Active listening [] Non-anxious presence [] Spiritual/emotional support [] Crisis/trauma care [] Spiritual counseling [] Bereavement support [] Provided bereavement packet [] Provided Bible/devotional materials [] Provided toy/stuffed animal, coloring book to patient or family member [] Provided Communion [] Anointing/[place] [] Salvation [x] Completed spiritual assessment [] Other: Impact on Illness or Injury [] Angry [] Fearful [] Anxious [] Often cries [] Exhaustion [] Unable to work [] Unable to attend lutheran [] Unable to walk/stand [] Unable to read [] Unable to drive [] Unable to eat/drink [] Unable to sleep [] Unable to be with family [] Patient intubated [] Other: Summary patient ate some... needs cough addressed... feeling stronger Time spent with patient 10 min
[2020-11-10] MEDS: potassium chloride oral liq 20 mEq/15 mL UDC PO (09:35)
[2020-11-10] MEDS: allopurinol 300 mg Tablet PO (09:35)
[2020-11-10] MEDS: nystatin 100,000 unit/mL UDC 5 mL 500000 UNIT PO ×4 (09:35→22:28)
[2020-11-10] MEDS: famotidine 20 mg/2 mL INJ IVP ×2 (09:36→22:24)
[2020-11-10 11:19] LABS: Glucose Point of Care 105 mg/dL (70-110)
--- NOTE | 2020-11-10 13:01 | PM.PN ---
Subjective Subjective: Interval history: She gets easily tired, and gets short of breath with exertion. She otherwise is doing all right. Denies chest pain or pressure. Tolerating breakfast. Vitals/I&O/Wt Last Vital Signs Temp 97.7 F 11/10/20 08:00 Pulse 104 H 11/10/20 10:00 Resp 24 H 11/10/20 10:00 BP 122/66 11/10/20 10:00 Pulse Ox 89 L 11/10/20 10:00 11/09/20 11/10/20 11/10/20 22:59 06:59 14:59 Intake Total 685.25 / 785.25 1319.167 / 2104.417 504.167 / 504.167 Output Total 650 / 725 Balance 685.25 / 710.25 669.167 / 1379.417 504.167 / 504.167 Weight last 48 hrs Weight 45.019 kg Weight 37.648 kg Physical Exam Const: COMMON NORMALS: no acute distress, patient oriented x3 and alert GENERAL APPEARANCE: cooperative and frail appearing ORIENTATION/CONSCIOUSNESS: Yes awake OTHER: Nasal cannula on. Gets tired with moving around in bed. HENMT: COMMON NORMALS: oropharynx normal Neck/C-Spine: COMMON NORMALS: no JVD Resp: COMMON NORMALS: normal respiratory effort and clear to auscultation bilaterally AUSCULTATION: clear to auscultation bilaterally Cardio: COMMON NORMALS: no JVD, regular rhythm, S1 normal heart sound present, S2 normal heart sound present and No murmurs present (Cardio) RHYTHM: regular rhythm HEART SOUNDS: S1 normal heart sound present and S2 normal heart sound present GI: COMMON NORMALS: Normal to inspection, nondistended, normoactive bowel sounds present, Soft to palpation and non-tender PALPATION: Yes Soft to palpation Extremity: COMMON NORMALS: no joint enlargement GENERAL: Yes edema (Bilateral hand and pedal edema, 1+) Neuro: COMMON NORMALS: patient oriented x3 and moves all extremities SENSORIUM/ORIENTATION: Yes alert Skin: COMMON NORMALS: no rashes or lesions noted GENERAL SKIN EXAM: no rashes or lesions noted Urinary Catheter Management^: Quinn: Cath Placed During This Visit: yes Reason for Continuing Indwelling Catheter: Accurate Measurement of Urinary Output in Critically Ill Patients Urinary Catheter Date of Insertion: 11/05/20 Urinary Catheter Time of Insertion: 20:53 Data : 11/10/20 04:20 11/10/20 04:20 A&P Assessment and plan (1) Acute respiratory failure with hypoxia: So far has done well on 3 L nasal cannula, although does note quite significant fatigability, shortness of breath with exertion. Avoid additional IV fluids. Will resume her Lasix given her blood pressures have improved. Continue oxygenation support. Wean down as tolerating. If no additional issues continue care on medical surgical floor. 1.7 L drained 11/09. Pleurx catheter was placed. She is awake, alert, calm, following commands. Continue Primaxin alone for now. Continue to monitor. Discussed w . Status: Acute (2) Thrombocytopenia: Leukopenia and thrombocytopenia with decreased counts today. Platelets down to 24,000. Discussed w , if continuing to decline may need PLT transfusion. For now only SCD for DVT prophylaxis. Likely chemotherapy related. Status: Acute (3) Neuroendocrine carcinoma metastatic to multiple sites: Discussed with her oncologist. Underwent partial palliative chemotherapy. In case responsive may see some improvement within 2-3 weeks if makes it through the acute episode, at which point consideration may be given to reimaging, possible additional palliative chemotherapy. Discussed with her . He understands that due to diffusely metastatic disease she is at high risk of multiple additional comorbidities that may still occur in between now and then. Discussed with if oxygention continues to improve consideration of additional assessment by MRI brain. Status: Acute (4) Malignant pleural effusion: As above. Status: Acute (5) Normocytic anemia: Hemoglobin responded well to previous transfusion. Monitor. Requested Hemoccult. Status: Acute (6) Hypercalcemia of malignancy: Resolved. Status: Acute Additional A&P Information Anxiety Nicotine addiction Thrush: Continue nystatin Attestations Medical Necessity Statement*: Continue admission for cyst management following respiratory failure, fluid overload, recurrent pleural effusion, malignant pleural effusion, static malignancy including possible right lung lymphangitic spread, worsening thrombocytopenia, neutropenia. Coding Level of Care Code Acute Store Receiving Specialist for [facility] Fwd Diagnoses Acute respiratory failure with hypoxia J96.01 Thrombocytopenia D69.6 Neuroendocrine carcinoma metastatic to multiple sites C7A.8; C7B.8 Malignant pleural effusion J91.0 Normocytic anemia D64.9 Hypercalcemia of malignancy E83.52
[2020-11-10 17:19] LABS: Glucose Point of Care 140 mg/dL (70-110)
[2020-11-10 17:19] LABS: Glucose Point of Care 98 mg/dL (70-110)
[2020-11-10 22:04] LABS: Glucose Point of Care 100 mg/dL (70-110)
[2020-11-11] VITALS (23 sets, daily range): BP systolic 88–145; BP diastolic 50–75; PULSE 86–112; RESP 16–28; TEMP 36.3–36.9; O2SAT 91–96
--- NOTE | 2020-11-11 00:20 | PC.NURSE ---
Left leg seems to be the best place to get pt blood pressure.
--- NOTE | 2020-11-11 02:08 | PC.NURSE ---
Patient refused her PO alvin baptiste. I called ICU to see how she had been taking her pills. ICU nurse that had been taking care of her said she has not been taking her PO medications because she has been refusing them.
[2020-11-11] MEDS: ipratropium-albuterol 3 mL Neb INHALATION ×4 (03:23→20:29)
[2020-11-11 06:19] LABS: Basophils % 0.9 %; Eosinophils % 1.3 %; Hematocrit 26.3 % (37.0-47.0); Hemoglobin 8.5 g/dL (11.5-15.3); Lymphocytes # 1.1 10^3/uL (0.8-4.8); Lymphocytes % 47.4 %; Mean Corpuscular HGB Conc 32.3 g/dL (30.0-36.0); Mean Corpuscular Hemoglobin 28.5 pg (28.0-34.0); Mean Corpuscular Volume 88.3 fL (81-99); Monocytes # 0.1 10^3/uL (0.2-0.9); Monocytes % 4.3 %; Neutrophils # 1.05 10^3/uL (1.8-7.7); Neutrophils % 45.7 %; Nucleated Red Blood Cells % 0 %; Red Blood Count 2.98 10^6/uL (4.1-5.3); Red Cell Distribution Width 15.3 % (12.1-15.1); White Blood Count 2.3 10^3/uL (4.0-10.0)
[2020-11-11] MEDS: morphine 4 mg/mL SDV 1 mL 2 MG IVP (06:19)
[2020-11-11 06:43] LABS: Alanine Aminotransferase 102 U/L (0-33); Albumin Level 2.2 g/dL (3.5-5.2); Alkaline Phosphatase 92 IU/L (35-105); Anion Gap 9.5 (5-19); Aspartate Amino Transferase 116 U/L (0-32); Blood Urea Nitrogen 12 mg/dL (6-20); Calcium 7.1 mg/dL (8.5-10.5); Carbon Dioxide 28 mmol/L (22-29); Chloride 105 mmol/L (98-107); Globulin 1.9 g/dL (1.3-4.6); Glucose 76 mg/dL (65-115); Osmolality Calculated 287 mOsm/kg (285-295); Potassium 3.5 mmol/L (3.5-5.1); Sodium 139 mmol/L (136-145); Total Bilirubin 0.8 mg/dL (0.15-1.2); Total Protein 4.1 g/dL (6.6-8.7)
[2020-11-11 06:47] LABS: Glomerular Filtration Rate 843.6 mL/min (90-130)
[2020-11-11 06:48] LABS: Platelet Count 14 10^3/cmm (130-400); Slide Review Slide Review Perform
[2020-11-11 06:49] LABS: Glucose Point of Care 86 mg/dL (70-110)
[2020-11-11] MEDS: famotidine 20 mg/2 mL INJ IVP ×2 (08:19→21:01)
[2020-11-11] MEDS: nystatin 100,000 unit/mL UDC 5 mL 500000 UNIT PO ×4 (08:19→21:13)
[2020-11-11] MEDS: allopurinol 300 mg Tablet PO (08:19)
[2020-11-11] MEDS: FUROsemide 10 mg/mL SDV 2mL 20 MG IVP (08:19)
[2020-11-11 12:39] LABS: Glucose Point of Care 108 mg/dL (70-110)
[2020-11-11] MEDS: ALPRAZolam 0.25 mg Tablet 0.125 MG PO (15:13)
--- NOTE | 2020-11-11 15:59 | PC.NURSE ---
Pleural fluid drained from pleurex catheter to right chest, 1150mL blood tinged fluid drained per doctors orders, dressing change completed using sterile technique, patient tolerated well without difficulty.
[2020-11-11 17:18] LABS: Glucose Point of Care 120 mg/dL (70-110)
--- NOTE | 2020-11-11 20:24 | PM.PN ---
Subjective Subjective: Interval history: She feels she is showing some mild gradual improvement, however, was having some anxiety today. is at bedside. Denies chest pain. Overall feels that doing a bit better. No nausea vomiting or diarrhea. Vitals/I&O/Wt Last Vital Signs Temp 97.4 F L 11/11/20 20:00 Pulse 111 H 11/11/20 20:00 Resp 19 H 11/11/20 20:00 BP 116/73 11/11/20 20:00 Pulse Ox 95 11/11/20 20:00 11/11/20 11/11/20 11/11/20 06:59 14:59 22:59 Intake Total 200 / 9274.500 0779 / 1517 820 / 2337 Output Total 350 / 800 2750 / 2750 Balance -150 / 237.187 8165 / 1517 -1930 / -413 Weight last 48 hrs Weight 44.906 kg Weight 45.019 kg Physical Exam Const: COMMON NORMALS: no acute distress, patient oriented x3 and alert GENERAL APPEARANCE: cooperative and frail appearing ORIENTATION/CONSCIOUSNESS: Yes awake OTHER: Nasal cannula on. Perhaps little bit less fatigable today. Anxious. HENMT: COMMON NORMALS: oropharynx normal Neck/C-Spine: COMMON NORMALS: no JVD Resp: COMMON NORMALS: normal respiratory effort and clear to auscultation bilaterally AUSCULTATION: clear to auscultation bilaterally Cardio: COMMON NORMALS: no JVD, regular rhythm, S1 normal heart sound present, S2 normal heart sound present and No murmurs present (Cardio) RHYTHM: regular rhythm HEART SOUNDS: S1 normal heart sound present and S2 normal heart sound present GI: COMMON NORMALS: Normal to inspection, nondistended, normoactive bowel sounds present, Soft to palpation and non-tender PALPATION: Yes Soft to palpation Extremity: COMMON NORMALS: no joint enlargement GENERAL: Yes edema (Bilateral hand and pedal edema, 1+) Neuro: COMMON NORMALS: patient oriented x3 and moves all extremities SENSORIUM/ORIENTATION: Yes alert Skin: COMMON NORMALS: no rashes or lesions noted GENERAL SKIN EXAM: no rashes or lesions noted Urinary Catheter Management^: Quinn: Cath Placed During This Visit: yes Reason for Continuing Indwelling Catheter: Acute Urinary Retention or Obstruction Urinary Catheter Date of Insertion: 11/05/20 Urinary Catheter Time of Insertion: 20:53 Data : 11/11/20 05:40 11/11/20 05:40 Micro: Microbiology 11/11/20 15:47 Gram Stain - Final Pleural Fluid A&P Assessment and plan (1) Acute respiratory failure with hypoxia: Today has been requiring a bit more oxygen, 4 L, although subjectively is feeling little bit better. She is somewhat anxious. Pleural catheter drained today, yielding 1150 mL. Will drain every other day. Neutropenia appears to have stabilized at 1000 ANC. We will de-escalate antibiotics to Levaquin by mouth. Status: Acute (2) Thrombocytopenia: 1 unit of platelet transfusion requested today. Recheck platelet level. For now only SCD for DVT prophylaxis. Likely chemotherapy related. Status: Acute (3) Neuroendocrine carcinoma metastatic to multiple sites: Discussed with her oncologist. Underwent partial palliative chemotherapy. In case responsive may see some improvement within 2-3 weeks if makes it through the acute episode, at which point consideration may be given to reimaging, possible additional palliative chemotherapy. Discussed with her . He understands that due to diffusely metastatic disease she is at high risk of multiple additional comorbidities that may still occur in between now and then. Discussed with if oxygention continues to improve consideration of additional assessment by MRI brain. Status: Acute (4) Malignant pleural effusion: As above. Status: Acute (5) Normocytic anemia: Hemoglobin responded well to previous transfusion. Monitor. Requested Hemoccult. Status: Acute (6) Hypercalcemia of malignancy: Resolved. Status: Acute Additional A&P Information Anxiety Nicotine addiction Thrush: Continue nystatin Attestations Medical Necessity Statement*: Continue admission for assessment management of severe thrombocytopenia following chemotherapy, chronic transfusion, hypoxic respiratory failure, recurrent pleural effusion in a lady with metastatic malignancy. Coding Level of Care Code Acute Scrap Kettle Tender for [facility] Fwd Diagnoses Acute respiratory failure with hypoxia J96.01 Thrombocytopenia D69.6 Neuroendocrine carcinoma metastatic to multiple sites C7A.8; C7B.8 Malignant pleural effusion J91.0 Normocytic anemia D64.9 Hypercalcemia of malignancy E83.52
[2020-11-11] MEDS: levoFLOXacin 750 mg Tablet PO (21:00)
[2020-11-11 21:17] LABS: Glucose Point of Care 138 mg/dL (70-110)
[2020-11-12] VITALS (15 sets, daily range): BP systolic 110–126; BP diastolic 63–78; PULSE 63–112; RESP 16–70; TEMP 36.4–37.3; O2SAT 94–98
[2020-11-12] MEDS: ALPRAZolam 0.25 mg Tablet 0.125 MG PO (02:16)
[2020-11-12] MEDS: ipratropium-albuterol 3 mL Neb INHALATION ×3 (03:46→21:26)
[2020-11-12 06:10] LABS: Hematocrit 24.5 % (37.0-47.0); Mean Corpuscular HGB Conc 32.7 g/dL (30.0-36.0); Mean Corpuscular Hemoglobin 28.7 pg (28.0-34.0); Mean Corpuscular Volume 87.8 fL (81-99); Mean Platelet Volume 11.3 fL (7.4-10.4); Platelet Count 60 10^3/cmm (130-400); Red Blood Count 2.79 10^6/uL (4.1-5.3); Red Cell Distribution Width 14.8 % (12.1-15.1); White Blood Count 1.7 10^3/uL (4.0-10.0)
[2020-11-12 06:40] LABS: Alanine Aminotransferase 73 U/L (0-33); Albumin Level 2.3 g/dL (3.5-5.2); Alkaline Phosphatase 89 IU/L (35-105); Aspartate Amino Transferase 82 U/L (0-32); Blood Urea Nitrogen 7 mg/dL (6-20); Calcium 7.4 mg/dL (8.5-10.5); Carbon Dioxide 30 mmol/L (22-29); Chloride 102 mmol/L (98-107); Globulin 1.8 g/dL (1.3-4.6); Glomerular Filtration Rate 131.7 mL/min (90-130); Glucose 79 mg/dL (65-115); Osmolality Calculated 285 mOsm/kg (285-295); Sodium 139 mmol/L (136-145); Total Bilirubin 0.8 mg/dL (0.15-1.2); Total Protein 4.1 g/dL (6.6-8.7)
[2020-11-12 07:02] LABS: Glucose Point of Care 89 mg/dL (70-110)
[2020-11-12 07:38] LABS: Slide Review Slide Review Perform
[2020-11-12 07:44] LABS: Absolute Segmented Neutrophil 0.8 10/cmm (1.6-7.1); Band Neutrophils Absolute 0.1 10^3/cmm (0.0-1.2); Eosinophils 2 %; Lymphocytes 49 %; Segmented Neutrophils 45 %; Total Cells Counted 100 (0-100)
[2020-11-12 07:51] LABS: Absolute Neutrophil 0.8 10^3/cmm (1.4-6.5); Platelet Estimate Decreased (Normal)
[2020-11-12] MEDS: sennosides-docusate Tablet 1 TAB PO (10:07)
[2020-11-12] MEDS: famotidine 20 mg/2 mL INJ IVP ×2 (10:08→21:51)
[2020-11-12] MEDS: nystatin 100,000 unit/mL UDC 5 mL 500000 UNIT PO ×2 (10:08→13:20)
[2020-11-12] MEDS: allopurinol 300 mg Tablet PO (10:08)
[2020-11-12] MEDS: FUROsemide 10 mg/mL SDV 2mL 20 MG IVP (10:09)
[2020-11-12 10:30] LABS: Glucose Point of Care 87 mg/dL (70-110)
--- NOTE | 2020-11-12 16:46 | PC.NURSE ---
SHIFT SUMMARY PATIENT HAS DONE WELL TODAY. MINIMAL COMPLAINTS OF PAIN. THIS NURSE CHANGED DRESSING ON SACRUM. EXCELLENT URINE OUTPUT. LABS IMPROVED. PATIENT'S APPETITE HAS INCREASED GREATLY. TOLERATING REGULAR DIET. RESTING WELL ON 4L NC.
[2020-11-12 16:52] LABS: Glucose Point of Care 110 mg/dL (70-110)
[2020-11-12] MEDS: levoFLOXacin 750 mg Tablet PO (20:35)
[2020-11-12 21:28] LABS: Glucose Point of Care 108 mg/dL (70-110)
--- NOTE | 2020-11-12 21:42 | PM.PN ---
Subjective Subjective: Interval history: Today she is feeling little bit better. She is feeling some phlegm kicking around her chest, but is having difficult time bringing it up. Denies headache, no chest pain or pressure. No abdominal pain. visiting in the room. Vitals/I&O/Wt Last Vital Signs Temp 97.9 F 11/12/20 20:00 Pulse 88 11/12/20 21:27 Resp 16 11/12/20 21:27 BP 121/70 11/12/20 20:00 Pulse Ox 98 11/12/20 21:27 11/12/20 11/12/20 11/12/20 06:59 14:59 22:59 Intake Total 700 / 700 Output Total 700 / 3450 1600 / 1600 Balance -700 / -1113 700 / 700 -1600 / -900 Weight last 48 hrs Weight 45.042 kg Weight 44.906 kg Physical Exam Const: COMMON NORMALS: no acute distress, patient oriented x3 and alert GENERAL APPEARANCE: cooperative, comfortable and frail appearing ORIENTATION/CONSCIOUSNESS: Yes awake OTHER: In better spirits today. HENMT: COMMON NORMALS: oropharynx normal Neck/C-Spine: COMMON NORMALS: no JVD Resp: COMMON NORMALS: normal respiratory effort AUSCULTATION: rhonchi Cardio: COMMON NORMALS: no JVD, regular rhythm, S1 normal heart sound present, S2 normal heart sound present and No murmurs present (Cardio) RHYTHM: regular rhythm HEART SOUNDS: S1 normal heart sound present and S2 normal heart sound present GI: COMMON NORMALS: Normal to inspection, nondistended, normoactive bowel sounds present, Soft to palpation and non-tender PALPATION: Yes Soft to palpation Extremity: COMMON NORMALS: no joint enlargement GENERAL: Yes edema (Bilateral hand and pedal edema, 1+) Neuro: COMMON NORMALS: patient oriented x3 and moves all extremities SENSORIUM/ORIENTATION: Yes alert Skin: COMMON NORMALS: no rashes or lesions noted GENERAL SKIN EXAM: no rashes or lesions noted Urinary Catheter Management^: Quinn: Cath Placed During This Visit: yes Reason for Continuing Indwelling Catheter: Acute Urinary Retention or Obstruction Urinary Catheter Date of Insertion: 11/05/20 Urinary Catheter Time of Insertion: 20:53 Data : 11/12/20 05:49 11/12/20 05:49 Micro: Microbiology 11/11/20 15:47 Gram Stain - Final Pleural Fluid A&P Assessment and plan (1) Acute respiratory failure with hypoxia: Hypoxia somewhat persists. Will again be draining pleural catheter tomorrow. Discussed with her to continue draining every other day at home, unless instructed otherwise on follow-up. She is having some rhonchi today. She is trying to cough up some chest congestion but is having difficult time. We will add Mucinex. Flutter valve. Continue Levaquin. Continue attempts to wean off oxygen. We will repeat chest x-ray after draining pleural fluid tomorrow. Neutropenia worse, ANC 800. Continue Levaquin for now. If counts stabilize, oxygenation improving, may be looking at discharge possibly even tomorrow. Will need oxygen at discharge. Status: Acute (2) Thrombocytopenia: Responded well to PLT transfusion. For now only SCD for DVT prophylaxis. Likely chemotherapy related. Status: Acute (3) Neuroendocrine carcinoma metastatic to multiple sites: Discussed with her oncologist. Underwent partial palliative chemotherapy. In case responsive may see some improvement within 2-3 weeks if makes it through the acute episode, at which point consideration may be given to reimaging, possible additional palliative chemotherapy. Discussed with her . He understands that due to diffusely metastatic disease she is at high risk of multiple additional comorbidities that may still occur in between now and then. Discussed with if oxygention continues to improve consideration of additional assessment by MRI brain. Status: Acute (4) Malignant pleural effusion: As above. Status: Acute (5) Normocytic anemia: Hemoglobin responded well to previous transfusion. Monitor. Requested Hemoccult. Status: Acute (6) Hypercalcemia of malignancy: Resolved. Status: Acute Additional A&P Information Anxiety Nicotine addiction Thrush: Continue nystatin Attestations Medical Necessity Statement*: Continue admission for assessment management of pancytopenia, hypoxia, in the setting of extensive metastatic neoplastic burden, disposition arrangements. Coding Level of Care Code Acute Education Department Chair for [facility] Fwd Exam Comprehensive Diagnoses Acute respiratory failure with hypoxia J96.01 Thrombocytopenia D69.6 Neuroendocrine carcinoma metastatic to multiple sites C7A.8; C7B.8 Malignant pleural effusion J91.0 Normocytic anemia D64.9 Hypercalcemia of malignancy E83.52
[2020-11-13] VITALS (13 sets, daily range): BP systolic 94–165; BP diastolic 57–80; PULSE 95–101; RESP 17–20; TEMP 36.4–37.2; O2SAT 92–98
[2020-11-13] MEDS: ipratropium-albuterol 3 mL Neb INHALATION ×2 (02:42→08:13)
[2020-11-13 06:21] LABS: Basophils % 1.2 %; Eosinophils % 1.2 %; Hematocrit 27.2 % (37.0-47.0); Hemoglobin 8.9 g/dL (11.5-15.3); Lymphocytes # 0.8 10^3/uL (0.8-4.8); Mean Corpuscular HGB Conc 32.7 g/dL (30.0-36.0); Mean Corpuscular Hemoglobin 28.6 pg (28.0-34.0); Mean Corpuscular Volume 87.5 fL (81-99); Mean Platelet Volume 11.1 fL (7.4-10.4); Monocytes # 0.2 10^3/uL (0.2-0.9); Monocytes % 10.1 %; Nucleated Red Blood Cells % 1.8 %; Platelet Count 39 10^3/cmm (130-400); Red Blood Count 3.11 10^6/uL (4.1-5.3); Red Cell Distribution Width 14.9 % (12.1-15.1); White Blood Count 1.7 10^3/uL (4.0-10.0)
[2020-11-13 06:49] LABS: Glucose Point of Care 94 mg/dL (70-110)
[2020-11-13 07:13] LABS: Alanine Aminotransferase 65 U/L (0-33); Albumin Level 2.4 g/dL (3.5-5.2); Alkaline Phosphatase 107 IU/L (35-105); Anion Gap 11.8 (5-19); Aspartate Amino Transferase 68 U/L (0-32); Blood Urea Nitrogen 9 mg/dL (6-20); Calcium 7.3 mg/dL (8.5-10.5); Carbon Dioxide 30 mmol/L (22-29); Chloride 102 mmol/L (98-107); Globulin 1.7 g/dL (1.3-4.6); Glucose 77 mg/dL (65-115); Osmolality Calculated 289 mOsm/kg (285-295); Sodium 141 mmol/L (136-145); Total Bilirubin 0.6 mg/dL (0.15-1.2); Total Protein 4.1 g/dL (6.6-8.7)
[2020-11-13 07:42] LABS: Glomerular Filtration Rate 843.6 mL/min (90-130)
[2020-11-13 07:43] LABS: Potassium 2.8 mmol/L (3.5-5.1)
[2020-11-13] MEDS: guaiFENesin 600 mg Tablet PO ×2 (08:13→18:04)
[2020-11-13] MEDS: famotidine 20 mg/2 mL INJ IVP ×2 (08:13→21:28)
[2020-11-13] MEDS: FUROsemide 10 mg/mL SDV 2mL 20 MG IVP (08:14)
[2020-11-13] MEDS: sennosides-docusate Tablet 1 TAB PO (08:14)
[2020-11-13] MEDS: allopurinol 300 mg Tablet PO (08:14)
[2020-11-13 08:53] LABS: Magnesium 1.4 mg/dL (1.7-2.3)
[2020-11-13 09:07] LABS: Neutrophils % 40.5 %
[2020-11-13 09:08] LABS: Slide Review Slide Review Perform
[2020-11-13 09:09] LABS: Neutrophils # 0.42 10^3/uL (1.8-7.7)
[2020-11-13] MEDS: potassium chloride ER 20 mEq Tablet 40 MEQ PO (09:42)
[2020-11-13] MEDS: NON-FORMULARY MEDICATION (Tiotropium-Olodaterol [Stiolto Respimat] 2.5-2.5 mcg/actuation m 2 EACH INHALATION (09:42)
[2020-11-13 12:21] LABS: Glucose Point of Care 96 mg/dL (70-110)
[2020-11-13] MEDS: simethicone 80 mg Chew 40 MG PO (14:30)
[2020-11-13] MEDS: magnesium sulfate premix 2 GM/50 ML PIGGYBACK IV (14:40)
--- NOTE | 2020-11-13 14:45 | PC.NURSE ---
PATIENT'S AT BEDSIDE. PATIENT TOLD THAT SHE IS EXCITED TO GO HOME TODAY; I INFORMED PATIENT THAT WE DO NOT CURRENTLY HAVE DISCHARGE ORDERS, AND I HAVE NOT BEEN TOLD THAT SHE WILL BE GOING HOME. PATIENT IS VISIBLY UPSET BUT IS UNDERSTANDING.
[2020-11-13] MEDS: piperacillin-tazobactam 3.375 GM in sodium chloride 0.9% (plus) 50 ML IV ×2 (16:01→22:49)
--- NOTE | 2020-11-13 16:43 | PC.NURSE ---
PATIENT IN BED RESTING AT THIS TIME.
[2020-11-13 17:17] LABS: Glucose Point of Care 123 mg/dL (70-110)
--- NOTE | 2020-11-13 19:54 | P.PN_ITS ---
Subjective Subjective: Interval history: She is overall doing a bit better today. She is coughing up less phlegm. Breathing little bit easier. Was looking forward to already returning home today. Vitals/I&O/Wt Last Vital Signs Temp 97.6 F 11/13/20 19:18 Pulse 100 11/13/20 19:18 Resp 17 11/13/20 19:18 BP 94/57 11/13/20 19:18 Pulse Ox 94 11/13/20 19:18 11/13/20 11/13/20 11/13/20 06:59 14:59 22:59 Intake Total 120 / 120 50 / 170 Output Total 700 / 2300 1150 / 1150 Balance -700 / -1600 120 / 120 -1100 / -980 Weight last 48 hrs Weight 45.45 kg Weight 45.042 kg Physical Exam Const: COMMON NORMALS: no acute distress, patient oriented x3 and alert GENERAL APPEARANCE: cooperative, comfortable and frail appearing ORIENTATION/CONSCIOUSNESS: Yes awake HENMT: COMMON NORMALS: oropharynx normal Neck/C-Spine: COMMON NORMALS: no JVD Resp: COMMON NORMALS: normal respiratory effort AUSCULTATION: rhonchi and diminished lung sounds on the right in the lower lung montaño Cardio: COMMON NORMALS: no JVD, regular rhythm, S1 normal heart sound present, S2 normal heart sound present and No murmurs present (Cardio) RHYTHM: regular rhythm HEART SOUNDS: S1 normal heart sound present and S2 normal heart sound present GI: COMMON NORMALS: Normal to inspection, nondistended, normoactive bowel sounds present, Soft to palpation and non-tender PALPATION: Yes Soft to palpation Extremity: COMMON NORMALS: no joint enlargement GENERAL: Yes edema (Bilateral hand and pedal edema, 1+) Neuro: COMMON NORMALS: patient oriented x3 and moves all extremities SENSORIUM/ORIENTATION: Yes alert Skin: COMMON NORMALS: no rashes or lesions noted GENERAL SKIN EXAM: no rashes or lesions noted Urinary Catheter Management^: Quinn: Cath Placed During This Visit: yes Reason for Continuing Indwelling Catheter: Other Urinary Catheter Date of Insertion: 11/05/20 Urinary Catheter Time of Insertion: 20:53 Data : 11/13/20 05:13 11/13/20 05:13 Micro: Microbiology 11/11/20 15:47 Gram Stain - Final Pleural Fluid Body Fluid Culture - Preliminary A&P Assessment and plan (1) Pancytopenia: Discussed with her edge trimmer mechanic. ANC down further today to 420. Hemoglobin appears relatively stable. Platelets with decreased down to 39,000. For now no additional transfusion, monitor. She had received Neulasta, for now per discussion with with Dr. Alberts we will additionally monitor counts. Per request expand antibiotic coverage, will switch to Zosyn. Add antifungal coverage. Continue to monitor in the hospital. Transfuse as needed. Status: Acute (2) Acute respiratory failure with hypoxia: Antibiotic change as above to Zosyn. Bit less phlegm production today. Drain pleural fluid every other day. Flutter valve. Mucinex. Continue attempts to wean off oxygen. We will repeat chest x-ray after draining pleural fluid tomorrow. If counts stabilize, oxygenation improving, may be looking at discharge. Will likely need oxygen at discharge. Status: Acute (3) Thrombocytopenia: As above. For now only SCD for DVT prophylaxis. Likely chemotherapy related. Status: Acute (4) Neuroendocrine carcinoma metastatic to multiple sites: Discussed with her oncologist. Underwent partial palliative chemotherapy. In case responsive may see some improvement within 2-3 weeks if makes it through the acute episode, at which point consideration may be given to reimaging, possible additional palliative chemotherapy. Discussed with her . He understands that due to diffusely metastatic disease she is at high risk of multiple additional comorbidities that may still occur in between now and then. Discussed with oncology, MRI brain on outpatient basis. Status: Acute (5) Malignant pleural effusion: As above. Status: Acute (6) Normocytic anemia: Hemoglobin responded well to previous transfusion. Monitor. Requested Hemoccult. Status: Acute (7) Hypercalcemia of malignancy: Resolved. Status: Acute Additional A&P Information Anxiety Nicotine addiction Thrush: For now switched to Diflucan. Attestations Medical Necessity Statement*: Continue admission for assessment management of pancytopenia in the setting of metastatic malignancy, hypoxic respiratory failure. Coding Level of Care Code Acute Web Production Assistant for Gee Richmond Diagnoses Pancytopenia D61.818 Acute respiratory failure with hypoxia J96.01 Thrombocytopenia D69.6 Neuroendocrine carcinoma metastatic to multiple sites C7A.8; C7B.8 Malignant pleural effusion J91.0 Normocytic anemia D64.9 Hypercalcemia of malignancy E83.52
[2020-11-13 20:57] LABS: Glucose Point of Care 123 mg/dL (70-110)
[2020-11-13] MEDS: fluconazole premix 400 MG/200 ML PIGGYBACK 200 MG IV (21:36)
[2020-11-14] VITALS (10 sets, daily range): BP systolic 101–119; BP diastolic 61–73; PULSE 87–107; RESP 14–20; TEMP 36.4–36.6; O2SAT 96–97
[2020-11-14] MEDS: piperacillin-tazobactam 3.375 GM in sodium chloride 0.9% (plus) 50 ML IV ×3 (06:06→23:58)
[2020-11-14 06:11] LABS: Alanine Aminotransferase 57 U/L (0-33); Albumin Level 2.4 g/dL (3.5-5.2); Alkaline Phosphatase 119 IU/L (35-105); Aspartate Amino Transferase 58 U/L (0-32); Blood Urea Nitrogen 10 mg/dL (6-20); Calcium 7.2 mg/dL (8.5-10.5); Carbon Dioxide 30 mmol/L (22-29); Chloride 101 mmol/L (98-107); Globulin 1.8 g/dL (1.3-4.6); Glucose 76 mg/dL (65-115); Osmolality Calculated 284 mOsm/kg (285-295); Sodium 138 mmol/L (136-145); Total Bilirubin 0.7 mg/dL (0.15-1.2); Total Protein 4.2 g/dL (6.6-8.7)
[2020-11-14 06:14] LABS: Basophils % 0.9 %; Eosinophils % 0.4 %; Hematocrit 25.6 % (37.0-47.0); Hemoglobin 8.3 g/dL (11.5-15.3); Lymphocytes # 0.9 10^3/uL (0.8-4.8); Lymphocytes % 41.4 %; Mean Corpuscular HGB Conc 32.4 g/dL (30.0-36.0); Mean Corpuscular Hemoglobin 28.8 pg (28.0-34.0); Mean Corpuscular Volume 88.9 fL (81-99); Mean Platelet Volume 11.4 fL (7.4-10.4); Monocytes # 0.3 10^3/uL (0.2-0.9); Neutrophils % 38.4 %; Nucleated Red Blood Cells % 1.8 %; Red Blood Count 2.88 10^6/uL (4.1-5.3); Red Cell Distribution Width 15.1 % (12.1-15.1); White Blood Count 2.3 10^3/uL (4.0-10.0)
[2020-11-14 06:21] LABS: Glomerular Filtration Rate 843.6 mL/min (90-130)
[2020-11-14 06:22] LABS: Neutrophils # 0.87 10^3/uL (1.8-7.7); Platelet Count 27 10^3/cmm (130-400)
[2020-11-14 06:40] LABS: Glucose Point of Care 108 mg/dL (70-110)
[2020-11-14 11:17] LABS: Glucose Point of Care 87 mg/dL (70-110)
--- NOTE | 2020-11-14 12:07 | XRR_ITS ---
PROCEDURE INFORMATION: Exam: XR Chest, 1 View Exam date and time: 11/14/2020 12:14 PM Age: 50 years old Clinical indication: Device placement; Other: Post drain; Prior surgery TECHNIQUE: Imaging protocol: XR of the chest Views: 1 view. COMPARISON: CR XR chest 1V portable [id number] 11/09/2020 5:55 AM FINDINGS: Tubes, catheters and devices: A right central line is seen extending to the SVC Lungs: Stable parenchymal densities are seen in the right upper lobe the lungs are otherwise clear Pleural spaces: Unremarkable. No pleural effusion. No pneumothorax. Heart/Mediastinum: Unremarkable. No cardiomegaly. Bones/joints: Unremarkable. XR/XR chest 1V portable [id number] IMPRESSION: 1. Stable parenchymal density right upper lobe 2. Right central line is in the SVC. 3. Otherwise negative examination
[2020-11-14] MEDS: morphine 4 mg/mL SDV 1 mL 1 MG IVP (16:13)
[2020-11-14 18:35] LABS: Glucose Point of Care 170 mg/dL (70-110)
--- NOTE | 2020-11-14 19:48 | P.PN_ITS ---
Subjective Subjective: Interval history: She is resting after having pleural fluid drained. Less fluid was drained today. She has been overall gradually showing some improvement in regaining some strength. Vitals/I&O/Wt Last Vital Signs Temp 97.8 F 11/14/20 19:21 Pulse 107 H 11/14/20 19:21 Resp 20 H 11/14/20 19:21 BP 117/70 11/14/20 19:21 Pulse Ox 97 11/14/20 19:21 11/14/20 11/14/20 11/14/20 06:59 14:59 22:59 Intake Total 50 / 590 50 / 50 Output Total 200 / 1350 Balance -150 / -760 50 / 50 Weight last 48 hrs Weight 40.098 kg Weight 45.45 kg Physical Exam Const: COMMON NORMALS: no acute distress, patient oriented x3 and alert GENERAL APPEARANCE: cooperative, comfortable and frail appearing ORIENTATION/CONSCIOUSNESS: Yes awake OTHER: In better spirits today. HENMT: COMMON NORMALS: oropharynx normal Neck/C-Spine: COMMON NORMALS: no JVD Resp: COMMON NORMALS: normal respiratory effort AUSCULTATION: rhonchi and diminished lung sounds on the right in the lower lung montaño Cardio: COMMON NORMALS: no JVD, regular rhythm, S1 normal heart sound present, S2 normal heart sound present and No murmurs present (Cardio) RHYTHM: regular rhythm HEART SOUNDS: S1 normal heart sound present and S2 normal heart sound present GI: COMMON NORMALS: Normal to inspection, nondistended, normoactive bowel sounds present, Soft to palpation and non-tender PALPATION: Yes Soft to palpation Extremity: COMMON NORMALS: no joint enlargement GENERAL: Yes edema (Bilateral hand and pedal edema, 1+) Neuro: COMMON NORMALS: patient oriented x3 and moves all extremities SENSORIUM/ORIENTATION: Yes alert Skin: COMMON NORMALS: no rashes or lesions noted GENERAL SKIN EXAM: no rashes or lesions noted Urinary Catheter Management^: Quinn: Cath Placed During This Visit: yes, but has since been removed by the nurse Reason for Continuing Indwelling Catheter: Decision to DC Catheter Urinary Catheter Date of Insertion: 11/05/20 Urinary Catheter Time of Insertion: 20:53 Date Urinary Catheter Removed: 11/14/20 Time Urinary Catheter Discontinued: 01:44 Data : 11/14/20 05:16 11/14/20 05:16 Micro: Microbiology 11/11/20 15:47 Gram Stain - Final Pleural Fluid Body Fluid Culture - Preliminary 11/13/20 07:44 Occult Blood (FIT) - Final Stool Routine Collection A&P Assessment and plan (1) Pancytopenia: Today neutrophil count is actually up to 870. Appears perhaps she may be reaching a terrance of pancytopenia. Platelets are, however, lower at 27,000. Additional monitoring today given severe thrombocytopenia, with risk of decrease in 2 zone of spontaneous bleeding. May require transfusion if additional platelet level decrease. She had received Neulasta, for now per discussion with with Dr. Alberts we will additionally monitor counts. Per request expand antibiotic coverage, will switch to Zosyn. Added diflucan. Continue to monitor in the hospital. Transfuse as needed. Status: Acute (2) Acute respiratory failure with hypoxia: Pleural catheter drained today. Repeated chest x-ray. Stable parenchymal density in the right upper lobe. No other focal infiltrate or consolidation noted. Continue Zosyn. Bit less phlegm production today. Drain pleural fluid every other day. Flutter valve. Mucinex. Continue attempts to wean off oxygen as tolerating. He is likely going to need oxygen at discharge. Will need home O2 evaluation. If counts stabilize, oxygenation improving, may be looking at discharge within the next 1-2 days. Status: Acute (3) Thrombocytopenia: As above. For now only SCD for DVT prophylaxis. Likely chemotherapy related. Status: Acute (4) Neuroendocrine carcinoma metastatic to multiple sites: Discussed with her oncologist. Underwent partial palliative chemotherapy. In case responsive may see some improvement within 2-3 weeks if makes it through the acute episode, at which point consideration may be given to reimaging, possible additional palliative chemotherapy. Discussed with her . He understands that due to diffusely metastatic disease she is at high risk of multiple additional comorbidities that may still occur in between now and then. Discussed with oncology, MRI brain on outpatient basis. Status: Acute (5) Malignant pleural effusion: As above. Status: Acute (6) Normocytic anemia: Hemoglobin responded well to previous transfusion. Monitor. Requested Hemoccult. Status: Acute (7) Hypercalcemia of malignancy: Resolved. Status: Acute Additional A&P Information Anxiety Nicotine addiction Thrush: For now switched to Diflucan. Attestations Medical Necessity Statement*: Continue admission for assessment management of pancytopenia following chemotherapy for metastatic lung cancer, with severe thrombocytopenia, acute respiratory failure with hypoxia, discharge planning and arrangements. Coding Level of Care Code Acute Community Service Organization Director for g [employer] Diagnoses Pancytopenia D61.818 Acute respiratory failure with hypoxia J96.01 Thrombocytopenia D69.6 Neuroendocrine carcinoma metastatic to multiple sites C7A.8; C7B.8 Malignant pleural effusion J91.0 Normocytic anemia D64.9 Hypercalcemia of malignancy E83.52
[2020-11-14 21:01] LABS: Glucose Point of Care 186 mg/dL (70-110)
[2020-11-14] MEDS: famotidine 20 mg/2 mL INJ IVP (21:46)
[2020-11-14] MEDS: fluconazole premix 400 MG/200 ML PIGGYBACK 200 MG IV (21:48)
[2020-11-14] MEDS: sennosides 8.6 mg Tablet 17.2 MG PO (21:54)
[2020-11-15] VITALS (16 sets, daily range): BP systolic 105–134; BP diastolic 63–81; PULSE 85–117; RESP 17–20; TEMP 36.5–36.9; O2SAT 92–99
[2020-11-15 06:32] LABS: Hematocrit 23.2 % (37.0-47.0); Hemoglobin 7.4 g/dL (11.5-15.3); Mean Corpuscular HGB Conc 31.9 g/dL (30.0-36.0); Mean Corpuscular Hemoglobin 28.8 pg (28.0-34.0); Mean Corpuscular Volume 90.3 fL (81-99); Mean Platelet Volume 12.3 fL (7.4-10.4); Red Blood Count 2.57 10^6/uL (4.1-5.3); Red Cell Distribution Width 15.3 % (12.1-15.1); White Blood Count 4.1 10^3/uL (4.0-10.0)
[2020-11-15] MEDS: piperacillin-tazobactam 3.375 GM in sodium chloride 0.9% (plus) 50 ML IV ×2 (06:41→15:14)
[2020-11-15 06:52] LABS: Glucose Point of Care 82 mg/dL (70-110)
[2020-11-15 06:56] LABS: Alanine Aminotransferase 50 U/L (0-33); Albumin Level 2.4 g/dL (3.5-5.2); Alkaline Phosphatase 128 IU/L (35-105); Anion Gap 11.6 (5-19); Aspartate Amino Transferase 47 U/L (0-32); Blood Urea Nitrogen 7 mg/dL (6-20); Calcium 7.2 mg/dL (8.5-10.5); Carbon Dioxide 31 mmol/L (22-29); Chloride 100 mmol/L (98-107); Globulin 1.8 g/dL (1.3-4.6); Glucose 65 mg/dL (65-115); Osmolality Calculated 286 mOsm/kg (285-295); Sodium 140 mmol/L (136-145); Total Bilirubin 0.4 mg/dL (0.15-1.2); Total Protein 4.2 g/dL (6.6-8.7)
[2020-11-15 07:20] LABS: Glomerular Filtration Rate 843.6 mL/min (90-130)
[2020-11-15 07:22] LABS: Potassium 2.6 mmol/L (3.5-5.1)
[2020-11-15 07:31] LABS: Slide Review Slide Review Perform
[2020-11-15 07:34] LABS: Platelet Count 20 10^3/cmm (130-400)
[2020-11-15 07:46] LABS: Absolute Segmented Neutrophil 1.5 10/cmm (1.6-7.1); Anisocytosis 1+; Band Neutrophils Absolute 0.4 10^3/cmm (0.0-1.2); Corrected White Blood Count 3.9 10^3/cmm (4.8-10.8); Hypochromasia 1+; Lymphocytes 45 %; Monocytes Absolute 0.1 10^3/cmm (0.1-0.6); Poikilocytosis 1+; Segmented Neutrophils 36 %; Total Cells Counted 100 (0-100)
[2020-11-15 07:47] LABS: Absolute Neutrophil 1.8 10^3/cmm (1.4-6.5); Eosinophils 0 %; Ovalocytes Trace; Platelet Estimate Decreased (Normal); Smudge Cells 1+
[2020-11-15] MEDS: ipratropium-albuterol 3 mL Neb INHALATION ×3 (08:21→20:14)
[2020-11-15 08:44] LABS: Magnesium 1.6 mg/dL (1.7-2.3)
[2020-11-15] MEDS: allopurinol 300 mg Tablet PO (08:44)
[2020-11-15] MEDS: guaiFENesin 600 mg Tablet PO ×2 (08:44→18:05)
[2020-11-15] MEDS: sennosides-docusate Tablet 1 TAB PO (08:44)
[2020-11-15] MEDS: potassium chloride oral liq 20 mEq/15 mL UDC 40 MEQ PO (09:08)
[2020-11-15] MEDS: pantoprazole DR 40 mg Tablet PO (09:10)
[2020-11-15] MEDS: FUROsemide 10 mg/mL SDV 2mL 20 MG IVP (10:39)
[2020-11-15] MEDS: lidocaine 1% 5 ML in potassium chloride premix 100 ML 25 ML IV (10:40)
[2020-11-15 11:36] LABS: Glucose Point of Care 144 mg/dL (70-110)
[2020-11-15 16:50] LABS: Glucose Point of Care 155 mg/dL (70-110)
[2020-11-15] MEDS: magnesium sulfate premix 4 GM/100 ML PREMIX IV (18:05)
--- NOTE | 2020-11-15 20:05 | P.PN_ITS ---
Subjective Subjective: Interval history: Patient seen sitting in chair sitting next to her. does the majority of the talking. He is frustrated and disgruntled. He is making a lot of comments about her care. He states that he wants to take her home and he can carry her and provide for her needs. He is now concerned about the wound on her coccyx. And request assistance with this. He asked about pain medication to which she is does not want anything stronger than Motrin and Tylenol. The patient agrees to scheduled liquid ibuprofen. And as needed Tylenol. Another concern raised was that of her blood sugars. She was placed on sliding scale insulin while she was in the ICU. I have discontinued this. Medications: Reviewed: Yes Vitals/I&O/Wt Last Vital Signs Temp 98.4 F 11/15/20 19:43 Pulse 105 H 11/15/20 19:43 Resp 17 11/15/20 19:43 BP 105/63 11/15/20 19:43 Pulse Ox 95 11/15/20 19:43 11/15/20 11/15/20 11/15/20 06:59 14:59 22:59 Intake Total 290 / 1070 110 / 110 105 / 215 Output Total 400 / 400 Balance 290 / 1070 110 / 110 -295 / -185 Weight last 48 hrs Weight 39.553 kg Weight 40.098 kg Physical Exam Const: COMMON NORMALS: no acute distress GENERAL APPEARANCE: cooperative, anxious and appears older than stated age NUTRITIONAL APPEARANCE: cachectic ORIENTATION/CONSCIOUSNESS: Yes awake, Yes oriented to person, Yes oriented to place and Yes oriented to time Neck/C-Spine: COMMON NORMALS: no JVD Resp: COMMON NORMALS: normal respiratory effort and clear to auscultation bilaterally AUSCULTATION: clear to auscultation bilaterally Cardio: COMMON NORMALS: no JVD, regular rate, regular rhythm, S1 normal heart sound present, S2 normal heart sound present, No gallops present (Cardio), No clicks present (Cardio) and No murmurs present (Cardio) RATE: regular rate RHYTHM: regular rhythm HEART SOUNDS: S1 normal heart sound present and S2 normal heart sound present GI: COMMON NORMALS: Normal to inspection, nondistended, normoactive bowel christina nds present, Soft to palpation and non-tender PALPATION: Yes Soft to palpation Extremity: COMMON NORMALS: no clubbing, cyanosis or edema and no calf tenderness Neuro: SENSORIUM/ORIENTATION: Yes oriented to person, Yes oriented to place and Yes oriented to time Skin: WOUNDS: Yes wounds noted size (6 x 6 cm approximately on the coccyx) and drainage bloody Urinary Catheter Management^: Quinn: Cath Placed During This Visit: yes, but has since been removed by the nurse Reason for Continuing Indwelling Catheter: Decision to DC Catheter Urinary Catheter Date of Insertion: 11/05/20 Urinary Catheter Time of Insertion: 20:53 Date Urinary Catheter Removed: 11/14/20 Time Urinary Catheter Discontinued: 01:44 Data : 11/15/20 05:13 11/15/20 05:13 Micro: Microbiology 11/11/20 15:47 Gram Stain - Final Pleural Fluid Body Fluid Culture - Final A&P Assessment and plan (1) Pancytopenia: Status post chemotherapy. White blood cell count and absolute neutral site count improved. Anemia and thrombocytopenia stable. Status: Acute (2) Malignant pleural effusion: Patient has catheter in place and the pleural effusion is drained every other day. Status: Acute (3) Port-A-Cath in place: Status: Acute (4) Neuroendocrine carcinoma metastatic to multiple sites: Patient underwent first chemotherapy treatment while in hospital. Patient and are talking about the future. states that she needs to gain weight and get stronger to tolerate therapy. Status: Acute (5) Pleural effusion: As above this is malignant and requires frequent drainage. Status: Acute (6) Nicotine addiction: Stable at this time Status: Acute (7) Anxiety: Patient self reports anxiety but does not want to take much medication for this. Status: Acute (8) Pain: We will schedule liquid Motrin per her request and add liquid Tylenol as needed. Status: Acute (9) Hypokalemia: Patient was given total of 80 mEq today 40 mEq IV and 40 orally. Awaiting results of BMP ordered this evening. Status: Acute (10) Hypomagnesemia: Patient given 4 mg IV. Status: Acute (11) Decubitus ulcer: Will order wound care if that is available here. Otherwise wound care per RN. Status: Acute Attestations Medical Necessity Statement*: Patient with severe hypokalemia and hypomagnesemia. Coding Level of Care Code Acute Makeup Instructor for Gee Richmond Diagnoses Pancytopenia D61.818 Malignant pleural effusion J91.0 Port-A-Cath in place Z95.828 Neuroendocrine carcinoma metastatic to multiple sites C7A.8; C7B.8 Pleural effusion J90 Nicotine addiction F17.200 Anxiety F41.9 Pain R52 Hypokalemia E87.6 Hypomagnesemia E83.42 Decubitus ulcer L89.90
[2020-11-15 20:11] LABS: Anion Gap 16.6 (5-19); Blood Urea Nitrogen 6 mg/dL (6-20); Calcium 7.4 mg/dL (8.5-10.5); Carbon Dioxide 26 mmol/L (22-29); Chloride 95 mmol/L (98-107); Glomerular Filtration Rate 379.1 mL/min (90-130); Glucose 155 mg/dL (65-115); Osmolality Calculated 279 mOsm/kg (285-295); Potassium 3.6 mmol/L (3.5-5.1); Sodium 134 mmol/L (136-145)
[2020-11-15] MEDS: fluconazole premix 400 MG/200 ML PIGGYBACK 200 MG IV (20:17)
[2020-11-15 21:29] LABS: Glucose Point of Care 152 mg/dL (70-110)
[2020-11-16] VITALS (11 sets, daily range): BP systolic 95–101; BP diastolic 56–62; PULSE 97–116; RESP 16–24; TEMP 36.6–36.8; O2SAT 88–96
[2020-11-16] MEDS: piperacillin-tazobactam 3.375 GM in sodium chloride 0.9% (plus) 50 ML IV ×2 (00:12→06:11)
[2020-11-16] MEDS: ibuprofen Oral Susp 100 mg/5mL UDC 400 MG PO ×3 (00:13→16:07)
[2020-11-16 06:09] LABS: Basophils % 0.1 %; Eosinophils % 0.4 %; Lymphocytes # 1.5 10^3/uL (0.8-4.8); Lymphocytes % 21.4 %; Mean Corpuscular HGB Conc 31.8 g/dL (30.0-36.0); Mean Corpuscular Hemoglobin 28.9 pg (28.0-34.0); Mean Corpuscular Volume 90.9 fL (81-99); Mean Platelet Volume 11.4 fL (7.4-10.4); Monocytes # 0.6 10^3/uL (0.2-0.9); Monocytes % 8.2 %; Neutrophils % 54.2 %; Nucleated Red Blood Cells # 0.1 /100WBC; Red Blood Count 2.42 10^6/uL (4.1-5.3); Red Cell Distribution Width 15.5 % (12.1-15.1); White Blood Count 7.2 10^3/uL (4.0-10.0)
[2020-11-16 06:34] LABS: Alanine Aminotransferase 49 U/L (0-33); Albumin Level 2.3 g/dL (3.5-5.2); Alkaline Phosphatase 162 IU/L (35-105); Anion Gap 12.2 (5-19); Aspartate Amino Transferase 45 U/L (0-32); Blood Urea Nitrogen 5 mg/dL (6-20); Calcium 7.2 mg/dL (8.5-10.5); Carbon Dioxide 31 mmol/L (22-29); Chloride 98 mmol/L (98-107); Globulin 2.1 g/dL (1.3-4.6); Glomerular Filtration Rate 379.1 mL/min (90-130); Glucose 77 mg/dL (65-115); Osmolality Calculated 282 mOsm/kg (285-295); Potassium 3.2 mmol/L (3.5-5.1); Sodium 138 mmol/L (136-145); Total Bilirubin 0.4 mg/dL (0.15-1.2); Total Protein 4.4 g/dL (6.6-8.7)
[2020-11-16 06:37] LABS: Platelet Count 16 10^3/cmm (130-400); Slide Review Slide Review Perform
[2020-11-16 06:52] LABS: Glucose Point of Care 89 mg/dL (70-110)
--- NOTE | 2020-11-16 07:15 | PC.NURSE ---
Critical platelet count came back with patient's morning labs with a level of 16. Dr. Nicolas notified via phone call. Physician did not wish to transfuse platelets at this time. Potassium levels were discussed with physician as well. Potassium level this morning was 3.2. Per Dr. Nicolas patient needs to have her scheduled 40 meq PO liquid potassium this morning as well as another 40 meq K-rider with lidocaine added. Physician also wanted to discontinue Lasix 20 mg IV. All orders read back for accuracy and entered into computer per physician's request.
[2020-11-16] MEDS: guaiFENesin 600 mg Tablet PO (08:30)
[2020-11-16] MEDS: pantoprazole DR 40 mg Tablet PO (08:30)
[2020-11-16] MEDS: potassium chloride oral liq 20 mEq/15 mL UDC 40 MEQ PO (08:30)
[2020-11-16] MEDS: sennosides-docusate Tablet 1 TAB PO (08:30)
[2020-11-16] MEDS: allopurinol 300 mg Tablet PO (08:30)
[2020-11-16] MEDS: lidocaine 1% 5 ML in potassium chloride premix 100 ML 25 ML IV (10:17)
--- NOTE | 2020-11-16 10:32 | PC.NURSE ---
Pleural Drainage Procedure performed. Patient laying supine in bed. Dressing to amanuel drain tubing removed with small amount of drainage noted to dressing. Drain canister connected to patient and tubing unclamped. Good flow of pleural fluid noted to be serosanguenous in color. Patient became uncomfortable after 750 ml of fluid had been removed. Tubing kinked and Patient agreed to try to reposition and see if more fluid could be drained. Patient tilted body to left side and tubing was unclamped. More fluid that was noted to be more serous noted to start to drain slowly and patient yelled out in discomfort. Tubing kinked and drain canister disconnected with 750 mL as final drain amount. New dressing applied to drain site.
[2020-11-16 11:56] LABS: Glucose Point of Care 113 mg/dL (70-110)
[2020-11-16] MEDS: ipratropium-albuterol 3 mL Neb INHALATION (14:52)
--- NOTE | 2020-11-16 16:50 | PM.DCS ---
Discharge Providers Date of Admission: 11/01/20 16:31 Date of Discharge: November 16, 2020 Attending Provider at Admission: Dariel Delgado MD Attending Provider at Discharge: Marek Nicolas DO Primary Care Provider: Ashley Jennings Diagnoses at Discharge Discharge Diagnosis (1) Pancytopenia: Status: Acute (2) Malignant pleural effusion: Status: Acute (3) Port-A-Cath in place: Status: Acute (4) Neuroendocrine carcinoma metastatic to multiple sites: Status: Acute (5) Pleural effusion: Status: Acute (6) Nicotine addiction: Status: Acute (7) Anxiety: Status: Acute (8) Pain: Status: Acute (9) Hypokalemia: Status: Acute (10) Hypomagnesemia: Status: Acute (11) Decubitus ulcer: Status: Acute Reason for Visit Reason for Visit: cannot eat/drink, groggy feeling Hospital Course Hospital Course Mrs. Coffman is a 50-year-old white female with widely metastatic neuroendocrine lung malignancy who presented with gradual shortness of breath and right-sided chest pain. She was found to have a large right-sided pleural effusion related to the malignancy. Is extremely dehydrated and had hpercalcemia. Patient was treated with IV fluids. She was placed on antibiotics. Eventually she had a port placed in the right pleural space for periodic drainage of malignant pleural effusion. Patient received chemotherapy as an inpatient. She subsequently became pancytopenic and was placed in neutropenic precautions. She eventually recovered from this. Subsequently she suffered with severe electrolyte deficiencies and needed to be replaced over multiple days. This included magnesium and potassium replacement. Patient is very weak and debilitated. She and her wish to pursue aggressive measures despite poor prognosis. Today patient decided she wanted to go home. We are arranging home health care for nurse to drain Pleurx catheter. As well as therapy. And patient will require home oxygen. She is to follow-up with oncology as directed. Physical Exam Const: COMMON NORMALS: no acute distress GENERAL APPEARANCE: cooperative, anxious and appears older than stated age NUTRITIONAL APPEARANCE: cachectic ORIENTATION/CONSCIOUSNESS: Yes awake, Yes oriented to person, Yes oriented to place and Yes oriented to time Neck/C-Spine: COMMON NORMALS: no JVD Resp: COMMON NORMALS: normal respiratory effort and clear to auscultation bilaterally AUSCULTATION: clear to auscultation bilaterally Cardio: COMMON NORMALS: no JVD, regular rate, regular rhythm, S1 normal heart sound present, S2 normal heart sound present, No gallops present (Cardio), No clicks present (Cardio) and No murmurs present (Cardio) RATE: regular rate RHYTHM: regular rhythm HEART SOUNDS: S1 normal heart sound present and S2 normal heart sound present GI: COMMON NORMALS: Normal to inspection, nondistended, normoactive bowel sounds present, Soft to palpation and non-tender PALPATION: Yes Soft to palpation Extremity: COMMON NORMALS: no clubbing, cyanosis or edema and no calf tenderness Neuro: SENSORIUM/ORIENTATION: Yes oriented to person, Yes oriented to place and Yes oriented to time Skin: WOUNDS: Yes wounds noted size (6 x 6 cm approximately on the coccyx) and drainage bloody Urinary Catheter Management^: Quinn: Cath Placed During This Visit: yes, but has since been removed by the nurse Reason for Continuing Indwelling Catheter: Decision to DC Catheter Urinary Catheter Date of Insertion: 11/05/20 Urinary Catheter Time of Insertion: 20:53 Date Urinary Catheter Removed: 11/14/20 Time Urinary Catheter Discontinued: 01:44 Discharge Data Data Completed and Pending: Completed Studies During Hospitalization Category Date Time Status CT abdomen pelvis w con* [id number] Urge nt Cat Scan 11/01/20 13:[address] angio chest PE protcl 14844 Rout ine Cat Scan 11/03/20 08:[address] head wo con* 7 0450 Urgent Cat Scan 11/01/20 13:48 Completed CXRP [XR chest 1V portable 73513] S tat Exams 11/05/20 19:50 Completed XR chest 1V 85343 Stat Exams 11/02/20 13:50 Completed XR chest 1V [place] [id number] Routine Exams 11/05/20 21:23 Completed XR chest 1V [place] ble [id number] Routine Exams 11/08/20 08:12 Completed XR chest 1V [place] ble [id number] Routine Exams 11/09/20 06:00 Completed XR chest 1V [place] ble 16398 Stat Exams 11/08/20 12:41 Completed XR chest 1V [place] ble 14990 Stat Exams 11/14/20 12:07 Completed XR chest 1V [place] ble 35619 Urgent Exams 11/01/20 13:43 Completed CV echo complete* [id number] Routine Ultrasound 11/08/20 08:19 Completed US thoracentesis [id number] Routine Ultrasound 11/02/20 08:05 Completed Pending at discharge Category Date Time Status Blood Culture Sta t Lab 11/02/20 10:21 Uncollected Complete Blood Co unt w/Auto AM LABS Lab 11/17/20 04:00 Ordered Comprehensive Met abolic Panel AM LA BS Lab 11/17/20 04:00 Ordered Labs from last 24 hours 11/16/20 11/16/20 11/16/20 11:35 06:32 05:35 WBC RBC Hgb Hct MCV MCH MCHC RDW Plt Count MPV Neut % (Auto) Lymph % (Auto) [place] % (Auto) Eos % (Auto) Baso % (Auto) Neut # (Auto) Lymph # (Auto) [place] # (Auto) Eos # (Auto) Baso # (Auto) Nucleated RBC % (a uto) Nucleated RBCs # Sodium 138 Potassium 3.2 L Chloride 98 Carbon Dioxide 31 H Anion Gap 12.2 BUN 5 L Creatinine 0.2 L GFR Calculation 379.1 H Glucose 77 POC Glucose 113 H 89 Calculated Osmolal ity 282 L Calcium 7.2 L Total Bilirubin 0.4 AST 45 H ALT 49 H Alkaline Phosphata se 162 H Total Protein 4.4 L Albumin 2.3 L Globulin 2.1 11/16/20 11/15/20 11/15/20 05:35 21:24 19:40 WBC 7.2 RBC 2.42 L Hgb 7.0 L Hct 22.0 L MCV 90.9 MCH 28.9 MCHC 31.8 RDW 15.5 H Plt Count 16 L* MPV 11.4 H Neut % (Auto) 54.2 Lymph % (Auto) 21.4 [place] % (Auto) 8.2 Eos % (Auto) 0.4 Baso % (Auto) 0.1 Neut # (Auto) 3.90 Lymph # (Auto) 1.5 [place] # (Auto) 0.6 Eos # (Auto) 0.0 Baso # (Auto) 0.0 Nucleated RBC % (a uto) 1.0 Nucleated RBCs # 0.1 Sodium 134 L Potassium 3.6 Chloride 95 L Carbon Dioxide 26 Anion Gap 16.6 BUN 6 Creatinine 0.2 L GFR Calculation 379.1 H Glucose 155 H POC Glucose 152 H Calculated Osmolal ity 279 L Calcium 7.4 L Total Bilirubin AST ALT Alkaline Phosphata se Total Protein Albumin Globulin 11/15/20 16:44 WBC RBC Hgb Hct MCV MCH MCHC RDW Plt Count MPV Neut % (Auto) Lymph % (Auto) [place] % (Auto) Eos % (Auto) Baso % (Auto) Neut # (Auto) Lymph # (Auto) [place] # (Auto) Eos # (Auto) Baso # (Auto) Nucleated RBC % (a uto) Nucleated RBCs # Sodium Potassium Chloride Carbon Dioxide Anion Gap BUN Creatinine GFR Calculation Glucose POC Glucose 155 H Calculated Osmolal ity Calcium Total Bilirubin AST ALT Alkaline Phosphata se Total Protein Albumin Globulin Vitals: Last Vital Signs Temp 98.1 F 11/16/20 15:35 Pulse 116 H 11/16/20 15:35 Resp 18 11/16/20 15:35 BP 96/59 11/16/20 15:35 Pulse Ox 94 11/16/20 15:35 Discharge Plan Discharge Patient Disposition: Home Condition: Fair Prescriptions: New allopurinol 300 mg Tablet 300 mg PO DAILY Qty: 30 RF: 0 acetaminophen 650 mg/20.3 mL Solution 500 mg PO Q4H PRN (Reason: Mild Pain Or Increase Temp) Qty: 600 RF: 0 Continued diazepam 5 mg/5 mL (1 mg/mL, 5 mL) solution See Rx Instructions .ROUTE .COMPLEX RF: 0 Stiolto Respimat 2.5-2.5 mcg/actuation mist 2 puff inhalation DAILY 30 Days Qty: 4 RF: 4 albuterol sulfate [ProAir HFA] 90 mcg/actuation HFA aerosol inhaler 2 puff inhalation QID PRN (Reason: shortness of breath or wheezing) 30 Days Qty: 18 RF: 4 ibuprofen [Children's Ibuprofen] 100 mg/5 mL Suspension 200 mg PO Q4H PRN (Reason: Pain) RF: 0 Hold Instructions: Resume on 10/23/20. hydroxyzine HCl 10 mg/5 mL Solution See Rx Instructions .ROUTE .COMPLEX RF: 0 ClearLax 17 gram/dose Powder 17 g PO DAILY PRN (Reason: Constipation) RF: 0 Gummies Children Multivitamin Tablet,Chewable 2 tab PO QAM RF: 0 Discontinued fentanyl 50 mcg/hr patch 72 hour 1 patch transdermal Q72H RF: 0 No Action hydrocodone-acetaminophen 7.5-325 mg/15 mL solution 15 ml PO Q4H PRN (Reason: pain) RF: 0 Discharge Orders: Discharge Order (Routine); Ordered 11/16/20 Ordered By: Marek Nicolas Other Ambulatory Orders: DME: Oxygen (Order) Location: None Selected Ordered By: Marek Nicolas DME: Wheelchair (Order) Location: None Selected Ordered By: Marek Nicolas Referrals: Ashley Jennings FNP [Primary Care Provider] - Discharge Attestations Time Spent in Discharge Care*: greater than 30 min Status at Discharge: Cognitive status at discharge: cognitively intact, Behavioral status at discharge: cooperative, Functional status at discharge: wheelchair bound Overall status at discharge: patient has a new baseline Quality Metrics Clinical Quality Measures During this hospital stay, did patient experience: None Coding Level of Care Code Acute Manufacturing Quality Manager for g Fwd Diagnoses Pancytopenia D61.818 Malignant pleural effusion J91.0 Port-A-Cath in place Z95.828 Neuroendocrine carcinoma metastatic to multiple sites C7A.8; C7B.8 Pleural effusion J90 Nicotine addiction F17.200 Anxiety F41.9 Pain R52 Hypokalemia E87.6 Hypomagnesemia E83.42 Decubitus ulcer L89.90
== END 2020-11-16 18:02 | disposition home or self-care (01) | DRG 843 ==
LOC: ER 16:32 → MEDSURG 17:32 → ICU 11-05 20:11 → MEDSURG 11-10 20:11
PROVIDERS: Hospitalist; Internal Medicine; Admitting Provider Internal Medicine; Emergency Provider Emergency Medicine; PCP Nurse Practitioner Family; Visit Provider Internal Medicine
DX: C7A.8 Other malignant neuroendocrine tumors (principal); J96.01 Acute respiratory failure with hypoxia; J18.9 Pneumonia, unspecified organism; D61.810 Antineoplastic chemotherapy induced pancytopenia; B37.0 Candidal stomatitis; C7B.8 Other secondary neuroendocrine tumors; J91.0 Malignant pleural effusion; E86.0 Dehydration; E83.52 Hypercalcemia; F41.9 Anxiety disorder, unspecified; F17.210 Nicotine dependence, cigarettes, uncomplicated; D69.6 Thrombocytopenia, unspecified; D64.9 Anemia, unspecified; Z95.828 Presence of other vascular implants and grafts; G89.3 Neoplasm related pain (acute) (chronic); Z79.899 Other long term (current) drug therapy; T45.1X5A Adverse effect of antineoplastic and immunosuppressive drugs, initial encounter; Z79.51 Long term (current) use of inhaled steroids; E87.6 Hypokalemia; E83.42 Hypomagnesemia
CPT/HCPCS: 12345; 32555; 36415; 36416; 36430; 36591; 36600; 51702; 70450; 71045; 71275; 74177; 80048; 80051; 80053; 80202; 80500; 81001; 82042; 82274; 82330; 82803; 82805; 82945; 82962; 83010; 83605; 83615; 83735; 83986; 84100; 84145; 84157; 84315; 84443; 84550; 85007; 85025; 85362; 85378; 85384; 85610; 85730; 86850; 86900; 86920; 87040; 87070; 87075; 87205; 89050; 92526; 92610; 93005; 93306; 94002; 94003; 94640; 94762; 94799; 96372; 97161; 97167; 97530; 99283; J0330; J0696; J0743; J1100; J1450; J1815; J1885; J1940; J1956; J2060; J2270; J2405; J2430; J2505; J2543; J2704; J3010; J3370; J3430; J3475; J3480; J3490; J3535; J7030; J7040; J7050; J9045; J9181; P9016; P9037; Q9967

== ENCOUNTER 2020-11-19 05:42 | Outpatient (RCR) | payer MEDICAID, SELFPAY ==
[2020-11-18 12:57] LABS: Basophils % 0.1 %; Eosinophils % 0.1 %; Hemoglobin 7.1 g/dL (11.5-15.3); Lymphocytes # 2.2 10^3/uL (0.8-4.8); Lymphocytes % 9.7 %; Mean Corpuscular HGB Conc 30.9 g/dL (30.0-36.0); Mean Corpuscular Hemoglobin 28.6 pg (28.0-34.0); Mean Corpuscular Volume 92.7 fL (81-99); Monocytes # 3.1 10^3/uL (0.2-0.9); Monocytes % 13.8 %; Neutrophils # 12.82 10^3/uL (1.8-7.7); Neutrophils % 57.7 %; Nucleated Red Blood Cells # 0.5 /100WBC; Red Blood Count 2.48 10^6/uL (4.1-5.3); Red Cell Distribution Width 15.9 % (12.1-15.1); White Blood Count 22.3 10^3/uL (4.0-10.0)
[2020-11-18 13:15] LABS: Alanine Aminotransferase 51 U/L (0-33); Albumin Level 2.5 g/dL (3.5-5.2); Alkaline Phosphatase 204 IU/L (35-105); Anion Gap 15.9 (5-19); Aspartate Amino Transferase 50 U/L (0-32); Blood Urea Nitrogen 9 mg/dL (6-20); Calcium 8.1 mg/dL (8.5-10.5); Carbon Dioxide 24 mmol/L (22-29); Chloride 100 mmol/L (98-107); Globulin 2.3 g/dL (1.3-4.6); Glomerular Filtration Rate 379.1 mL/min (90-130); Glucose 114 mg/dL (65-115); Osmolality Calculated 282 mOsm/kg (285-295); Potassium 3.9 mmol/L (3.5-5.1); Sodium 136 mmol/L (136-145); Total Bilirubin 0.3 mg/dL (0.15-1.2); Total Protein 4.8 g/dL (6.6-8.7)
[2020-11-18 13:23] LABS: Slide Review Slide Review Perform
[2020-11-18 13:28] LABS: Platelet Count 12 10^3/cmm (130-400)
[2020-11-19] VITALS (12 sets, daily range): BP systolic 105–118; BP diastolic 69–76; PULSE 99–105; RESP 17–18; TEMP 37.2–37.4; O2SAT 94–116
[2020-11-19] MEDS: acetaminophen 325 mg Tablet 650 MG PO (09:00)
[2020-11-19] MEDS: diphenhydrAMINE 25 mg Capsule PO (09:00)
[2020-11-19] MEDS: sodium chloride 0.9% 250 ML 999 ML IV (09:14)
[2020-11-19] MEDS: LORazepam 0.5 mg Tablet PO (10:30)
[2020-11-19] MEDS: FUROsemide 10 mg/mL SDV 2mL 20 MG IV (10:40)
--- NOTE | 2020-11-19 12:05 | ONC FU_ITS ---
Dr. Alberts follow up note Patient: Sia Coffman Unit #: [id number]: [id number] Dicatated By: Emile Alberts M.D.Date of Visit:Nov 19, 2020 Onc Med Follow-up/Prog Note History of Present Illness: Ms. Michelle Coffman, is a 50-year-old female with history of COPD and longstanding history of smoking e.g. 1 pack/day for 40+ years, recently developed progressive productive cough dyspnea on exertion and right posterior/upper back pain and on September 03, 2020 she went to hospital for evaluation and CT scan of the chest was done on September 03, 2020 which showed right apical soft tissue mass measuring 6 x 2.6 cm likely a Pancoast tumor or metastatic disease. There is significant lymphadenopathy within the mediastinum and hilum the largest confluent group of lymph nodes in the right paratracheal measuring 5.2 x 2.5 cm. And additional small nodules along the right diaphragmatic surface may be metastatic deposit. Severe chronic emphysema. Suspicious for lymphangitic spread of tumor to the right upper lobe., No rib destruction of metastatic disease to the bones by CT. No pulmonary embolism. 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 Denies any headaches blurred vision or double vision. Denies any lower extremity weakness, denies any dysphagia but she has history of significant weight loss as per patient she used to weigh 140 pounds 3 [address] ago [address] now way around 80 pounds. Patient still smoke about pack a day, denies alcohol use. Patient was referred to radiation oncology for progressive right chest pain was seen by radiation oncology on September 27, 2020, patient underwent CT PET scan in [place] on October 28, 2020 which showed large right upper lobe pulmonary mass directly invading mediastinum with extensive involvement as well as right lower neck and right thyroid lobe a moderate right pleural effusion was seen also. Multiple ipsilateral and contralateral pulmonary and pleural implants are present consistent with metastatic involvement. Hepatomegaly with extensive liver involvement likely right adrenal gland involvement and large right adnexal mass for concern for synchronous malignancy Extensive skeleton metastatic involvement including axial spine, skull base and proximal appendicular skeleton CT scan of the head done recently showed no evidence of brain mets Patient was admitted to hospital on November 01, 2020 with progressive shortness of breath found to have a large right pleural effusion and hypercalcemia treated with IV fluids and right pleural effusion was drained shows no evidence of malignancy patient's overall condition was deteriorating and the case was discussed with hospitalist and patient's , considering her extensive disease and poor performance status treatment options including systemic chemotherapy or hospice was discussed but her and patient opted for chemotherapy trial before considering hospice, patient was given modified dose of carboplatin/etoposide on November 04, 2020 and second dose of etoposide was given on November 05, 2020 subsequently patient developed respiratory distress and was intubated , so she could not receive third dose of etoposide. With supportive care patient overall condition started improving and she was extubated and discharged home, came to clinic on November 18, 2020 and her lab work-up showed white blood count 22.3 hemoglobin 7.1 hematocrit 23.0 platelets 12,000, she was offered 2 units of packed RBCs along with unit of platelets on November 19, 2020 Came for follow-up, complaining of generalized weakness and fatigue, now receiving packed RBCs, tolerating well, as per her overall condition is getting better but patient is not maintaining hydration and other issue was she has a decub for which home visiting nurse is managing. But denies any nausea or vomiting denies any diarrhea or constipation, denies any abdominal pain denies any shortness of breath at rest. She had low-grade fever earlier but now resolved. Medications: Childrens Ibuprofen 15 mL (of 100 mg/5mL) Suspension Oral q 6 hours, HYDROcodone-Acetaminophen 10 mL (of 7.5-325 mg) Tablet Oral daily PRN, hydrOXYzine HCl 1 Tablet (of 10 mg) Oral at bedtime PRN Allergies: Aspirin Review of Systems: Review of Systems is not available for this patient. Vital Signs: Vitals are not available for this patient. Performance Status: 3 - Capable of only limited self-care, confined to bed or chair more than 50% of waking hours. (ECOG) Physical Examination: ENMT - Poor oral hygiene, no thrush no mucositis, Respiratory - Poor air entry mild wheezing, Cardiovascular - Regular rate and rhythm of heart, Abdomen - Soft, bowel sounds present, Extremities - No edema. Lab/Imaging: Test performed on Nov 03, 2020 11:35 Creatinine 0.8 mg/dL Cr Clearance (Est) 51.61 mL/min Test performed on Oct 08, 2020 00:00 Manual Diff Cancelled via OM: Cancelled in Connected System Impression: Metastatic Poorly differentiated carcinoma with neuroendocrine differentiation per transbronchial biopsy done on September 10, 2020 also confirmed in 4R lymph node.With extensive mets to the liver and adrenal and skeleton per CT PET scan done on October 28, 2020 Ki-67, Napsin-A, p53, CK 5/6, CK20 stains pending CT scan of chest done on September 03, 2020 showed right apical soft tissue mass measuring 6 x 2.6 cm, likely a Pancoast tumor or metastatic disease. Significant lymphadenopathy within the mediastinum and hilum. Largest confluent group of lymph nodes is right paratracheal measuring 5.2 x 2.5 cm. Severe chronic emphysema Additional small nodules right diaphragmatic surface No bone involvement No pulmonary embolism Mildly hypoplastic left adrenal gland. CT PET scan done on October 28, 2020 showed large right upper lobe pulmonary mass directly invades the mediastinum and extensive involvement as well as right lower neck and right thyroid lobe. Moderate right pleural effusion. Multiple ipsilateral and contralateral pulmonary and pleural implants Hepatomegaly with extensive liver involvement, right adrenal gland involvement and a right adnexal mass concerning for synchronous malignancy Extensive skeleton metastatic disease, Started on systemic chemotherapy with carboplatin/etoposide on November 04, 2020, patient received 2 doses of etoposide subsequently desaturated and intubated, eventually improved Plan: Discussed with patient and her regarding her labs, white blood count 22.3 hemoglobin 7.1 platelets 23 platelets 12,000 on November 18, 2020 CMP within normal limit except AST 50 ALT 51 alk phos 204 and calcium is 8.1 Clinically, patient is in mild to moderate distress due to her poor performance status and she also has decub and now being given packed RBCs for severe anemia and she will also get a platelet transfusion but overall there is a significant improvement since her last hospitalization her right pleural effusion has improved patient has Pleurx drainage as per amount of fluid has gone down significantly. Patient is due for second cycle of chemotherapy next week, she will return to clinic on Sunday with CBC CMP and if blood count is appropriate, will consider second cycle of chemotherapy with carboplatin/etoposide and as her overall performance status improves, we may consider adding immunotherapy Tecentriq and also consider biphosphonate for bone mets. Increase white blood count probably due to Neulasta and decub, will start her on Levaquin 5 mg p.o. daily. Patient was advised to maintain hydration Signed By: Emile Alberts M.D. <<Signature on File>>
== END 2020-11-21 23:59 | disposition home or self-care (01) ==
LOC: ONCMED 05:42
PROVIDERS: Radiology Radiation Oncology; PCP Nurse Practitioner Family; Visit Provider Internal Medicine Hematology & Oncology
DX: C34.11 Malignant neoplasm of upper lobe, right bronchus or lung (principal); C79.51 Secondary malignant neoplasm of bone; C78.7 Secondary malignant neoplasm of liver and intrahepatic bile duct; C79.72 Secondary malignant neoplasm of left adrenal gland; C79.71 Secondary malignant neoplasm of right adrenal gland; C77.8 Secondary and unspecified malignant neoplasm of lymph nodes of multiple regions; J43.9 Emphysema, unspecified; R16.0 Hepatomegaly, not elsewhere classified; Z79.899 Other long term (current) drug therapy
CPT/HCPCS: 36430; 80053; 85025; 86850; 86900; 86920; 99215; J1940; J7050; P9016